=== PATIENT | male | born 1975 | race Two or more races ===

== ENCOUNTER 2024-10-15 08:02 | Inpatient (IN) | payer BC, OTHER ==
[~2024-10-15] VITALS: Ht 177.8 cm; Wt 67.2 kg
[~2024-10-15 08:02] MED LIST: APIX5TAB PO; B-CO-6 PO; CARV25TA55 PO; INSU100I54 SC; INSU1INJ4 SC; ROPI2TAB27 PO
--- NOTE | 2024-10-15 08:40 | ED.PDOC ---
GI ASSESSMENT HPI Comments 49 Y M ADAM, with PMHX of CKD, DM2,CHF, HTN and SHX of a triple bypass presents to the ED with CC of ABD pain. Per EMS patient has been experiencing ABD pain since 10/12/24 which worsened today while receiving dialysis and was sent to the ED after completing it. Patient states that he experiencing epigastric pain with associated symptoms of N/V/D. Patient denies any tobacco usage, ETOH, or illicit drugs. Patient denies SOB, chest pain, fever, chills, or cough. Chief Complaint: Abdominal Pain Time Seen by MD: 07:50 Reviewed Notes: Nurses Notes, Sheet Metal Engineer Notes, Medications, Allergies Allergies: Coded Allergies: Rivaroxaban (Verified Allergy, Unknown, 10/15/24) Information Source: Patient, Emergency Med Personnel Mode of Arrival: EMS Duration: Since onset Prehospital treatment: 12 Lead EKG Vomitus: Watery Stool: Watery Severity: Moderate Recent: None Recent Hx of: None Pain Location: Epigastric Modifying Factors: Nothing Associated sign and symptoms: Nausea, Vomiting, Diarrhea Past Medical History PAST MEDICAL HISTORY: DM, HTN, [place] Surgical History (Other): TRIPLE BIPASS Family History Family History: Unknown Social History Smoker: Non-Smoker Alcohol: Denies ETOH Use Drugs: Denies Drug Use Lives In: Home Constitutional: denies: chills, diaphoresis, fatigue, fever, malaise, sweats, weakness, others EENTM: denies: blurred vision, double vision, ear bleeding, ear discharge, ear drainage, ear pain, ear ringing, eye pain, eye redness, hearing loss, mouth pain, mouth swelling, nasal discharge, nose bleeding, nose congestion, nose pain, photophobia, tearing, throat pain, throat swelling, voice changes, others Respiratory: denies: cough, hemoptysis, orthopnea, SOB at rest, shortness of breath, SOB with excertion, stridor, wheezing, others Cardiovascular: denies: chest pain, dizzy spells, diaphoresis, Dyspnea on exertion, edema, irregular heart beat, left arm pain, lightheadedness, palpitations, PND, syncope, others Gastrointestinal: reports: abdominal pain, diarrhea, nausea, vomiting; denies: abdomen distended, blood streaked bowels, constipated, dysphagia, difficulty swallowing, hematemesis, melena, poor appetite, poor fluid intake, rectal bleeding, rectal pain, others Genitourinary: denies: burning, dysuria, flank pain, frequency, hematuria, incontinence, penile discharge, penile sore, pain, testicle pain, testicle swelling, urgency, others Neurological: denies: dizziness, fainting, headache, left sided numbness, left sided weakness, numbness, paresthesia, pre-existing deficit, right sided numbness, right sided weakness, seizure, speech problems, tingling, tremors, weakness, others Musculoskeletal: denies: back pain, gout, joint pain, joint swelling, muscle pain, muscle stiffness, neck pain, others Integumetry: denies: bruises, change in color, change in hair/nails, dryness, laceration, lesions, lumps, rash, wounds, others Allergic/Immunocompromised: denies: Difficulty Healing, Frequent Infections, Hives, Itching, others Hematologic/Lymphatic: denies: anemia, blood clots, easy bleeding, easy bruising, swollen glands, others Endocrine: denies: excessive hunger, excessive sweating, excessive thirst, excessive urination, flushing, intolerance to cold, intolerance to heat, unexplained weight gain, unexplained weight loss, others Psychiatric: denies: anxiety, bipolar disorder, depression, hopeless, panic disorder, schizophrenia, sleepless, suicidal, others All Other Systems: Reviewed and Negative Physical Exam General Appearance: Moderate Distress, Obese HEENT: Normal ENT Inspection, Pharynx Normal, TMs Normal Neck: Full Range of Motion, Non-Tender, Normal, Normal Inspection Respiratory: Chest Non-Tender, No Accessory Muscle Use, No Respiratory Distress, Other (Coarse breath sounds) Cardiovascular: No Edema, No JVD, No Murmur, No Gallop, Normal Peripheral Pulses, Regular Rate/Rhythm Breast Exam: Deferred Gastrointestinal: No Organomegaly, Non Tender, No Pulsatile Mass, Normal Bowel Sounds, Soft Genitalia: Deferred Pelvic: Deferred Rectal: Deferred Extremities: No calf tenderness, Normal capillary refill, Normal inspection, Normal range of motion, Non-tender, No pedal edema Musculoskeletal : Apperance: Normal Neurologic: Alert, health and safety manager II-XII nml as Tested, No Motor Deficits, Normal Affect, Normal Mood, No Sensory Deficits Cerebellar Function: NOT DONE Reflexes: NOT DONE Skin: Dry, Normal Color, Warm Peripheral Pulses: 3+ Radial (R), 3+ Radial (L) Lymphatic: No Adenopathy EKG EKG : Pulse Rate (adult): 97 Cardiac Rhythm: NSR Block: RBBB Comments LFPB Was a procedure done? Was a procedure done?: No GI differential Dx Differential Diagnosis: Cholangitis, Cholecystitis, Constipation, Esophagitis, Gastritis/PUD, Gastroenteritis, Food Poisoning, Bacterial, Viral, Renal Failure X-Ray, Labs, Meds, VS Vital Signs Date Time Temp Pulse Resp B/P (MAP) Pulse Ox O2 Delivery O2 Flow Rate FiO2 10/15/24 10:19 100 16 96 Room Air* 0 21 10/15/24 10:18 98.6 100 16 139/72 (94) 98 98.6 10/15/24 10:08 100 16 139/72 10/15/24 09:13 97 10/15/24 08:40 90 10/15/24 08:13 97 10/15/24 08:04 98.2 97 18 149/80 (103) 99 Lab Test 10/15/24 08:39 Range/Units White Blood Count 16.8 H 4.4-10.8 10^3/uL Red Blood Count 3.63 L 4.5-5.90 10^6/uL Hemoglobin 11.5 L 13.5-17.5 g/dL Hematocrit 33.9 L 41.0-53.0 % Mean Corpuscular Volume 93.5 80.0-100.0 fL Mean Corpuscular Hemoglobin 31.7 28.0-32.0 pg Mean Corpuscular Hemoglobin Concent 33.9 32.0-36.0 g/dL Red Cell Distribution Width 15.2 H 11.8-14.3 % Platelet Count 240 140-450 10^3/uL Mean Platelet Volume 8.7 6.9-10.8 fL Neutrophils (%) (Auto) 87.8 H 37.0-80.0 % Lymphocytes (%) (Auto) 5.8 L 10.0-50.0 % Monocytes (%) (Auto) 5.5 0.0-12.0 % Eosinophils (%) (Auto) 0.6 0.0-7.0 % Basophils (%) (Auto) 0.3 0.0-2.0 % Neutrophils # (Auto) 14.7 H 1.6-8.6 10 ^3/uL Lymphocytes # (Auto) 1.0 0.4-5.4 10 ^3/uL Monocytes # (Auto) 0.9 0-1.3 10 ^3/uL Eosinophils # (Auto) 0.1 0-0.8 10 ^3/uL Basophils # (Auto) 0.1 0-0.2 10 ^3/uL Nucleated Red Blood Cells 0.1 % Sodium Level 134 L 136-145 mmol/L Potassium Level 3.6 3.5-5.1 mmol/L Chloride Level 90 L 98-107 mmol/L Carbon Dioxide Level 31 20-31 mmol/L Anion Gap 13 5-15 Blood Urea Nitrogen 28 H 9-23 mg/dL Creatinine 4.43 H 0.700-1.30 mg/dL Glomerular Filtration Rate Calc 15 >90 mL/min BUN/Creatinine Ratio 6.3 L 10.0-20.0 Serum Glucose 173 H 74-106 mg/dL Calcium Level 9.9 8.7-10.4 mg/dL Lipase 44 12-53 U/L Current Medications Medications (Trade) Dose Ordered Sig/Joshua Route Start Time Stop Time Status Last Admin Piperacillin Sod/ Tazobactam Sod 100 ml @ 100 mls/hr ONCE ONCE IV 10/15/24 09:45 10/15/24 10:44 DC 10/15/24 12:00 Metronidazole 100 ml @ 100 mls/hr ONCE ONCE IV 10/15/24 09:45 10/15/24 10:44 DC 10/15/24 10:08 Morphine Sulfate 4 mg ONCE ONCE IV 10/15/24 09:45 10/15/24 09:46 DC 10/15/24 10:08 Ondansetron HCl (Zofran) 4 mg ONCE ONCE IV 10/15/24 09:45 10/15/24 09:46 DC 10/15/24 10:08 [place] [address] Ph: [phone] DIAGNOSTIC IMAGING Diagnostic Imaging Report : [id number] Signed PATIENT: Irving Payne ACCT: [id number] UNIT: [id number] : 1975 LOC: ER ROOM / BED: / AGE / SEX: 49 / M ADM STATUS: REG ER SERVICE 4 ORDERING PHYSICIAN: ROBERT ZENG MD PROCEDURE(s): CXRP - CHEST PORTABLE REASON: sob ORDER NUMBER(s): [id number], ACCESSION NUMBER(s): [id number] EXAM: XY CHEST PORTABLE Indication: sob Technique: Single frontal view of the chest was obtained Comparison: None FINDINGS: Lines and Tubes: None Lungs: Pulmonary vascular congestion. Pleura: No effusion. No pneumothorax. Cardiomediastinal contours: Cardiomegaly. Bones: No acute osseous abnormality. IMPRESSION: No acute cardiopulmonary disease. ATED BY: DONNA BALDWIN MD DICTATED DATE/TIME: 10/15/24855 SIGNED BY: DONNA BALDWIN MD SIGNED DATE/TIME: 10/15/24855 CC: Patient alert. Complaining of abdominal pain. Vitals stable. Answering all questions. Symptoms started few days ago but got worse while getting dialysis. He does get dialysis on Monday. WBC elevated. Possible colitis. Establish intravenous access. Was given Zosyn. Was given Flagyl. Reviewed his previous visit. Explained to the patient. Continue cardiac monitoring. CT AB PEL WO CON: [place] [address] Ph: [phone] DIAGNOSTIC IMAGING Diagnostic Imaging Report : [id number] Signed PATIENT: IRVING PAYNE JACCT: [id number] UNIT: [id number] : 1975 LOC: ER ROOM / BED: / AGE / SEX: 49 / M ADM STATUS: REG ER SERVICE 1051 ORDERING PHYSICIAN: OSVALDO VIDALES DNP PROCEDURE(s): ABPL - CT AB PEL WO CON-NO ORAL OR IV REASON: eval for acute abd pain ORDER NUMBER(s): [id number], ACCESSION NUMBER(s): [id number] CLINICAL INFORMATION: 49 years old, Male; acute abdominal pain. TECHNIQUE: Axial CT images of the abdomen and pelvis were obtained without IV contrast. Coronal and sagittal reformatted images were obtained, reviewed, and stored. Evaluation of the parenchymal organs is limited without IV contrast. Evaluation of the bowel and mesentery is limited without oral contrast. All CT scans at this medical facility are performed using dose modulation techniques as appropriate to a performed exam including the following: Automated exposure control was utilized; adjustment of the MA and/or KV according to patient size; and use of iterative reconstruction technique. CTDIvol = 26.76, 0.07, 0.07 mGy DLP = 1619.0 mGy-cm COMPARISON: None FINDINGS: Lung bases: Atelectasis in the lung bases. Liver: Grossly unremarkable in its noncontrast enhanced appearance. No abnormal density or focal lesion identified. Biliary: Distended gallbladder. Moderate adjacent inflammatory stranding. Small calcified gallstone near the gallbladder neck. Spleen: Unremarkable. Pancreas: Moderate atrophy. Adrenal glands: Unremarkable. No mass. Kidneys: No hydronephrosis. Arterial calcifications at the renal joshua bilaterally. No obstructing calculi. Aorta/Vascular: Moderate atherosclerotic calcification. No aneurysm. Retroperitoneum: No mass or lymphadenopathy. Bowel/mesentery: No small bowel obstruction. Appendix is visualized and appears unremarkable. Pelvic organs: Grossly unremarkable. Bladder: Unremarkable. No mass. Abdominal wall: No mass or hernia. Bones: No acute fracture or suspicious intraosseous lesion. IMPRESSION: 1. Distended gallbladder with small calcified gallstone near the gallbladder neck and moderate inflammatory stranding. Findings may be seen with acute cholecystitis in the appropriate clinical setting. Correlate with clinical findings. Ultrasound could be obtained to further characterize. 2. Additional nonacute findings as detailed above. ATED BY: JUAN WATKINS DO DICTATED DATE/TIME: 10/15/24 1135 SIGNED BY: JUAN WATKINS DO SIGNED DATE/TIME: 10/15/24 1135 CC: Time of 1ST Reevaluation: 08:20 Reevaluation 1ST: Unchanged Patient Education/Counseling: Diagnosis, Treatment Family Education/Counseling: No Family Present Departure 1 Departure Time of Disposition: 09:41 Impression: Primary Impression: Acute abdominal pain Additional Impressions: Non-specific colitis Chronic kidney disease on chronic dialysis Disposition: ADMITTED INPATIENT Admit to: Med Surg Condition: Guarded Critical Care Note Critical Care Time?: Yes (45 min-critical care time only) Stability Stability form required: No Heart Score Heart Score: Heart Score Response (Comments) Value History Highly Suspicious 2 EKG Normal 0 Age 45-64 1 Risk Factors >3 or Hx ASHD 2 Troponin Normal limit 0 Total 5 I personally scribed for ROBERT ZENG MD ([email or web address]) on 10/15/24 at 08:40. Electronically submitted by Christ Albrecht ([email or web address]). I personally scribed for ROBERT ZENG MD ([email or web address]) on 10/15/24 at 08:49. Electronically submitted by Christ Albrecht ([email or web address]). I personally scribed for ROBERT ZENG MD ([email or web address]) on 10/15/24 at 09:13. Electronically submitted by Christ Albrecht ([email or web address]). I personally scribed for ROBERT ZENG MD ([email or web address]) on 10/15/24 at 09:30. Electronically submitted by Christ Albrecht ([email or web address]). I personally scribed for ROBERT ZENG MD ([email or web address]) on 10/15/24 at 12:32. Electronically submitted by Christ Albrecht ([email or web address]). ROBERT ZENG MD Oct 15, 2024 08:40
--- NOTE | 2024-10-15 08:57 | DVH ---
EXAM: XY CHEST PORTABLE Indication: sob Technique: Single frontal view of the chest was obtained Comparison: None FINDINGS: Lines and Tubes: None Lungs: Pulmonary vascular congestion. Pleura: No effusion. No pneumothorax. Cardiomediastinal contours: Cardiomegaly. Bones: No acute osseous abnormality. IMPRESSION: No acute cardiopulmonary disease.
[2024-10-15 09:03] LABS: Basophils # (auto) 0.1 10 ^3/uL (0-0.2); Basophils % (auto) 0.3 % (0.0-2.0); Eosinophils # (auto) 0.1 10 ^3/uL (0-0.8); Eosinophils % (auto) 0.6 % (0.0-7.0); Hematocrit 33.9 % (41.0-53.0); Hemoglobin 11.5 g/dL (13.5-17.5); Lymphocytes % (auto) 5.8 % (10.0-50.0); Mean Corpuscular Hemoglobin 31.7 pg (28.0-32.0); Mean Corpuscular Hgb Conc. 33.9 g/dL (32.0-36.0); Mean Corpuscular Volume 93.5 fL (80.0-100.0); Monocytes # (auto) 0.9 10 ^3/uL (0-1.3); Monocytes % (auto) 5.5 % (0.0-12.0); Neutrophils # (auto) 14.7 10 ^3/uL (1.6-8.6); Neutrophils % (auto) 87.8 % (37.0-80.0); Nucleated Red Blood Cells % 0.1 %; Platelet Count (auto) 240 10^3/uL (140-450); Red Blood Cells 3.63 10^6/uL (4.5-5.90); Red Cell Distribution Width 15.2 % (11.8-14.3); White Blood Cell 16.8 10^3/uL (4.4-10.8)
[2024-10-15 09:10] LABS: Potassium 3.6 mmol/L (3.5-5.1)
[2024-10-15 09:11] LABS: Anion Gap 13 (5-15); Calcium 9.9 mg/dL (8.7-10.4); Carbon Dioxide 31 mmol/L (20-31)
[2024-10-15 09:16] LABS: BUN/Creatinine Ratio 6.3 (10.0-20.0); Lipase 44 U/L (12-53)
[2024-10-15 09:20] LABS: Sodium 134 mmol/L (136-145)
[2024-10-15 09:21] LABS: Blood Urea Nitrogen 28 mg/dL (9-23); Chloride 90 mmol/L (98-107); Glucose 173 mg/dL (74-106)
[2024-10-15] MEDS: MORPHINE SULFATE 4 MG/ML SYR/VIAL IV ONE (10:08)
[2024-10-15] MEDS: metroNIDAZOLE 500MG/100ML 100 ML IV ONE (10:08)
[2024-10-15] MEDS: ONDANSETRON HCL 4 MG/2 ML VIAL IV ONE (10:08)
[2024-10-15 10:19] VITALS: PULSE 100; RESP 16; O2SAT 96
--- NOTE | 2024-10-15 11:37 | DVH ---
CLINICAL INFORMATION: 49 years old, Male; acute abdominal pain. TECHNIQUE: Axial CT images of the abdomen and pelvis were obtained without IV contrast. Coronal and sagittal reformatted images were obtained, reviewed, and stored. Evaluation of the parenchymal organs is limited without IV contrast. Evaluation of the bowel and mesentery is limited without oral contra st. All CT scans at this medical facility are performed using dose modulation techniques as appropria te to a performed exam including the following: Automated exposure control was utilized; adjustment o f the MA and/or KV according to patient size; and use of iterative reconstruction technique. CTDIvol = 26.76, 0.07, 0.07 mGy DLP = 1619.0 mGy-cm COMPARISON: None FINDINGS: Lung bases: Atelectasis in the lung bases. Liver: Grossly unremarkable in its noncontrast enhanced appearance. No abnormal density or focal les ion identified. Biliary: Distended gallbladder. Moderate adjacent inflammatory stranding. Small calcified gallstone n ear the gallbladder neck. Spleen: Unremarkable. Pancreas: Moderate atrophy. Adrenal glands: Unremarkable. No mass. Kidneys: No hydronephrosis. Arterial calcifications at the renal joshua bilaterally. No obstructing jose culi. Aorta/Vascular: Moderate atherosclerotic calcification. No aneurysm. Retroperitoneum: No mass or lymphadenopathy. Bowel/mesentery: No small bowel obstruction. Appendix is visualized and appears unremarkable. Pelvic organs: Grossly unremarkable. Bladder: Unremarkable. No mass. Abdominal wall: No mass or hernia. Bones: No acute fracture or suspicious intraosseous lesion. IMPRESSION: 1. Distended gallbladder with small calcified gallstone near the gallbladder neck and moderate inflam matory stranding. Findings may be seen with acute cholecystitis in the appropriate clinical setting. Correlate with clinical findings. Ultrasound could be obtained to further characterize. 2. Additional nonacute findings as detailed above.
[2024-10-15] MEDS: PIPERACILLIN-TAZOB 3.375GM 100 ML IV ONE (12:00)
[2024-10-15] MEDS ORDERED: NITROGLYCERIN 0.4 MG SL TAB SL PRN (12:15)
[2024-10-15] MEDS ORDERED: DEXTROSE (50%) 50ML SYRG IV PRN (12:15)
[2024-10-15] MEDS ORDERED: ONDANSETRON HCL 4 MG/2 ML VIAL IV PRN (12:15)
--- NOTE | 2024-10-15 13:00 | DVH ---
INDICATION: acute gallstone eval for bili duct obstruction ; abdominal pain TECHNIQUE: Multiple real-time sonographic images were obtained of the right upper quadrant. COMPARISON: 10/15/2024 FINDINGS: Evaluation is extremely limited due to body habitus. The liver demonstrates increased echotexture without focal mass lesions. The liver measures 20 cm. T here is no intrahepatic or extrahepatic ductal dilatation. The common duct is not well visualized du e to obscuration from bowel gas. There are gallstones. There is mild gallbladder wall thickening measuring 6 mm. The right kidney measures 11 cm. The right kidney is normal in contour, size, and shape. The echog enicity is normal. There is no hydronephrosis. The pancreas is not well visualized due to overlying bowel gas. IMPRESSION: Evaluation is limited due to body habitus and obscuration from bowel gas. Gallstones with gallbladde r wall thickening. Correlate clinically for acute cholecystitis. Common bile duct not well visualiz ed due to obscuration from bowel gas. Hepatic steatosis and hepatomegaly.
[2024-10-15 13:50] VITALS: BP 122/74; PULSE 88; RESP 18; TEMP 98.7; O2SAT 98
[2024-10-15] MEDS: metroNIDAZOLE 500MG/100ML 100 ML IV SCH (14:00)
[2024-10-15] MEDS: cefTRIAXone 1GM/50ML D5W 50 ML IV ONE (15:08)
--- NOTE | 2024-10-15 16:20 | DVHINCON2 ---
Date of service: Oct 15, 2024 Allergies: Coded Allergies: Rivaroxaban (Verified Allergy, Unknown, 10/15/24) Current Medications Current Medications Medications (Trade) Dose Ordered Sig/Joshua Route PRN Reason Start Time Stop Time Status Last Admin Ondansetron HCl (Zofran) 4 mg Q4HP PRN IV NAUSEA / VOMITING 10/15/24 12:15 Docusate Sodium (Colace Capsule) 100 mg BIDPRN PRN PO FOR CONSTIPATION 10/15/24 12:15 Morphine Sulfate 2 mg Q4HPRN PRN IV SEVERE PAIN (7-10 PAIN SCALE) 10/15/24 12:15 Nitroglycerin (Ntrostat Sublingual) 0.4 mg Q5MINP PRN SL FOR CHEST PAIN 10/15/24 12:15 Diagnostic Test (Pha) (Accu-Chek Comfort Curve T) 1 strip Q6HR 10/15/24 18:00 Insulin Human Regular (InsuLIN R) Q6HR SC 10/15/24 18:00 Dextrose 50 ml UD PRN IV Blood Sugar LESS THAN 60 10/15/24 12:15 Metronidazole 100 ml @ 100 mls/hr Q8HR IV 10/15/24 14:00 Vital Signs Vital Signs Date Time Temp Pulse Resp B/P (MAP) Pulse Ox O2 Delivery O2 Flow Rate FiO2 10/15/24 14:00 99.0 91 16 131/74 (93) 95 99.0 10/15/24 10:19 Room Air* 0 21 Labs/Diagnostic Data Labs Test 10/15/24 08:39 Range/Units White Blood Count 16.8 H 4.4-10.8 10^3/uL Red Blood Count 3.63 L 4.5-5.90 10^6/uL Hemoglobin 11.5 L 13.5-17.5 g/dL Hematocrit 33.9 L 41.0-53.0 % Mean Corpuscular Volume 93.5 80.0-100.0 fL Mean Corpuscular Hemoglobin 31.7 28.0-32.0 pg Mean Corpuscular Hemoglobin Concent 33.9 32.0-36.0 g/dL Red Cell Distribution Width 15.2 H 11.8-14.3 % Platelet Count 240 140-450 10^3/uL Mean Platelet Volume 8.7 6.9-10.8 fL Neutrophils (%) (Auto) 87.8 H 37.0-80.0 % Lymphocytes (%) (Auto) 5.8 L 10.0-50.0 % Monocytes (%) (Auto) 5.5 0.0-12.0 % Eosinophils (%) (Auto) 0.6 0.0-7.0 % Basophils (%) (Auto) 0.3 0.0-2.0 % Neutrophils # (Auto) 14.7 H 1.6-8.6 10 ^3/uL Lymphocytes # (Auto) 1.0 0.4-5.4 10 ^3/uL Monocytes # (Auto) 0.9 0-1.3 10 ^3/uL Eosinophils # (Auto) 0.1 0-0.8 10 ^3/uL Basophils # (Auto) 0.1 0-0.2 10 ^3/uL Nucleated Red Blood Cells 0.1 % Sodium Level 134 L 136-145 mmol/L Potassium Level 3.6 3.5-5.1 mmol/L Chloride Level 90 L 98-107 mmol/L Carbon Dioxide Level 31 20-31 mmol/L Anion Gap 13 5-15 Blood Urea Nitrogen 28 H 9-23 mg/dL Creatinine 4.43 H 0.700-1.30 mg/dL Glomerular Filtration Rate Calc 15 >90 mL/min BUN/Creatinine Ratio 6.3 L 10.0-20.0 Serum Glucose 173 H 74-106 mg/dL Calcium Level 9.9 8.7-10.4 mg/dL Lipase 44 12-53 U/L Assessment [id number] AFEBRILE VSS ABD SOFT TENDER RUQ R/O AC CHOLECYSTITIS KEEP NPO HIGH RISK FOR SURGERY REPEAT CBC CMP CARDIOLOGY CLEARANCE FOR POSSIBLE EMERGENT SURGERY BASED ON ONGOING EVAL Plan discussed with: Patient AUSTYN ROJAS MD Oct 15, 2024 16:20
[2024-10-15 16:41] LABS: Alanine Aminotransferase 16 U/L (7-40); Albumin 4.1 g/dL (3.2-4.8); Anion Gap 10 (5-15); BUN/Creatinine Ratio 6.8 (10.0-20.0); Calcium 9.6 mg/dL (8.7-10.4); Potassium 4.3 mmol/L (3.5-5.1)
[2024-10-15 16:42] LABS: Bilirubin, Total 0.8 mg/dL (0.2-1.0); Total Protein 7.4 g/dL (5.7-8.2)
[2024-10-15 16:45] LABS: Alkaline Phosphatase 127 U/L (46-116); Aspartate Aminotransferase 12 U/L (13-40); Blood Urea Nitrogen 35 mg/dL (9-23); Carbon Dioxide 32 mmol/L (20-31); Chloride 91 mmol/L (98-107); Glucose 205 mg/dL (74-106); Sodium 133 mmol/L (136-145)
[2024-10-15] MEDS: ACCU-CHEK COMFORT CURVE STRIP VI SCH (16:56)
[2024-10-15] MEDS: InsuLIN REG 1unit/0.01ml Soln (100units/ml) SC SCH (17:54)
--- NOTE | 2024-10-15 18:33 | DVHHP2 ---
History of Present Illness Reason for Visit: Abdominal pain History of Present Illness 49-year-old male past medical history CKD on dialysis Monday and Monday last dialysis was today at [facility] diabetes CHF hypertension triple bypass surgery in 2021 chief complaint patient states he has been having abdominal pain since October 12. He was at dialysis he completed the session and the pain was so severe so he comes to the ER for evaluation. Patient was epigastric pain with nausea and vomiting diarrhea but there was no blood in his emesis or diarrhea. Patient states is worse when he is eating he denies any fever he states that Monday night the pain got so severe this is sharp burning pain that is constant nothing makes it better. When evaluating patient's labs and imaging Zofran was given morphine Flagyl Zosyn white count was 16.8 hemoglobin was 11.5 33.9. Chest x-ray unremarkable. Patient had not completed ultrasound prior to my admission but patient had a CT scan of the abdomen pelvis which shows acute cholecystitis. With these findings we will admit and ask for General surgery evaluation Past Medical History See HPI above Past Surgical History See HPI above Family History Reviewed, non-contributory to the management of this case. Past Social History The patient lives at home, denies smoking, alcohol or illicit drugs abuse. Review of Systems Constitutional: No: Fever, Chills, Sweats, Weakness, Malaise, Other Eyes: No: Pain, Vision change, Conjunctivae inflammation, Eyelid inflammation, Other, Redness ENT: No: Ear pain, Ear discharge, Nose pain, Nose discharge, Nose congestion, Mouth pain, Mouth swelling, Throat pain, Throat swelling, Other Respiratory: No: Cough, Dry, Shortness of breath, SOB with excertion, Wheezing, Hemoptysis, Pleuritic Pain, Sputum, Wheezing, Other Cardiovascular: No: Chest Pain, Palpitations, Orthopnea, Paroxysmal Noc. Dyspnea, Edema, Lt Headedness, Other Gastrointestinal: Nausea, Vomiting, Abdominal Pain, Diarrhea; No: Constipation, Melena, Hematochezia, Other Genitourinary: No Dysuria, No Frequency, No Incontinence, No Hematuria, No Retention, No Other Musculoskeletal: No: other, neck pain, shoulder pain, arm pain, back pain, hand pain, leg pain, foot pain Skin: No: Rash, Lesions, Jaundice, Bruising, Other Neurological: No: Weakness, Numbness, Incoordination, Change in speech, Confusion, Seizures, Other Allergies: Coded Allergies: Rivaroxaban (Verified Allergy, Unknown, 10/15/24) Medications Current Medications Medications Dose Ordered Sig/Joshua Route Start Time Stop Time Status Last Admin Dose Admin Ondansetron HCl 4 mg Q4HP PRN IV 10/15/24 12:15 Docusate Sodium 100 mg BIDPRN PRN PO 10/15/24 12:15 Morphine Sulfate 2 mg Q4HPRN PRN IV 10/15/24 12:15 Nitroglycerin 0.4 mg Q5MINP PRN SL 10/15/24 12:15 Diagnostic Test (Pha) 1 strip Q6HR 10/15/24 18:00 10/15/24 16:56 1 STRIP Insulin Human Regular Q6HR SC 10/15/24 18:00 10/15/24 17:54 4 UNITS Dextrose 50 ml UD PRN IV 10/15/24 12:15 Metronidazole 100 ml @ 100 mls/hr Q8HR IV 10/15/24 14:00 Exam Vital Signs Vital Signs Date Time Temp Pulse Resp B/P (MAP) Pulse Ox O2 Delivery O2 Flow Rate FiO2 10/15/24 14:00 99.0 91 16 131/74 (93) 95 99.0 10/15/24 10:19 Room Air* 0 21 General Appearance: Alert, Oriented X3, Cooperative, No acute distress HEENT: Atraumatic, PERRLA, EOMI, Mucous membr. moist/pink Respiratory: Clear to auscultation, Normal air movement Cardiovascular: Regular rate, Normal S1, Normal S2, No murmurs Abdominal: Normal bowel sounds, Soft, Other (Guarding and rebound tenderness to the epigastric region) Extremities: No clubbing, No cyanosis, No edema, Normal pulses, No tenderness/swelling Skin: No rashes, No breakdown, No significant lesion Neuro: Normal gait, Normal speech, Strength at 5/5 X4 ext, Normal tone, Sensation intact, Cranial nerves 3-12 NL Psych/Mental Status: Mental status NL, Mood NL Labs/Xrays I reviewed labs, imaging CT scan abdomen pelvis, EKG and all diagnostic studies on this patient from ED records and the medical chart Ultrasound found with gallstones and infection Labs Test 10/15/24 16:48 10/15/24 16:12 10/15/24 08:39 Range/Units POC Glucose 210 H 70-106 mg/dl Sodium Level 133 L 136-145 mmol/L Potassium Level 4.3 3.5-5.1 mmol/L Chloride Level 91 L 98-107 mmol/L Carbon Dioxide Level 32 H 20-31 mmol/L Anion Gap 10 5-15 Blood Urea Nitrogen 35 H 9-23 mg/dL Creatinine 5.14 H 0.700-1.30 mg/dL Glomerular Filtration Rate Calc 13 >90 mL/min BUN/Creatinine Ratio 6.8 L 10.0-20.0 Serum Glucose 205 H 74-106 mg/dL Calcium Level 9.6 8.7-10.4 mg/dL Total Bilirubin 0.8 0.2-1.0 mg/dL Aspartate Amino Transferase (AST) 12 L 13-40 U/L Alanine Aminotransferase (ALT) 16 7-40 U/L Alkaline Phosphatase 127 H 46-116 U/L Total Protein 7.4 5.7-8.2 g/dL Albumin 4.1 3.2-4.8 g/dL White Blood Count 16.8 H 4.4-10.8 10^3/uL Red Blood Count 3.63 L 4.5-5.90 10^6/uL Hemoglobin 11.5 L 13.5-17.5 g/dL Hematocrit 33.9 L 41.0-53.0 % Mean Corpuscular Volume 93.5 80.0-100.0 fL Mean Corpuscular Hemoglobin 31.7 28.0-32.0 pg Mean Corpuscular Hemoglobin Concent 33.9 32.0-36.0 g/dL Red Cell Distribution Width 15.2 H 11.8-14.3 % Platelet Count 240 140-450 10^3/uL Mean Platelet Volume 8.7 6.9-10.8 fL Neutrophils (%) (Auto) 87.8 H 37.0-80.0 % Lymphocytes (%) (Auto) 5.8 L 10.0-50.0 % Monocytes (%) (Auto) 5.5 0.0-12.0 % Eosinophils (%) (Auto) 0.6 0.0-7.0 % Basophils (%) (Auto) 0.3 0.0-2.0 % Neutrophils # (Auto) 14.7 H 1.6-8.6 10 ^3/uL Lymphocytes # (Auto) 1.0 0.4-5.4 10 ^3/uL Monocytes # (Auto) 0.9 0-1.3 10 ^3/uL Eosinophils # (Auto) 0.1 0-0.8 10 ^3/uL Basophils # (Auto) 0.1 0-0.2 10 ^3/uL Nucleated Red Blood Cells 0.1 % Lipase 44 12-53 U/L Assessment/Plan Assessment/Plan acute intractable abdominal pain likely from acute gallstones and infection found on ct scan ordered morphine as needed for pain npo for now ordered ivf ordered protonix acute cholelithiasis with cholecystitis found on ct can ordered abd us fu results N.p.o. for now ordered Ceftriaxone and Flagyl ordered IV fluids ordered General surgery consult follow-up recs ordered Protonix ordered Type and screen, inr ordered Morphine and Zofran general surgery wants medical clearance ordered echo fu results ordered cards consult fu results acute dehydration from vomiting gently hydration ordered zofran prn nausea chronic ckd on HD sat cont HD for now consulted rickey uncontrolled type 2 dm ordered accucheck q6h while npo uncontrolled benign essential hypertension cont home medication chronic chf no exacerbation monitor fen/ppx protonix ivf no dvt ppx since ambulatory scd plan admit to medicine general surgery consult and evaluation, will need medical clearance prior to surgery (per general surgery Dr. Zimmerman) Plan discussed with: Patient My Orders Orders - OSVALDO VIDALES Marcell DNP Procedure Category Date Status Time Ct Ab Pel Wo Con-No CT 10/15/24 Resulted Oral Or Iv 10:51 Abdomen Limited US 10/15/24 Resulted 12:08 Admit ADMIT 10/15/24 Transmitted 12:08 Allergies CASTILLO 10/15/24 In Process 12:08 Code Status CODE 10/15/24 Transmitted 12:08 Ondansetron Hcl PHA 10/15/24 In Process (Zofran) 12:15 Docusate Sodium PHA 10/15/24 In Process Capsule (Colace 12:15 Complete Blood Count LAB 10/16/24 Verified 04:00 Comprehensive LAB 10/16/24 Verified Metabolic Panel 04:00 Npo (Nothing By DIET 10/15/24 Transmitted Mouth) Diet Lunch Condition: Stable CASTILLO 10/15/24 In Process 12:08 BRP CASTILLO 10/15/24 In Process 12:08 Morphine Sulfate PHA 10/15/24 In Process Injection 12:15 Sequential CASTILLO 10/15/24 In Process Compression Device Nitroglycerin PHA 10/15/24 In Process Sublingual (Ntrostat 12:15 Stat Ekg For Chest CASTILLO 10/15/24 In Process Pain 12:08 Notify Of Changes CASTILLO 10/15/24 In Process From Base 12:08 Convenience Store Clerk For CASTILLO 10/15/24 In Process 24 Hours 12:08 Emergency Dysrhythmia CASTILLO 10/15/24 In Process Protocol 12:08 Rhythm Strips Once CASTILLO 10/15/24 In Process Every Shift 12:08 Oxygen By Nasal RT 10/15/24 Transmitted Cannula 12:08 Glucose Blood PHA 10/15/24 In Process (Accu-Chek Comfort 18:00 Insulin R (Human) PHA 10/15/24 In Process (Insulin R) 18:00 Dextrose 50% Syringe PHA 10/15/24 In Process 12:15 *Dr. Marina TafoyaDa CONS 10/15/24 Transmitted Hayley 12:08 * Surgical Consult CONS 10/15/24 Transmitted Metronidazole PHA 10/15/24 In Process 500mg/100ml (Flagyl 14:00 Communication Order ORDERS 10/15/24 Transmitted 16:12 * Cardiology Consult CONS 10/15/24 Transmitted 16:12 Date of Service: Oct 15, 2024 Billing Provider: OSVALDO VIDALES DNP Common Visit Codes: [id number] INP/OBS CARE (HIGH) OSVALDO VIDALES DNP Oct 15, 2024 18:33
--- NOTE | 2024-10-15 18:55 | DVHINCON2 ---
DATE OF CONSULTATION: 10/15/2024 HISTORY OF PRESENT ILLNESS: This patient is 49 years old, coming in with right upper quadrant pain. No previous episodes. Some nausea. No vomiting, no constipation. No diarrhea. No hematemesis, melena. No bleeding per rectum. PAST MEDICAL HISTORY: Diabetes, hypertension and LA. PAST SURGICAL HISTORY: He has had open heart surgery done, triple bypass recently. PHYSICAL EXAMINATION: VITAL SIGNS: Currently, he is afebrile with stable signs. HEENT: With no evidence of pallor, cyanosis, or jaundice. NECK: Supple, nontender with no thyromegaly, lymphadenopathy. CHEST AND LUNGS: Clear. HEART: Within normal limits. ABDOMEN: Soft, tender right upper quadrant with minimal rebound. EXTREMITIES: Unremarkable. NEUROLOGIC: He is intact. LABORATORY DATA: White cell count is mildly elevated. Liver enzymes are not done. CLINICAL IMPRESSION: Acute cholecystitis or rule out acute cholecystitis. PLAN: Plan will be is to repeat the CMP for liver enzymes and then consider surgery based upon ongoing evaluation. He is high risk for surgery. Will need Cardiology clearance. Ryan Zimmerman MD RG TID: [id number] RECEIPT: [id number] cc: Shamar Degroot MD
--- NOTE | 2024-10-15 19:44 | DVHINCON2 ---
Date Seen: Oct 15, 2024 Referring Physician JENNA Meraz Reason for Consultation Cardiac risk stratification History of Present Illness This is a 49-year-old man who presented to the emergency room via EMS with a chief complaint of abdominal pain x3 days. The patient complains of abdominal p ain associated with epigastric pain, nausea, vomiting, and diarrhea. He has been diagnosed with acute cholecystitis prompting cardiology evaluation prior to surgical intervention. Denies chest pain, palpitations, diaphoresis, shortness of breath, or syncopal events. He underwent a 12 lead electrocardiogram revealing a sinus rhythm with a associated right bundle branch block. Si gnificant medical history includes severe coronary artery disease status post three-vessel coronary artery bypass graft in 2021, ischemic cardiomyopathy, history of PE in 2020 with Eliquis therapy, hypertension, dyslipidemia, insulin- dependent diabetes mellitus, end-stage renal disease on might hemodialysis //Mon, and obesity. Past Medical History Past medical history reviewed. No other significant than mentioned above. Past Surgical History Triple-vessel CABG, 2021 Hemodialysis access Family History Family history reviewed. Social History Denies the use of illicit drugs, alcohol, or tobacco use. Allergies: Coded Allergies: Rivaroxaban (Verified Allergy, Unknown, 10/15/24) Home Meds Reported Medications Semaglutide (Ozempic) 2 Mg/3 Ml Inj, 2 MG SC QWEEKLY for EVERY MONDAY, INJ 10/16/24 Hydralazine Hcl (Hydralazine Hcl) 50 Mg Tab, 1 TAB PO TID, #90 TAB 5 Refills 10/16/24 Isosorbide Mononitrate (Isosorbide Mononitrate Er) 30 Mg Tab, 30 MG PO BID for 30 Days, MG 10/16/24 Losartan Potassium (Losartan Potassium) 25 Mg Tab, 25 MG PO DAILY for 30 Days, MG 10/16/24 Sevelamer Carbonate (Renvela) 800 Mg Tab, 1 TAB PO TID, #270 TAB 3 Refills 10/16/24 Furosemide (Furosemide) 40 Mg Tab, 80 MG PO DAILY for TAKE ON NON-DIALYSIS DAY for 30 Days 10/16/24 Telmisartan (Micardis) 80 Mg Tab, 40 MG PO DAILY, TAB 10/16/24 B-Complex W/ C & Folic Acid (Karoline-Jose Elias Rx) Tab, 1 OR, TAB 10/16/24 Ergocalciferol (Vitamin D (Ergocalciferol) 50,000 Unit Cap, 45018 UNIT PO QWEEKLY, CAP 10/16/24 Sacubitril-Valsartan (Entresto 24-26 mg) 1 Tab Tab, 1 TAB PO BID, TAB 10/16/24 Home Meds Home medications reviewed. Current Medications Current Medications Medications (Trade) Dose Ordered Sig/Joshua Route PRN Reason Start Time Stop Time Status Last Admin Ondansetron HCl (Zofran) 4 mg Q4HP PRN IV NAUSEA / VOMITING 10/15/24 12:15 Docusate Sodium (Colace Capsule) 100 mg BIDPRN PRN PO FOR CONSTIPATION 10/15/24 12:15 Morphine Sulfate 2 mg Q4HPRN PRN IV SEVERE PAIN (7-10 PAIN SCALE) 10/15/24 12:15 Nitroglycerin (Ntrostat Sublingual) 0.4 mg Q5MINP PRN SL FOR CHEST PAIN 10/15/24 12:15 Diagnostic Test (Pha) (Accu-Chek Comfort Curve T) 1 strip Q6HR 10/15/24 18:00 10/15/24 16:56 Insulin Human Regular (InsuLIN R) Q6HR SC 10/15/24 18:00 10/15/24 17:54 Dextrose 50 ml UD PRN IV Blood Sugar LESS THAN 60 10/15/24 12:15 Metronidazole 100 ml @ 100 mls/hr Q8HR IV 10/15/24 14:00 Review of Systems Constitutional: No symptom reported Ears, Nose, & Throat: No symptom reported Eyes: No symptom reported Neurological: No symptoms reported Pulmonary/Respiratory: No symptom reported Cardiovascular: No symptom reported Gastrointestinal: No symptom reported Genitourinary: ABD pain, N/V/D Musculoskeletal: No symptom reported Skin: No symptom reported Psychiatric: No symptom reported Endocrine: No symptom reported Hemotologic/Lymphatic: No symptom reported Vital Signs Vital Signs Date Time Temp Pulse Resp B/P (MAP) Pulse Ox O2 Delivery O2 Flow Rate FiO2 10/15/24 14:00 99.0 91 16 131/74 (93) 95 99.0 10/15/24 10:19 Room Air* 0 21 Physical Exam General Appearance: Cooperative. Well developed. Well nourished. In no acute distress Head Exam: Normal inspection Neck Exam: Normal inspection. Non-tender. Normal alignment Pulmonary/Respiratory: Chest non-tender. Clear bilateral breath sounds Cardiovascular/Chest: Regular rate and rhythm. S1, S2. Sinus rhythm with RBBB. No murmurs. No JVD. Peripheral Pulses: 2+ Radial (R). 2+ Radial (L). 2+ Pedal (R). 2+ Pedal (L) Abdominal Exam: Normal bowel sounds. Soft. Nontender. No hepatospenomegaly. No masses Ankle Exam: Negative ankle edema Lower extremities: Negative lower extremity edema Neuro/Mental Status: A&O x4. Coherent Thoughts/Psych: Normal thought pattern. Appropriate mood and affect. Good judgement and insight Appearance: In no acute distress Skin Exam: Normal inspection. Normal color. Warm. Dry Labs/Diagnostic Data Labs Test 10/15/24 16:48 10/15/24 16:12 10/15/24 08:39 Range/Units POC Glucose 210 H 70-106 mg/dl Sodium Level 133 L 136-145 mmol/L Potassium Level 4.3 3.5-5.1 mmol/L Chloride Level 91 L 98-107 mmol/L Carbon Dioxide Level 32 H 20-31 mmol/L Anion Gap 10 5-15 Blood Urea Nitrogen 35 H 9-23 mg/dL Creatinine 5.14 H 0.700-1.30 mg/dL Glomerular Filtration Rate Calc 13 >90 mL/min BUN/Creatinine Ratio 6.8 L 10.0-20.0 Serum Glucose 205 H 74-106 mg/dL Calcium Level 9.6 8.7-10.4 mg/dL Total Bilirubin 0.8 0.2-1.0 mg/dL Aspartate Amino Transferase (AST) 12 L 13-40 U/L Alanine Aminotransferase (ALT) 16 7-40 U/L Alkaline Phosphatase 127 H 46-116 U/L Total Protein 7.4 5.7-8.2 g/dL Albumin 4.1 3.2-4.8 g/dL White Blood Count 16.8 H 4.4-10.8 10^3/uL Red Blood Count 3.63 L 4.5-5.90 10^6/uL Hemoglobin 11.5 L 13.5-17.5 g/dL Hematocrit 33.9 L 41.0-53.0 % Mean Corpuscular Volume 93.5 80.0-100.0 fL Mean Corpuscular Hemoglobin 31.7 28.0-32.0 pg Mean Corpuscular Hemoglobin Concent 33.9 32.0-36.0 g/dL Red Cell Distribution Width 15.2 H 11.8-14.3 % Platelet Count 240 140-450 10^3/uL Mean Platelet Volume 8.7 6.9-10.8 fL Neutrophils (%) (Auto) 87.8 H 37.0-80.0 % Lymphocytes (%) (Auto) 5.8 L 10.0-50.0 % Monocytes (%) (Auto) 5.5 0.0-12.0 % Eosinophils (%) (Auto) 0.6 0.0-7.0 % Basophils (%) (Auto) 0.3 0.0-2.0 % Neutrophils # (Auto) 14.7 H 1.6-8.6 10 ^3/uL Lymphocytes # (Auto) 1.0 0.4-5.4 10 ^3/uL Monocytes # (Auto) 0.9 0-1.3 10 ^3/uL Eosinophils # (Auto) 0.1 0-0.8 10 ^3/uL Basophils # (Auto) 0.1 0-0.2 10 ^3/uL Nucleated Red Blood Cells 0.1 % Lipase 44 12-53 U/L Assessment Preprocedural cardiovascular examination Acute cholecystitis Coronary artery disease status post triple-vessel CABG, 2021 Chronic compensated HFrEF Hx of PE on Eliquis therapy Hypertension Dyslipidemia Insulin-dependent diabetes mellitus Obesity Plan/Recommendation (Dr. Gong) Preliminary transthoracic echocardiogram reveals an EF of approximately 35%. Revised cardiac risk index (Raghu criteria): 15% 30-day risk of , [place], or cardiac arrest. The patient with underlying history of congestive heart failure and coronary artery disease is cardiac stable at this time. Per Cardiology standpoint, the patient is at a moderate-risk for moderate-risk surgery. Resume Eliquis therapy within 24 hours if low postprocedural bleeding risk. In the meantime, initiate DVT/VTE prophylaxis. There is no additional cardiac workup indicated prior to surgery. Thank you for allowing us to care for this patient. Please call with any questions or concerns. This medical document was created using an electronic medical record system with voice recognition software and computerized dictation system. Although this document has been carefully reviewed, there might still be some phonetic and typographical errors. Occasional wrong-word or ``sound-alike substitutions may have occurred due to the inherent limitations of voice recognition software. These areas are purely typographical due to imperfections of the software programs and do not reflect any compromise in the patient's medical care. Please read the chart carefully and recognize, using context, where these substitutions have occurred. Plan discussed with: Patient, Other Date of Service: Oct 15, 2024 Billing Provider: TEODORA GONG MD Cardiology Common Codes: [id number] INP/OBS CARE (High) ANGELA PAYNE CLOTHES DESIGNER Oct 15, 2024 19:44
[2024-10-15 21:26] VITALS: BP 133/76; PULSE 93; RESP 20; TEMP 98.9
[2024-10-15] MEDS: CARVEDILOL 3.125 MG TAB PO SCH (22:42)
--- NOTE | 2024-10-15 22:50 | DVHSR ---
APPROVED REPORT EXAM: Two-dimensional and M-mode echocardiogram with Doppler and color Doppler. Blood Pressure: 131/74 mmHg INDICATION Pre-Op Surgery/Intervention CABG: RISK FACTORS Obesity: Height: 6'0", Weight: 230 DIMENSIONS LVDd5.9 (3.8-5.7cm)LA (2D)4.9 (1.9-4.0cm)Aortic Root3.4 (2.0-3.7cm) LVDs4.9 (2.5-4.0cm)LA (MM) (1.9-4.0cm)Aortic Cusp Exc2.3 (1.5-2.0cm) EF (%) 35.0 (55-70%)Rt. Atrium4.2 (1.9-4.0cm)Asc. Aorta cm IVSd1.4 (0.7-1.1cm)RV (D)4.7 (1.8-2.4cm) PWd1.3 (0.7-1.1cm) Mitral Valve MitralMitral Stenosis E wave1.23m/sMV Mean GR.mmHg A wave0.68m/sMV Peak GR.mmHg E/A ratio1.82D MVAcm2 DECEL [id number] 1/2 Timems Aortic Valve Aortic ValveAortic Stenosis V10.80m/Ebenezer Mean GR.3mmHg V21.23m/Ebenezer Peak GR.6mmHg LVOT Diameter2.3 (1.8-2.4cm)Doppler AVA2.70cm2 Tricuspid Valve TR Velocity2.96m/s [id number] Other Information Quality : LimitedRhythm : Technically limited study due to body habitus and CABG. Conclusion Severely dilated left ventricle. Severely reduced left ventricular systolic function estimated eject ion fraction 35%. There is a grade 2 diastolic dysfunction. Normal left ventricular size and dimension. Normal left ventricular systolic function. [id number] rately elevated right ventricular systolic pressure 40 mm of mercury. Mildly dilated left atrium. Normal-sized right atrium. Normal aortic valve structure and function. Normal mitral valve structure and function. Normal tricuspid valve structure and function. The pulmonary valve is grossly normal. No pericardial effusion.
[2024-10-16 01:35] VITALS: BP 125/68; PULSE 92; RESP 17; TEMP 98.5; O2SAT 98
[2024-10-16 01:43] VITALS: BP 125/68; PULSE 92; RESP 17; TEMP 98.5; O2SAT 98
[2024-10-16] MEDS ORDERED: LOSA-533 PO (01:51)
[2024-10-16] MEDS ORDERED: SEMA2INJ3 SC (01:51)
[2024-10-16] MEDS ORDERED: ISOS1TAB28 PO (01:51)
[2024-10-16] MEDS ORDERED: SEVE800T8 PO (01:51)
[2024-10-16] MEDS ORDERED: SACU1TAB PO (01:51)
[2024-10-16] MEDS ORDERED: TELM80TA PO (01:51)
[2024-10-16] MEDS ORDERED: HYDR50TA47 PO (01:51)
[2024-10-16] MEDS ORDERED: FURO40TA4 PO (01:51)
[2024-10-16] MEDS ORDERED: ERGO500086 PO (01:51)
[2024-10-16 06:01] LABS: Basophils # (auto) 0.1 10 ^3/uL (0-0.2); Basophils % (auto) 0.6 % (0.0-2.0); Eosinophils # (auto) 0.2 10 ^3/uL (0-0.8); Eosinophils % (auto) 1.8 % (0.0-7.0); Hematocrit 29.7 % (41.0-53.0); Hemoglobin 10.2 g/dL (13.5-17.5); Lymphocytes # (auto) 0.9 10 ^3/uL (0.4-5.4); Lymphocytes % (auto) 8.2 % (10.0-50.0); Mean Corpuscular Hemoglobin 32.1 pg (28.0-32.0); Mean Corpuscular Hgb Conc. 34.4 g/dL (32.0-36.0); Mean Corpuscular Volume 93.3 fL (80.0-100.0); Monocytes # (auto) 0.9 10 ^3/uL (0-1.3); Monocytes % (auto) 7.8 % (0.0-12.0); Neutrophils # (auto) 8.9 10 ^3/uL (1.6-8.6); Neutrophils % (auto) 81.6 % (37.0-80.0); Platelet Count (auto) 210 10^3/uL (140-450); Red Blood Cells 3.18 10^6/uL (4.5-5.90); Red Cell Distribution Width 15.1 % (11.8-14.3)
[2024-10-16 06:16] LABS: Alanine Aminotransferase 15 U/L (7-40); Albumin 3.8 g/dL (3.2-4.8); Anion Gap 12 (5-15); Aspartate Aminotransferase 14 U/L (13-40); BUN/Creatinine Ratio 7.3 (10.0-20.0); Bilirubin, Total 0.7 mg/dL (0.2-1.0); Calcium 9.3 mg/dL (8.7-10.4); Carbon Dioxide 31 mmol/L (20-31); Potassium 4.4 mmol/L (3.5-5.1)
[2024-10-16 06:35] LABS: Alkaline Phosphatase 165 U/L (46-116); Blood Urea Nitrogen 46 mg/dL (9-23); Chloride 92 mmol/L (98-107); Glucose 201 mg/dL (74-106); Sodium 135 mmol/L (136-145)
--- NOTE | 2024-10-16 06:41 | ECG ---
[facility] Test Date: 2024-10-15 Test Time: 08:13:27 Pat Name: SANDRA MENDES Department: ER Room: 0214 Gender: M [employer] Director: FUNMI : 1975 Requested By: ROBERT ZENG Order Number: [id number] Reading MD: Colt Marley Measurements Intervals [place] Rate: 97 P: 59 GA: 181 QRS: 176 QRSD: 152 T: 14 QT: 408 QTc: 519 Interpretive Statements Sinus rhythm RBBB and LPFB Baseline wander in lead(s) V1,V4,V5,V6 Electronically Signed On 10-18-2024 12:38:06 PST by Colt Marley Please click the below link to view image of tracing.
--- NOTE | 2024-10-16 07:38 | DVHINCON2 ---
Date of service: Oct 16, 2024 Referring Physician Hina Meraz NP Reason for Consultation End-stage kidney disease History of Present Illness This is a 49-year-old male with history of end-stage kidney disease on hemodialysis, coronary artery disease status post CABG presenting to the emergency room because of abdominal pain for the past five days. Initial evaluation in the emergency room showed evidence of cholelithiasis with acute cholecystitis. Patient admitted for further evaluation by the surgeon. Nephrology consulted for continuation of dialysis. Patient's dialysis days are Tuesdays and Monday. Past Medical History End-stage kidney disease on hemodialysis Type 2 diabetes Hypertension Coronary artery disease Ischemic cardiomyopathy Past Surgical History CABG Family History: Patient reports no known family medical history. Social History No active history of smoking, alcohol or drug abuse Allergies: Coded Allergies: Rivaroxaban (Verified Allergy, Unknown, 10/15/24) Home Meds Reported Medications Semaglutide (Ozempic) 2 Mg/3 Ml Inj, 2 MG SC QWEEKLY for EVERY MONDAY, INJ 10/16/24 Hydralazine Hcl (Hydralazine Hcl) 50 Mg Tab, 1 TAB PO TID, #90 TAB 5 Refills 10/16/24 Isosorbide Mononitrate (Isosorbide Mononitrate Er) 30 Mg Tab, 30 MG PO BID for 30 Days, MG 10/16/24 Losartan Potassium (Losartan Potassium) 25 Mg Tab, 25 MG PO DAILY for 30 Days, MG 10/16/24 Sevelamer Carbonate (Renvela) 800 Mg Tab, 1 TAB PO TID, #270 TAB 3 Refills 10/16/24 Furosemide (Furosemide) 40 Mg Tab, 80 MG PO DAILY for TAKE ON NON-DIALYSIS DAY for 30 Days 10/16/24 Telmisartan (Micardis) 80 Mg Tab, 40 MG PO DAILY, TAB 10/16/24 B-Complex W/ C & Folic Acid (Karoline-Jose Elias Rx) Tab, 1 OR, TAB 10/16/24 Ergocalciferol (Vitamin D (Ergocalciferol) 50,000 Unit Cap, 51253 UNIT PO QWEEKLY, CAP 10/16/24 Sacubitril-Valsartan (Entresto 24-26 mg) 1 Tab Tab, 1 TAB PO BID, TAB 10/16/24 Current Medications Current Medications Medications (Trade) Dose Ordered Sig/Joshua Route PRN Reason Start Time Stop Time Status Last Admin Ondansetron HCl (Zofran) 4 mg Q4HP PRN IV NAUSEA / VOMITING 10/15/24 12:15 Docusate Sodium (Colace Capsule) 100 mg BIDPRN PRN PO FOR CONSTIPATION 10/15/24 12:15 Morphine Sulfate 2 mg Q4HPRN PRN IV SEVERE PAIN (7-10 PAIN SCALE) 10/15/24 12:15 Nitroglycerin (Ntrostat Sublingual) 0.4 mg Q5MINP PRN SL FOR CHEST PAIN 10/15/24 12:15 Diagnostic Test (Pha) (Accu-Chek Comfort Curve T) 1 strip Q6HR 10/15/24 18:00 10/16/24 05:21 Insulin Human Regular (InsuLIN R) Q6HR SC 10/15/24 18:00 10/15/24 17:54 Dextrose 50 ml UD PRN IV Blood Sugar LESS THAN 60 10/15/24 12:15 Metronidazole 100 ml @ 100 mls/hr Q8HR IV 10/15/24 14:00 10/16/24 05:21 Carvedilol (Coreg Tablet) 6.25 mg Q12HR PO 10/15/24 22:00 10/15/24 22:42 Review of Systems 12 point review of systems negative except as stated in the HPI Vital Signs Vital Signs Date Time Temp Pulse Resp B/P (MAP) Pulse Ox O2 Delivery O2 Flow Rate FiO2 10/16/24 01:43 98.5 92 17 125/68 (87) 98 98.5 10/16/24 01:42 Room Air* 0 21 Physical Exam Awake alert oriented x3 HEENT: Normocephalic, no JVD Lungs: Bilateral good air entry CVS: S1, S2 regular rate rhythm Abdomen: Soft. Epigastric and RUQ pain YARD SUPERVISOR: No focal deficits Extremities: No edema Labs/Diagnostic Data Labs Test 10/16/24 05:19 10/16/24 05:14 10/15/24 08:39 Range/Units POC Glucose 223 H 70-106 mg/dl White Blood Count 11.0 #H 4.4-10.8 10^3/uL Red Blood Count 3.18 L 4.5-5.90 10^6/uL Hemoglobin 10.2 L 13.5-17.5 g/dL Hematocrit 29.7 #L 41.0-53.0 % Mean Corpuscular Volume 93.3 80.0-100.0 fL Mean Corpuscular Hemoglobin 32.1 H 28.0-32.0 pg Mean Corpuscular Hemoglobin Concent 34.4 32.0-36.0 g/dL Red Cell Distribution Width 15.1 H 11.8-14.3 % Platelet Count 210 140-450 10^3/uL Mean Platelet Volume 9.0 6.9-10.8 fL Neutrophils (%) (Auto) 81.6 H 37.0-80.0 % Lymphocytes (%) (Auto) 8.2 L 10.0-50.0 % Monocytes (%) (Auto) 7.8 0.0-12.0 % Eosinophils (%) (Auto) 1.8 0.0-7.0 % Basophils (%) (Auto) 0.6 0.0-2.0 % Neutrophils # (Auto) 8.9 H 1.6-8.6 10 ^3/uL Lymphocytes # (Auto) 0.9 0.4-5.4 10 ^3/uL Monocytes # (Auto) 0.9 0-1.3 10 ^3/uL Eosinophils # (Auto) 0.2 0-0.8 10 ^3/uL Basophils # (Auto) 0.1 0-0.2 10 ^3/uL Nucleated Red Blood Cells 0.0 % Sodium Level 135 L 136-145 mmol/L Potassium Level 4.4 3.5-5.1 mmol/L Chloride Level 92 L 98-107 mmol/L Carbon Dioxide Level 31 20-31 mmol/L Anion Gap 12 5-15 Blood Urea Nitrogen 46 #H 9-23 mg/dL Creatinine 6.27 H 0.700-1.30 mg/dL Glomerular Filtration Rate Calc 10 >90 mL/min BUN/Creatinine Ratio 7.3 L 10.0-20.0 Serum Glucose 201 H 74-106 mg/dL Calcium Level 9.3 8.7-10.4 mg/dL Total Bilirubin 0.7 0.2-1.0 mg/dL Aspartate Amino Transferase (AST) 14 13-40 U/L Alanine Aminotransferase (ALT) 15 7-40 U/L Alkaline Phosphatase 165 H 46-116 U/L Total Protein 7.0 5.7-8.2 g/dL Albumin 3.8 3.2-4.8 g/dL Lipase 44 12-53 U/L Assessment End-stage kidney disease on hemodialysis Acute cholecystitis Coronary artery disease status post CABG Ischemic cardiomyopathy Type 2 diabetes Hypertension Obesity Plan/Recommendation We will continue with dialysis on TTS schedule. Surgical intervention after cardiac clearance Plan discussed with: Patient ROSSANA COOL MD Oct 16, 2024 07:38
[2024-10-16 09:00] VITALS: BP 111/69; PULSE 93; RESP 19; TEMP 99.4; O2SAT 94
[2024-10-16] MEDS ORDERED: VANCOMYCIN PER PHARMACY 0 MG IV SCH (09:45)
--- NOTE | 2024-10-16 10:13 | DVHPN2 ---
Progress Note Date Seen: Oct 16, 2024 Medical Necessity Reason Pt with a Central, PICC or Fol: No Objective vital signs Vital Sign Date Time Temp Pulse Resp B/P (MAP) Pulse Ox O2 Delivery O2 Flow Rate FiO2 10/16/24 01:43 98.5 92 17 125/68 (87) 98 98.5 10/16/24 01:42 Room Air* 0 21 Total Intake and Output 10/15/24 10/15/24 10/16/24 15:00 23:00 07:00 Intake Total 0 ml 0 ml Balance 0 ml 0 ml medications Current Medications Medications Dose Ordered Sig/Joshua Route Start Time Stop Time Status Last Admin Dose Admin Ondansetron HCl 4 mg Q4HP PRN IV 10/15/24 12:15 Docusate Sodium 100 mg BIDPRN PRN PO 10/15/24 12:15 Morphine Sulfate 2 mg Q4HPRN PRN IV 10/15/24 12:15 Nitroglycerin 0.4 mg Q5MINP PRN SL 10/15/24 12:15 Diagnostic Test (Pha) 1 strip Q6HR 10/15/24 18:00 10/16/24 05:21 1 STRIP Insulin Human Regular Q6HR SC 10/15/24 18:00 10/15/24 17:54 4 UNITS Dextrose 50 ml UD PRN IV 10/15/24 12:15 Metronidazole 100 ml @ 100 mls/hr Q8HR IV 10/15/24 14:00 10/16/24 05:21 100 MLS/HR Carvedilol 6.25 mg Q12HR PO 10/15/24 22:00 10/15/24 22:42 6.25 MG Cefepime HCl 50 ml @ 12.5 mls/hr DAILY IV 10/16/24 10:00 UNV Vancomycin HCl 0 ml @ 0 mls/hr UD IV 10/16/24 09:45 UNV laboratory and microbiology Laboratory Tests 10/16/24 05:14 Test 10/16/24 05:14 Range/Units Serum Glucose 201 H 74-106 mg/dL Problem List/Assessment/Plan Problem List/Assessment/Plan AFEBRILE VSS ABD SOFT LESS TENDER WBC DOWN LFT ALKP ELEVATED R/O CBD STONE MRCP ALLOW CLEAR LIQUIDS PIEDAD CARDIOLOGY EVAL NOTED Plan discussed with: Patient My Orders My Orders Orders - AUSTYN ROJAS MD Procedure Category Date Status Time Mrcp Mri MRI 10/16/24 Logged 10:08 Clear Liq Diet DIET 10/16/24 Transmitted Lunch AUSTYN ROJAS MD Oct 16, 2024 10:13
[2024-10-16] MEDS: VANCOMYCIN 1GM/250ML KIT 250 ML IV SCH (11:00)
[2024-10-16] MEDS: HEPARIN SODIUM (PORCINE) 5000 UNITS/ML 1ML VIAL SC ONE (11:50)
--- NOTE | 2024-10-16 12:19 | DVH ---
CLINICAL INDICATION: right diabetic ulcer TECHNIQUE: XY R FOOT 2 VIEW XRAY Comparison: None FINDINGS/IMPRESSION: There is no evidence of acute fracture or dislocation. Diffuse soft tissue swelling. No radiographic evidence for osteomyelitis. The alignment is anatomical. There is no radiopaque foreign body.
[2024-10-16 12:30] VITALS: BP 129/71; PULSE 84; RESP 18; TEMP 98.1; O2SAT 95
--- NOTE | 2024-10-16 13:11 | DVH ---
MRCP WITHOUT CONTRAST CLINICAL HISTORY: R/O CBD Stone TECHNIQUE: Multiplanar, multisequence MRCP and MR images of the abdomen without contrast. 3D MRCP was performed using maximum intensity projection reconstruction on an independent workstation under concurrent supervision. Comparison: None FINDINGS: The gallbladder appears within normal limits on MRI without evidence gallstones. There is no biliary ductal dilatation. The common bile duct measures 5 mm in maximum diameter. There is no intraluminal f illing defect in the common bile duct. There is no pancreatic ductal dilatation. The liver, spleen, pancreas, kidneys, adrenal glands appear within normal limits.. There is no free f luid or free air. The visualized small and large bowel loops demonstrate normal caliber. Lung bases a re clear. Osseous structures appear within normal limits. IMPRESSION: 1. Unremarkable MRCP. There is no evidence of cholelithiasis or choledocholithiasis. There is no bili maci ductal dilatation. HS:Y
--- NOTE | 2024-10-16 13:34 | DVHPNRES ---
Progress Note Date Seen: Oct 16, 2024 Resident Creating Document: JHAJMARTÍN WrightOLIVIA RESIDENT Medical Necessity Reason Pt with a Central, PICC or Fol: No Subjective Review of Systems Patient is a 49-year-old male with a past medical history as described below came to the ED with a chief complaint of abdominal pain for the last 4 days. Patient reported that on the past Monday he started having abdominal pain in the epigastric and the right upper quadrant associated with nausea and multiple episodes of vomiting which were mostly yellowish frothy liquid but no associated blood. Patient reported that [place] the border in [place] hospital there where he got medication for pain relief but as he was not feeling well he came back the next 2 days he did not have an appetite and could only tolerate water and only small amount of liquids. Patient has a history of end- stage renal disease and is on dialysis Monday. He went to the dialysis yesterday and while he was there he started having severe abdominal pain which was not tolerable, had to stop dialysis and was brought in by ambulance to the hospital. Past medical history: End-stage renal disease on dialysis TTS, hypertension, CABG, type 2 diabetes mellitus Past surgical history: CABG Social history: Denies smoking, alcohol, drug use Home medications: Carvedilol 50 mg b.i.d., Entresto 02/23/2026 once daily, isosorbide mononitrate 60 mg b.i.d., insulin Humalog and Humulin, phosphorus binders, hydralazine 100 mg t.i.d., atorvastatin 80 mg, aspirin 81 mg Review of systems Patient was seen and examined at the bedside. Alert and oriented x 4. Reports mild abdominal pain. Patient has a Calix's sign positive. Reports passing gas but has not passed a stool since Monday. Denies nausea, vomiting currently. Patient has a right foot plantar surface ulcer likely due to diabetes. Objective vital signs Vital Sign Date Time Temp Pulse Resp B/P (MAP) Pulse Ox O2 Delivery O2 Flow Rate FiO2 10/16/24 11:00 93 111/69 10/16/24 09:00 99.4 19 94 99.4 10/16/24 08:00 Room Air* 0 21 Total Intake and Output 10/15/24 10/15/24 10/16/24 15:00 23:00 07:00 Intake Total 0 ml 0 ml Balance 0 ml 0 ml medications Current Medications Medications Dose Ordered Sig/Joshua Route Start Time Stop Time Status Last Admin Dose Admin Ondansetron HCl 4 mg Q4HP PRN IV 10/15/24 12:15 Docusate Sodium 100 mg BIDPRN PRN PO 10/15/24 12:15 Morphine Sulfate 2 mg Q4HPRN PRN IV 10/15/24 12:15 Nitroglycerin 0.4 mg Q5MINP PRN SL 10/15/24 12:15 Diagnostic Test (Pha) 1 strip Q6HR 10/15/24 18:00 10/16/24 12:00 1 STRIP Insulin Human Regular Q6HR SC 10/15/24 18:00 10/16/24 12:00 4 UNITS Dextrose 50 ml UD PRN IV 10/15/24 12:15 Metronidazole 100 ml @ 100 mls/hr Q8HR IV 10/15/24 14:00 10/16/24 05:21 100 MLS/HR Cefepime HCl 50 ml @ 12.5 mls/hr DAILY IV 10/16/24 10:00 Vancomycin HCl 0 ml @ 0 mls/hr UD IV 10/16/24 09:45 Heparin Sodium (Porcine) 5,000 units Q12HR SC 10/16/24 22:00 Carvedilol 12.5 mg Q12HR PO 10/16/24 22:00 Examination Physical Examination Gen - no pallor, no icterus, no cyanosis, no clubbing, no LAD, 1+ edema. Skin - Patients skin is warm and dry. HEENT - normocephalic, atraumatic, dry mucous membranes. Neck - full ROM, no LAD, no JVD. Pulmonary - B/L equal breath sounds heard with bibasilar crackles, no wheezing. cardiovascular - normal S1,S2 heard. no murmurs heard. peripheral pulses normal radial 2+, pedal 2+. capillary refill normal <2 secs. GI - soft abdomen with tenderness to palpation in the right right upper quadrant and epigastrium. Calix signs positive. no hepatospleenomegaly. Bowel sounds hypoactive Neurological - Patient is A/O X 3 . Bilateral upper extremity strength 5/5, bilateral lower extremity strength 5/5, no facial droop, normal speech, no tremor, decreased touch sensation in both the feet laboratory and microbiology Laboratory Tests 10/16/24 05:14 Test 10/16/24 05:14 Range/Units Serum Glucose 201 H 74-106 mg/dL Problem List/Assessment/Plan Problem List/Assessment/Plan Assessment and plan # acute abdominal pain # acute intractable nausea and vomiting # acute cholecystitis - CT abdomen pelvis shows distended gallbladder with small calcified gallstones day of the bed and neck and moderate inflammatory stranding - RUQ ultrasound shows gallstones with gallbladder wall thickening - elevated ALP - MRCP shows no no biliary ductal dilation, no evidence of choledocholithiasis - surgery consulted - patient was on IV metronidazole and cefepime - Zofran p.r.n. for nausea, vomiting - clear liquid diet # diabetic foot ulcer - Gram stain and culture pending - foot x-ray shows soft tissue swelling and no radiographic evidence osteomyelitis - patient is started on vancomycin and cefepime IV - podiatry consulted # leukocytosis with left shift - likely due to acute cholecystitis vs foot ulcer -on IV antibiotics # end-stage renal disease on dialysis - on dialysis Monday - dialysis tomorrow 10/17/2024 # coronary artery disease status post CABG # ischemic cardiomyopathy # heart failure with reduced ejection fraction - echo shows severely dilated left ventricle, LVEF 35%, grade 2 diastolic dysfunction Mild to moderately elevated RVSP at 40 mmHg - patient on carvedilol - with the medications to be started as tolerated. # uncontrolled type 2 diabetes mellitus with hyperglycemia - insulin Lantus 15 units HS - mild insulin sliding scale - goal blood glucose level 140-180 mg/dL Goals of care discussed with the patient for over 33 minutes. Full code Plan discussed with Dr. Kaiser Plan discussed with: Patient My Orders My Orders Orders - MARY ANN GALICIA RESIDENT Procedure Category Date Status Time Cefepime 1gm/ 50ml PHA 10/16/24 In Process (Maxipime 1gm/50ml) 10:00 Vancomycin Per PHA 10/16/24 In Process Pharmacy 09:45 Wound Culture W/ Gs ROLAN 10/16/24 In Process 09:38 Creatinine LAB 10/17/24 Verified 05:00 Vancomycin,Random LAB 10/17/24 Verified 05:00 R Foot 2 View Xray XY 10/16/24 Resulted 10:58 Discontinue Tele CASTILLO 10/16/24 In Process 11:04 Transfer Orders XFER 10/16/24 Transmitted 11:04 * Wound Consult CONS 10/16/24 Transmitted Carvedilol Tablet PHA 10/16/24 In Process (Coreg Tablet) 22:00 Date of Service: Oct 16, 2024 Billing Provider: GHAZALA HACKETT MD Common Visit Codes: [id number] INP/OBS CARE(HIGH) MARY ANN GALICIA RESIDENT Oct 16, 2024 13:34 GHAZALA HACKETT MD Oct 17, 2024 09:16
[2024-10-16] MEDS: CEFEPIME 1GM/ 50ML 50 ML IV SCH (14:55)
--- NOTE | 2024-10-16 16:53 | DVHINCON2 ---
Date Seen: Oct 16, 2024 Reason for Consultation Right foot wound History of Present Illness 49-year-old male past medical history CKD on dialysis Monday and Monday last dialysis was today at [facility] diabetes CHF hypertension triple bypass surgery in 2021 chief complaint patient states he has been having a bdominal pain since October 12. He was at dialysis he completed the session and the pain was so severe so he comes to the ER for evaluation. Patient was epigastric pain with nausea and vomiting diarrhea but there was no blood in his emesis or diarrhea. Patient states is worse when he is eating he denies any fever he states that Monday night the pain got so severe this is sharp burning pain that is constant nothing makes it better. When evaluating patient's labs and imaging Zofran was given morphine Flagyl Zosyn white count was 16.8 hemoglobin was 11.5 33.9. Chest x-ray unremarkable. Patient had not completed ultrasound prior to my admission but patient had a CT scan of the abdomen pelvis which shows acute cholecystitis. With these findings we will admit and ask for General surgery evaluation Past Medical History See H&P Past Surgical History See H&P Family History: Patient reports no known family medical history. Allergies: Coded Allergies: Rivaroxaban (Verified Allergy, Unknown, 10/15/24) Home Meds Reported Medications Semaglutide (Ozempic) 2 Mg/3 Ml Inj, 2 MG SC QWEEKLY for EVERY MONDAY, INJ 10/16/24 Hydralazine Hcl (Hydralazine Hcl) 50 Mg Tab, 1 TAB PO TID, #90 TAB 5 Refills 10/16/24 Isosorbide Mononitrate (Isosorbide Mononitrate Er) 30 Mg Tab, 30 MG PO BID for 30 Days, MG 10/16/24 Losartan Potassium (Losartan Potassium) 25 Mg Tab, 25 MG PO DAILY for 30 Days, MG 10/16/24 Sevelamer Carbonate (Renvela) 800 Mg Tab, 1 TAB PO TID, #270 TAB 3 Refills 10/16/24 Furosemide (Furosemide) 40 Mg Tab, 80 MG PO DAILY for TAKE ON NON-DIALYSIS DAY for 30 Days 10/16/24 Telmisartan (Micardis) 80 Mg Tab, 40 MG PO DAILY, TAB 10/16/24 B-Complex W/ C & Folic Acid (Karoline-Jose Elias Rx) Tab, 1 OR, TAB 10/16/24 Ergocalciferol (Vitamin D (Ergocalciferol) 50,000 Unit Cap, 06893 UNIT PO QWEEKLY, CAP 10/16/24 Sacubitril-Valsartan (Entresto 24-26 mg) 1 Tab Tab, 1 TAB PO BID, TAB 10/16/24 Current Medications Current Medications Medications (Trade) Dose Ordered Sig/Joshua Route PRN Reason Start Time Stop Time Status Last Admin Diagnostic Test (Pha) (Accu-Chek Comfort Curve T) 1 strip Q6HR 10/15/24 18:00 10/16/24 12:00 Insulin Human Regular (InsuLIN R) Q6HR SC 10/15/24 18:00 10/16/24 12:00 Carvedilol (Coreg Tablet) 6.25 mg Q12HR PO 10/15/24 22:00 10/16/24 11:14 DC 10/16/24 11:00 Cefepime HCl 50 ml @ 12.5 mls/hr DAILY IV 10/16/24 10:00 10/16/24 14:55 Vancomycin HCl 0 ml @ 0 mls/hr UD IV 10/16/24 09:45 Vancomycin HCl 250 ml @ 250 mls/hr Q1H IV 10/16/24 10:45 10/16/24 12:44 DC 10/16/24 12:45 Heparin Sodium (Porcine) 5,000 units Q12HR SC 10/16/24 22:00 Carvedilol (Coreg Tablet) 12.5 mg Q12HR PO 10/16/24 22:00 Vital Signs Vital Signs Date Time Temp Pulse Resp B/P (MAP) Pulse Ox O2 Delivery O2 Flow Rate FiO2 10/16/24 12:30 98.1 84 18 129/71 (90) 95 98.1 10/16/24 08:00 Room Air* 0 21 Physical Exam DERMATOLOGIC EXAM: - Skin is dry and cool to the touch dry bilaterally. - Nails 1-5 of the bilateral foot are thickened, discolored, dystrophic, and tender to palpate with subungual debris - Hair loss noted to bilateral feet Wound #1: Location: Right sub 2nd Measurements: Length 1 cm x width 1 cm x depth 1 cm. Wound margins: Hyperkeratotic. Wound base: Full thickness. General Appearance: Healthy and bleeding. Probes to Bone: No Purulent drainage: No Serous drainage: No Erythema: Absent VASCULAR EXAM: - DP and PT pulses are palpable bilaterally. - CAGE UNLOADER is brisk to all digits. - Feet are cool to touch compared to lower legs bilaterally. NEUROLOGIC EXAM: - Normal light touch sensation to the superficial peroneal, deep peroneal, sural, saphenous, and tibial nerve branches. - Protective sensation is diminished as tested with a 5.07 10g [place] bilaterally. MUSCULOSKELETAL EXAM: - No gross deformities - Muscle strength is 5/5 and active motion is pain-free and symmetrical bilaterally - No pain or crepitation with passive range of motion bilaterally to all major pedal joints Labs/Diagnostic Data Labs Test 10/16/24 11:45 10/16/24 05:14 10/15/24 08:39 Range/Units POC Glucose 210 H 70-106 mg/dl White Blood Count 11.0 #H 4.4-10.8 10^3/uL Red Blood Count 3.18 L 4.5-5.90 10^6/uL Hemoglobin 10.2 L 13.5-17.5 g/dL Hematocrit 29.7 #L 41.0-53.0 % Mean Corpuscular Volume 93.3 80.0-100.0 fL Mean Corpuscular Hemoglobin 32.1 H 28.0-32.0 pg Mean Corpuscular Hemoglobin Concent 34.4 32.0-36.0 g/dL Red Cell Distribution Width 15.1 H 11.8-14.3 % Platelet Count 210 140-450 10^3/uL Mean Platelet Volume 9.0 6.9-10.8 fL Neutrophils (%) (Auto) 81.6 H 37.0-80.0 % Lymphocytes (%) (Auto) 8.2 L 10.0-50.0 % Monocytes (%) (Auto) 7.8 0.0-12.0 % Eosinophils (%) (Auto) 1.8 0.0-7.0 % Basophils (%) (Auto) 0.6 0.0-2.0 % Neutrophils # (Auto) 8.9 H 1.6-8.6 10 ^3/uL Lymphocytes # (Auto) 0.9 0.4-5.4 10 ^3/uL Monocytes # (Auto) 0.9 0-1.3 10 ^3/uL Eosinophils # (Auto) 0.2 0-0.8 10 ^3/uL Basophils # (Auto) 0.1 0-0.2 10 ^3/uL Nucleated Red Blood Cells 0.0 % Sodium Level 135 L 136-145 mmol/L Potassium Level 4.4 3.5-5.1 mmol/L Chloride Level 92 L 98-107 mmol/L Carbon Dioxide Level 31 20-31 mmol/L Anion Gap 12 5-15 Blood Urea Nitrogen 46 #H 9-23 mg/dL Creatinine 6.27 H 0.700-1.30 mg/dL Glomerular Filtration Rate Calc 10 >90 mL/min BUN/Creatinine Ratio 7.3 L 10.0-20.0 Serum Glucose 201 H 74-106 mg/dL Calcium Level 9.3 8.7-10.4 mg/dL Total Bilirubin 0.7 0.2-1.0 mg/dL Aspartate Amino Transferase (AST) 14 13-40 U/L Alanine Aminotransferase (ALT) 15 7-40 U/L Alkaline Phosphatase 165 H 46-116 U/L Total Protein 7.0 5.7-8.2 g/dL Albumin 3.8 3.2-4.8 g/dL Lipase 44 12-53 U/L Microbiology Date/Time Source Procedure Growth Status 10/16/24 06:30 Nose MRSA Screen - Final Complete Problems(with codes): (1) Acute abdominal pain (2) Non-specific colitis (3) Chronic kidney disease on chronic dialysis (4) Diabetic foot ulcer Plan/Recommendation ASSESSMENT: Patient is a 49-year-old male seen on the floor for diabetic foot ulcer PLAN: - The patients chart was reviewed, clinical findings were discussed with the patient, the etiologies of the conditions were discussed in detail, and a treatment plan was agreed to at this time, with both oral and written instructions provided. - discussed with the patient that the wound does not a. The or concern for a deeper infection - discussed with the patient that I recommend he continues outpatient for wound care - recommend that he follows up with me for foot care as well to can diabetic shoes to help offload wound - a surgical intervention recommended at this point - dressed with Betadine gauze Kerlix - can change that every other day All questions were answered and concerns addressed to the patient's satisfaction. The patient was given the phone number to the clinic and was told how to make contact with the clinic should any concerns or questions arise. Patient understands that if any questions or concerns arise prior to the next appointment, we should be contacted immediately. FOLLOW-UP: Patient will follow up with me in 1 week for continued wound care Plan discussed with: Patient Date of Service: Oct 16, 2024 Billing Provider: DAISY SHAW DPM Common Visit Codes: [id number] INP/OBS CARE (MOD) DAISY SHAW DPM Oct 16, 2024 16:53
[2024-10-16 17:00] VITALS: BP 117/75; PULSE 76; RESP 18; TEMP 98.2; O2SAT 96
[2024-10-16 22:00] VITALS: BP 130/70; PULSE 79; RESP 18; TEMP 98.1; O2SAT 96
[2024-10-16] MEDS: CARVEDILOL 12.5 MG TAB PO SCH (22:02)
[2024-10-16] MEDS: ATORVASTATIN 20 MG TAB PO SCH (22:02)
[2024-10-16] MEDS: HEPARIN SODIUM (PORCINE) 5000 UNITS/ML 1ML VIAL SC SCH (22:14)
[2024-10-16] MEDS: INSULIN LANTUS (GLARGINE) 1 /0.01ml (100units/ml) SC SCH (22:15)
[2024-10-17] VITALS (8 sets, daily range): BP systolic 100–144; BP diastolic 62–84; PULSE 51–81; RESP 16–20; TEMP 97.4–98.6; O2SAT 94–100
[2024-10-17] MEDS: DOCUSATE SOD 100 MG CAP PO PRN (00:53)
[2024-10-17 06:52] LABS: Basophils # (auto) 0.1 10 ^3/uL (0-0.2); Basophils % (auto) 0.9 % (0.0-2.0); Eosinophils # (auto) 0.3 10 ^3/uL (0-0.8); Eosinophils % (auto) 3.2 % (0.0-7.0); Hematocrit 27.4 % (41.0-53.0); Hemoglobin 9.1 g/dL (13.5-17.5); Lymphocytes # (auto) 1.1 10 ^3/uL (0.4-5.4); Lymphocytes % (auto) 13.4 % (10.0-50.0); Mean Corpuscular Hemoglobin 31.2 pg (28.0-32.0); Mean Corpuscular Hgb Conc. 33.4 g/dL (32.0-36.0); Mean Corpuscular Volume 93.6 fL (80.0-100.0); Monocytes # (auto) 0.9 10 ^3/uL (0-1.3); Monocytes % (auto) 10.9 % (0.0-12.0); Neutrophils # (auto) 5.8 10 ^3/uL (1.6-8.6); Neutrophils % (auto) 71.6 % (37.0-80.0); Platelet Count (auto) 195 10^3/uL (140-450); Red Blood Cells 2.92 10^6/uL (4.5-5.90); Red Cell Distribution Width 15.3 % (11.8-14.3); White Blood Cell 8.1 10^3/uL (4.4-10.8)
[2024-10-17 07:11] LABS: Alanine Aminotransferase 13 U/L (7-40); Albumin 3.6 g/dL (3.2-4.8); Anion Gap 8 (5-15); Aspartate Aminotransferase 14 U/L (13-40); BUN/Creatinine Ratio 7.5 (10.0-20.0); Calcium 8.7 mg/dL (8.7-10.4); Potassium 4.3 mmol/L (3.5-5.1)
[2024-10-17 07:12] LABS: Bilirubin, Total 0.6 mg/dL (0.2-1.0); Total Protein 6.5 g/dL (5.7-8.2)
[2024-10-17 07:13] LABS: Alkaline Phosphatase 170 U/L (46-116); Blood Urea Nitrogen 62 mg/dL (9-23); Carbon Dioxide 32 mmol/L (20-31); Chloride 93 mmol/L (98-107); Glucose 180 mg/dL (74-106); Sodium 133 mmol/L (136-145)
[2024-10-17] MEDS: SODIUM CHL 0.9% 1000 ML BAG XX ONE (10:03)
[2024-10-17] MEDS: ASPirin 81 mg TAB PO SCH (10:08)
--- NOTE | 2024-10-17 15:57 | DVHPN2 ---
Progress Note - Dictate Date Seen: Oct 17, 2024 Medical Necessity Reason Pt with a Central, PICC or Fol: No Subjective Underwent dialysis today with ultrafiltration of 3 L. Scheduled for cholecystectomy tomorrow. vital signs Vital Sign Date Time Temp Pulse Resp B/P (MAP) Pulse Ox O2 Delivery O2 Flow Rate FiO2 10/17/24 12:15 97.4 51 18 113/62 (79) 94 97.4 10/17/24 08:00 Room Air* 0 21 Total Intake and Output 10/16/24 10/16/24 10/17/24 15:00 23:00 07:00 Intake Total 500 ml 876 ml 400 ml Output Total 0 ml Balance 500 ml 876 ml 400 ml medications Current Medications Medications Dose Ordered Sig/Joshua Route Start Time Stop Time Status Last Admin Dose Admin Ondansetron HCl 4 mg Q4HP PRN IV 10/15/24 12:15 Docusate Sodium 100 mg BIDPRN PRN PO 10/15/24 12:15 10/17/24 00:53 100 MG Morphine Sulfate 2 mg Q4HPRN PRN IV 10/15/24 12:15 Nitroglycerin 0.4 mg Q5MINP PRN SL 10/15/24 12:15 Diagnostic Test (Pha) 1 strip Q6HR 10/15/24 18:00 10/17/24 14:40 1 STRIP Insulin Human Regular Q6HR SC 10/15/24 18:00 10/17/24 06:43 3 UNITS Dextrose 50 ml UD PRN IV 10/15/24 12:15 Metronidazole 100 ml @ 100 mls/hr Q8HR IV 10/15/24 14:00 10/17/24 14:40 100 MLS/HR Cefepime HCl 50 ml @ 12.5 mls/hr DAILY IV 10/16/24 10:00 10/16/24 14:55 12.5 MLS/HR Vancomycin HCl 0 ml @ 0 mls/hr UD IV 10/16/24 09:45 Heparin Sodium (Porcine) 5,000 units Q12HR SC 10/16/24 22:00 10/17/24 10:18 5,000 UNITS Carvedilol 12.5 mg Q12HR PO 10/16/24 22:00 10/17/24 10:07 12.5 MG Insulin Glargine 15 units HS SC 10/16/24 22:00 12/11/24 22:15 15 UNITS Aspirin 81 mg DAILY PO 10/17/24 10:00 10/17/24 10:08 81 MG Atorvastatin Calcium 40 mg HS PO 10/16/24 22:00 10/16/24 22:02 40 MG objective Awake alert oriented x3 HEENT: Normocephalic, no JVD Lungs: Bilateral good air entry CVS: S1, S2 regular rate rhythm Abdomen: Soft. 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 For cholecystectomy tomorrow. Dietary Evaluation Review Comments: 1) Advance pt diet when medically feasible to a Cardiac/CCHO 60g/Renal Standard diet 2) Continue current plan of care Expected Outcomes/Goals: 1) Pt diet to advance 2) F/U in 2-3 days Plan discussed with: Patient ROSSANA COOL MD Oct 17, 2024 15:57
[2024-10-17 16:16] LABS: Hematocrit 30.7 % (41.0-53.0); Hemoglobin 10.3 g/dL (13.5-17.5)
--- NOTE | 2024-10-17 18:28 | DVHPN2 ---
Progress Note Date Seen: Oct 17, 2024 Medical Necessity Reason Pt with a Central, PICC or Fol: No Objective vital signs Vital Sign Date Time Temp Pulse Resp B/P (MAP) Pulse Ox O2 Delivery O2 Flow Rate FiO2 10/17/24 16:00 98.3 78 16 144/84 (104) 98 98.3 10/17/24 08:00 Room Air* 0 21 Total Intake and Output 10/16/24 10/16/24 10/17/24 15:00 23:00 07:00 Intake Total 500 ml 876 ml 400 ml Output Total 0 ml Balance 500 ml 876 ml 400 ml medications Current Medications Medications Dose Ordered Sig/Joshua Route Start Time Stop Time Status Last Admin Dose Admin Ondansetron HCl 4 mg Q4HP PRN IV 10/15/24 12:15 Docusate Sodium 100 mg BIDPRN PRN PO 10/15/24 12:15 10/17/24 00:53 100 MG Morphine Sulfate 2 mg Q4HPRN PRN IV 10/15/24 12:15 Nitroglycerin 0.4 mg Q5MINP PRN SL 10/15/24 12:15 Diagnostic Test (Pha) 1 strip Q6HR 10/15/24 18:00 10/17/24 14:40 1 STRIP Insulin Human Regular Q6HR SC 10/15/24 18:00 10/17/24 06:43 3 UNITS Dextrose 50 ml UD PRN IV 10/15/24 12:15 Metronidazole 100 ml @ 100 mls/hr Q8HR IV 10/15/24 14:00 10/17/24 14:40 100 MLS/HR Cefepime HCl 50 ml @ 12.5 mls/hr DAILY IV 10/16/24 10:00 10/16/24 14:55 12.5 MLS/HR Vancomycin HCl 0 ml @ 0 mls/hr UD IV 10/16/24 09:45 Heparin Sodium (Porcine) 5,000 units Q12HR SC 10/16/24 22:00 10/17/24 10:18 5,000 UNITS Carvedilol 12.5 mg Q12HR PO 10/16/24 22:00 10/17/24 10:07 12.5 MG Insulin Glargine 15 units HS SC 10/16/24 22:00 10/16/24 22:15 15 UNITS Aspirin 81 mg DAILY PO 10/17/24 10:00 10/17/24 10:08 81 MG Atorvastatin Calcium 40 mg HS PO 10/16/24 22:00 10/16/24 22:02 40 MG laboratory and microbiology Laboratory Tests 10/17/24 15:57 10/17/24 05:54 Test 10/17/24 05:54 Range/Units Serum Glucose 180 H 74-106 mg/dL Microbiology Date/Time Source Procedure Growth Status 10/16/24 09:30 Foot Right Gram Stain - Final Resulted 10/16/24 09:30 Foot Right Wound Culture - Preliminary Resulted Problem List/Assessment/Plan Problem List/Assessment/Plan AFEBRILE VSS ABD SOFT LESS TENDER WBC DOWN LFT ALKP ELEVATED MRCP NO CBD STONE ALLOW CLEAR LIQUIDS PIEDAD CARDIOLOGY EVAL NOTED CONSIDER LAP/OPEN CHOLECYSTECTOMY AM Plan discussed with: Patient Dietary Evaluation Review Comments: 1) Advance pt diet when medically feasible to a Cardiac/CCHO 60g/Renal Standard diet 2) Continue current plan of care Expected Outcomes/Goals: 1) Pt diet to advance 2) F/U in 2-3 days AUSTYN ROJAS MD Oct 17, 2024 18:28
--- NOTE | 2024-10-17 20:36 | DVHPNRES ---
Progress Note Date Seen: Oct 17, 2024 Resident Creating Document: JHPanfiloJKyleMARY ANN RESIDENT Medical Necessity Reason Pt with a Central, PICC or Fol: No Subjective Review of Systems Patient was seen and examined at the bedside. Alert and oriented x 4. Reports mild-moderate abdominal pain. Patient has a Calix's sign positive. Reports passing gas but has not passed a stool since Monday. Denies nausea, vomiting currently. Patient has a right foot plantar surface ulcer likely due to diabetes. Dialysis done today. Objective vital signs Vital Sign Date Time Temp Pulse Resp B/P (MAP) Pulse Ox O2 Delivery O2 Flow Rate FiO2 10/17/24 16:00 98.3 78 16 144/84 (104) 98 98.3 10/17/24 08:00 Room Air* 0 21 Total Intake and Output 10/16/24 10/16/24 10/17/24 15:00 23:00 07:00 Intake Total 500 ml 876 ml 400 ml Output Total 0 ml Balance 500 ml 876 ml 400 ml medications Current Medications Medications Dose Ordered Sig/Joshua Route Start Time Stop Time Status Last Admin Dose Admin Ondansetron HCl 4 mg Q4HP PRN IV 10/15/24 12:15 Docusate Sodium 100 mg BIDPRN PRN PO 10/15/24 12:15 10/17/24 00:53 100 MG Morphine Sulfate 2 mg Q4HPRN PRN IV 10/15/24 12:15 Nitroglycerin 0.4 mg Q5MINP PRN SL 10/15/24 12:15 Diagnostic Test (Pha) 1 strip Q6HR 10/15/24 18:00 10/17/24 18:55 1 STRIP Insulin Human Regular Q6HR SC 10/15/24 18:00 10/17/24 18:54 3 UNITS Dextrose 50 ml UD PRN IV 10/15/24 12:15 Metronidazole 100 ml @ 100 mls/hr Q8HR IV 10/15/24 14:00 10/17/24 14:40 100 MLS/HR Cefepime HCl 50 ml @ 12.5 mls/hr DAILY IV 10/16/24 10:00 10/16/24 14:55 12.5 MLS/HR Vancomycin HCl 0 ml @ 0 mls/hr UD IV 10/16/24 09:45 Heparin Sodium (Porcine) 5,000 units Q12HR SC 10/16/24 22:00 10/17/24 10:18 5,000 UNITS Carvedilol 12.5 mg Q12HR PO 10/16/24 22:00 10/17/24 10:07 12.5 MG Insulin Glargine 15 units HS SC 10/16/24 22:00 10/16/24 22:15 15 UNITS Aspirin 81 mg DAILY PO 10/17/24 10:00 10/17/24 10:08 81 MG Atorvastatin Calcium 40 mg HS PO 10/16/24 22:00 10/16/24 22:02 40 MG Examination Physical Examination Gen - no pallor, no icterus, no cyanosis, no clubbing, no LAD, 1+ edema. Skin - Patients skin is warm and dry. HEENT - normocephalic, atraumatic, dry mucous membranes. Neck - full ROM, no LAD, no JVD. Pulmonary - B/L equal breath sounds heard with bibasilar crackles, no wheezing. cardiovascular - normal S1,S2 heard. no murmurs heard. peripheral pulses normal radial 2+, pedal 2+. capillary refill normal <2 secs. GI - soft abdomen with tenderness to palpation in the right right upper quadrant and epigastrium. Calix signs positive. no hepatospleenomegaly. Bowel sounds hypoactive Neurological - Patient is A/O X 3 . Bilateral upper extremity strength 5/5, bilateral lower extremity strength 5/5, no facial droop, normal speech, no tremor, decreased touch sensation in both the feet Extremity: right plantar surface ulcer 1x1cm with 1 cm depth. laboratory and microbiology Laboratory Tests 10/17/24 15:57 10/17/24 05:54 Test 10/17/24 05:54 Range/Units Serum Glucose 180 H 74-106 mg/dL Microbiology Date/Time Source Procedure Growth Status 10/16/24 09:30 Foot Right Gram Stain - Final Resulted 10/16/24 09:30 Foot Right Wound Culture - Preliminary Resulted Problem List/Assessment/Plan Problem List/Assessment/Plan Assessment and plan # acute abdominal pain # acute intractable nausea and vomiting # acute cholecystitis - CT abdomen pelvis shows distended gallbladder with small calcified gallstones day of the bed and neck and moderate inflammatory stranding - RUQ ultrasound shows gallstones with gallbladder wall thickening - elevated ALP - MRCP shows no no biliary ductal dilation, no evidence of choledocholithiasis - surgery consulted - patient was on IV metronidazole and cefepime - Zofran p.r.n. for nausea, vomiting - on clear liquid diet - Surgery tomorrow on 10/18/2024, patient NPO after midnight. # diabetic foot ulcer - Gram stain and culture pending - foot x-ray shows soft tissue swelling and no radiographic evidence osteomyelitis - patient is started on vancomycin and cefepime IV - podiatry consulted # leukocytosis with left shift - likely due to acute cholecystitis vs foot ulcer -on IV antibiotics # end-stage renal disease on dialysis - on dialysis Monday - dialysis done today. # coronary artery disease status post CABG # ischemic cardiomyopathy # heart failure with reduced ejection fraction - echo shows severely dilated left ventricle, LVEF 35%, grade 2 diastolic dysfunction Mild to moderately elevated RVSP at 40 mmHg - patient on carvedilol - with the medications to be started as tolerated. # uncontrolled type 2 diabetes mellitus with hyperglycemia - insulin Lantus 15 units HS - mild insulin sliding scale - goal blood glucose level 140-180 mg/dL Goals of care discussed with the patient for over 33 minutes. Full code Plan discussed with Dr. Kaiser Plan discussed with: Patient My Orders My Orders Orders - MARY ANN GALICIA Procedure Category Date Status Time Aspirin Tablet PHA 10/17/24 In Process 10:00 Atorvastatin (Lipitor) PHA 10/16/24 In Process 22:00 Renal Function Test LAB 10/18/24 Verified 04:00 Vancomycin,Random LAB 10/18/24 Verified 04:00 Stool Occult Blood LAB 10/17/24 Logged 09:58 Haptoglobin LAB 10/17/24 In Process 13:00 Dietary Evaluation Review Comments: 1) Advance pt diet when medically feasible to a Cardiac/[facility]HO 60g/Renal Standard diet 2) Continue current plan of care Expected Outcomes/Goals: 1) Pt diet to advance 2) F/U in 2-3 days Date of Service: Oct 17, 2024 Billing Provider: GHAZALA HACKETT MD Common Visit Codes: [id number] INP/OBS CARE(HIGH) MARY ANN GALICIA RESIDENT Oct 17, 2024 20:36 GHAZALA HACKETT MD Oct 21, 2024 09:24
[2024-10-17] MEDS: EPOETIN ALFA-EPBX 4,000 UNIT/ML VIAL SC ONE (22:04)
[2024-10-18] VITALS (31 sets, daily range): BP systolic 92–166; BP diastolic 50–86; PULSE 61–67; RESP 18–22; TEMP 96.3–98.9; O2SAT 96–100
[2024-10-18] MEDS: KETOROLAC TROMETH 30 MG/ML 1ML VIAL IV ONE (01:33)
[2024-10-18 06:16] LABS: Basophils # (auto) 0.1 10 ^3/uL (0-0.2); Basophils % (auto) 0.9 % (0.0-2.0); Eosinophils # (auto) 0.3 10 ^3/uL (0-0.8); Eosinophils % (auto) 3.3 % (0.0-7.0); Hematocrit 28.2 % (41.0-53.0); Hemoglobin 9.4 g/dL (13.5-17.5); Lymphocytes % (auto) 12.2 % (10.0-50.0); Mean Corpuscular Hemoglobin 31.1 pg (28.0-32.0); Mean Corpuscular Hgb Conc. 33.3 g/dL (32.0-36.0); Mean Corpuscular Volume 93.3 fL (80.0-100.0); Monocytes # (auto) 0.8 10 ^3/uL (0-1.3); Neutrophils # (auto) 5.8 10 ^3/uL (1.6-8.6); Neutrophils % (auto) 73.6 % (37.0-80.0); Platelet Count (auto) 216 10^3/uL (140-450); Red Blood Cells 3.03 10^6/uL (4.5-5.90); Red Cell Distribution Width 15.1 % (11.8-14.3); White Blood Cell 7.9 10^3/uL (4.4-10.8)
[2024-10-18 06:24] LABS: Potassium 3.8 mmol/L (3.5-5.1); Sodium 137 mmol/L (136-145)
[2024-10-18 06:25] LABS: Anion Gap 11 (5-15); Calcium 9.1 mg/dL (8.7-10.4); Carbon Dioxide 30 mmol/L (20-31)
[2024-10-18 06:30] LABS: BUN/Creatinine Ratio 6.4 (10.0-20.0); GFR African American 12 mL/min; GFR Non-African American 10 mL/min
[2024-10-18 06:32] LABS: Albumin 3.6 g/dL (3.2-4.8)
[2024-10-18 06:33] LABS: Phosphorus 4.8 mg/dL (2.4-5.1)
[2024-10-18 06:34] LABS: Blood Urea Nitrogen 40 mg/dL (9-23); Chloride 96 mmol/L (98-107); Glucose 119 mg/dL (74-106)
[2024-10-18 08:39] LABS: INR 1.16 (0.9-1.15); Partial Thromboplastin Time 30.1 SEC (24.5-34.5); Prothrombin Time 12.2 sec (9.3-11.8)
[2024-10-18] MEDS: VANCOMYCIN 1GM/250ML KIT 250 ML IV ONE (11:30)
[2024-10-18] MEDS: ceFAZolin 2 GM/D5W100ml 100 ML IV ONE (12:15)
[2024-10-18] MEDS ORDERED: HYDROmorphone HCL 2 MG/ML VL/or syr ONE (12:20)
[2024-10-18] MEDS ORDERED: fentaNYL CITRATE 100 MCG/2 ML VL ONE (12:20)
[2024-10-18] MEDS ORDERED: MIDAZOLAM HCL 2MG/2ML 2ml VIAL (1mg/ml) ONE (12:20)
[2024-10-18] MEDS ORDERED: PHENYLEPHRINE HCL 10 MG/ML VL ONE (12:22)
[2024-10-18] MEDS ORDERED: ROCURONIUM 10MG/ML 10ML VIAL IV ONE (12:22)
[2024-10-18] MEDS ORDERED: DexAMETHasone SOD PHOS 10MG/1ML VIAL INJ ONE (12:22)
[2024-10-18] MEDS ORDERED: GLYCOPYRROLATE 0.2 MG/ML 1ML VIAL ONE (12:22)
[2024-10-18] MEDS ORDERED: ETOMIDATE (2MG/ML) 20ML VIAL IV ONE (12:22)
[2024-10-18] MEDS ORDERED: LIDOCAINE 2% (LOCAL ANESTH.) PF 5ml SDV ONE (12:22)
[2024-10-18] MEDS: LIDOCAINE W/ EPINEPHRINE 1% 20ML VIAL ONE (12:35)
[2024-10-18] MEDS ORDERED: SUGAMMADEX 200mg/2ml Vial (100MG/ML) IV ONE (13:38)
[2024-10-18] MEDS: BUPIVACAINE 0.25% INJ 50ML VIAL ONE (14:12)
--- NOTE | 2024-10-18 15:31 | DVHOP2 ---
Operative Report [id number] AC CHOLECYSTITIS INTRAABD ABSCESS DENSE ADHESIONS LAP LYSIS OF ADHESIONS, DRAINAGE OF INTRAABD ABSCESS LAP CHOLECYSTOSTOMY, LAP CHOLECYSTECTOMY EBL 50 CC ONE DRAIN CODING EVENT NOTED DURING RECOVERY CONDITION CRITICAL PT TO BE TRANSFERRED TO ICU ANESTHESIA MANAGEMENT OF POSSIBLE CARDIAC EVENT ONGOING AUSTYN ROJAS MD Oct 18, 2024 15:31
[2024-10-18] MEDS: ACCU-CHEK COMFORT CURVE STRIP VI ONE (15:45)
[2024-10-18] MEDS: ONDANSETRON HCL 4 MG/2 ML VIAL IV ONE (15:45)
[2024-10-18] MEDS: fentaNYL CITRATE 100 MCG/2 ML VL IM ONE (15:45)
[2024-10-18] MEDS ORDERED: MIDAZOLAM HCL 2MG/2ML 2ml VIAL (1mg/ml) IV PRN (15:45)
[2024-10-18] MEDS: MIDAZOLAM HCL 2MG/2ML 2ml VIAL (1mg/ml) IM ONE (15:45)
[2024-10-18] MEDS: fentaNYL CITRATE 100 MCG/2 ML VL ONE (15:45)
[2024-10-18] MEDS ORDERED: fentaNYL CITRATE 100 MCG/2 ML VL IV PRN (15:45)
[2024-10-18] MEDS ORDERED: fentaNYL Drip 2500mCg/250mlNS 250 ML IV SCH (15:45)
[2024-10-18] MEDS ORDERED: HYDROmorphone HCL 2 MG/ML VL/or syr IV PRN (15:45)
[2024-10-18] MEDS ORDERED: MIDAZOLAM DRIP 50 mg/50mL 50 ML IV SCH (15:45)
[2024-10-18] MEDS: MIDAZOLAM HCL 2MG/2ML 2ml VIAL (1mg/ml) ONE (15:50)
[2024-10-18] MEDS: PANTOPRAZOLE 40 MG/10 ML VIAL INJ IV ONE (16:00)
[2024-10-18] MEDS: NOREPINEPHRINE 8 MG/250ML KIT 250 ML IV SCH (16:15)
--- NOTE | 2024-10-18 16:24 | DVHPN2 ---
Consult Progress Note Subjective Other Systems: Patient remains mechanically ventilated and chemically sedated Objective vital signs Vital Sign Date Time Temp Pulse Resp B/P (MAP) Pulse Ox O2 Delivery O2 Flow Rate FiO2 10/18/24 09:50 62 100/59 10/18/24 09:00 97.8 18 96 97.8 10/17/24 20:00 Nasal Cannula* 2 28 Total Intake and Output 10/17/24 10/17/24 10/18/24 15:00 23:00 07:00 Intake Total 100 ml 550 ml 500 ml Output Total 300 ml 0 ml Balance 100 ml 250 ml 500 ml medications Current Medications Medications Dose Ordered Sig/Joshua Route Start Time Stop Time Status Last Admin Dose Admin Docusate Sodium 100 mg BIDPRN PRN PO 10/15/24 12:15 10/17/24 00:53 100 MG Morphine Sulfate 2 mg Q4HPRN PRN IV 10/15/24 12:15 Nitroglycerin 0.4 mg Q5MINP PRN SL 10/15/24 12:15 Diagnostic Test (Pha) 1 strip Q6HR 10/15/24 18:00 10/18/24 00:00 1 STRIP Insulin Human Regular Q6HR SC 10/15/24 18:00 10/18/24 05:49 2 UNITS Dextrose 50 ml UD PRN IV 10/15/24 12:15 Metronidazole 100 ml @ 100 mls/hr Q8HR IV 10/15/24 14:00 10/18/24 05:34 100 MLS/HR Cefepime HCl 50 ml @ 12.5 mls/hr DAILY IV 10/16/24 10:00 10/18/24 09:49 12.5 MLS/HR Heparin Sodium (Porcine) 5,000 units Q12HR SC 10/16/24 22:00 10/17/24 10:18 5,000 UNITS Insulin Glargine 15 units HS SC 10/16/24 22:00 10/17/24 22:12 15 UNITS Midazolam HCl 1 mg Q10M PRN IV 10/18/24 15:45 10/18/24 16:26 Midazolam HCl 50 ml @ 1 mls/hr Q24H IV 10/18/24 15:45 Fentanyl Citrate 250 ml @ 2.5 mls/hr Q24H IV 10/18/24 15:45 Pantoprazole Sodium 40 mg DAILY IV 10/19/24 10:00 Midazolam HCl 50 ml @ 1 mls/hr Q24H IV 10/18/24 16:15 UNV Fentanyl Citrate 250 ml @ 2.5 mls/hr Q24H IV 10/18/24 16:15 UNV Norepinephrine Bitartrate 250 ml @ 3.75 mls/hr Q24H IV 10/18/24 16:15 UNV laboratory and microbiology Laboratory Tests 10/18/24 05:20 Test 10/18/24 05:20 Range/Units Serum Glucose 119 H 74-106 mg/dL Problem List/Assessment/Plan Problem List/Assessment/Plan Bradycardia with cardiac arrest S/P cardiopulmonary resuscitation with return of spontaneous circulation Acute cholecystitis s/p laparoscopic cholecystectomy Coronary artery disease status post triple-vessel CABG, 2021 Chronic compensated HFrEF Hx of PE on Eliquis therapy Hypertension Dyslipidemia ESRD on HD Insulin-dependent diabetes mellitus Obesity Plan/Recommendation (Dr. Han): Case reviewed and discussed with Dr. Han. Transthoracic echocardiogram reveals EF 35%. Today, the patient underwent a laparoscopic cholecystectomy. Postoperatively, the patient was noted to become bradycardic in which atropine was given followed by dose of epinephrine. Subsequently, the patient then lost pulse and CPR was initiated. Per OR staff, CPR continued for approximately 90 seconds before a pulse was regained. It was unclear if the patient went into any dysrhythmias right before pulses were lost given that the patient was only connected to a portable cardiac/vascular sonographer, unable to review rhythms. Cardiology has been reconsulted to come evaluate the patient. A twelve lead electrocardiogram was done and reveals normal sinus rhythm with right bundle branch block and borderline ST segment changes to lead AVF (reviewed by ). A repeat electrocardiogram was done which shows no significant changes. We will order serial troponin levels. Patient remains mechanically ventilated and chemically sedated. Blood pressure stable at this time without vasopressor therapy. Continue cardiac surveillance and notify Cardiology team immediately for any ECG changes. Consider GDMT for CHF once patient stable with optimal BP. Thank you for allowing us to care for this patient. Please call with any questions or concerns. Critical care time spent: 44 minutes This medical document was created using an electronic medical record system with voice recognition software and computerized dictation system. Although this document has been carefully reviewed, there might still be some phonetic and typographical errors. Occasional wrong-word or ``sound-alike substitutions may have occurred due to the inherent limitations of voice recognition software. These areas are purely typographical due to imperfections of the software programs and do not reflect any compromise in the patient's medical care. Please read the chart carefully and recognize, using context, where these substitutions have occurred. Plan discussed with: Other (FORKLIFT SUPERVISOR) Dietary Evaluation Review Comments: 1) Advance pt diet when medically feasible to a Cardiac/CCHO 60g/Renal Standard diet 2) Continue current plan of care Expected Outcomes/Goals: 1) Pt diet to advance 2) F/U in 2-3 days Date of Service: Oct 18, 2024 Billing Provider: RACHEL PALMER Common Visit Codes: [id number] CARE 30-74 MIN RACHEL PALMER Oct 18, 2024 16:24
--- NOTE | 2024-10-18 16:24 | DVH ---
CHEST RADIOGRAPH Indication: sob Technique: Single frontal view of the chest was obtained COMPARISON: XY CHEST PORTABLE on DOS: 10/15/24 FINDINGS: Lines and Tubes: Endotracheal tube in satisfactory position. Median sternotomy. Lungs: Multifocal airspace disease. Pleura: No effusion. No pneumothorax. Cardiomediastinal contours: Unremarkable Bones: Unremarkable IMPRESSION: Endotracheal tube in satisfactory position.
--- NOTE | 2024-10-18 16:27 | DVHOP ---
DATE OF SURGERY: 10/18/2024 PREOPERATIVE DIAGNOSES: Acute cholecystitis with a high risk patient, cardiac issues, respiratory issues, and end-stage renal disease. POSTOPERATIVE DIAGNOSES: Acute cholecystitis with a high risk patient, cardiac issues, respiratory issues, and end-stage renal disease. PROCEDURES: Laparoscopic cholecystectomy with lot of adhesions noted, lysis of adhesions along with drainage of intraabdominal abscess. SURGEON: Ryan Zimmerman MD MASTER PRINTER: None. ANESTHESIA: General. ESTIMATED BLOOD LOSS: Close to 50 mL. DRAINS: One drain was used. COMPLICATIONS: No complications were encountered. DESCRIPTION OF PROCEDURE: The patient was prepped and draped in the usual sterile fashion in the supine position and a supraumbilical incision was applied, was taken down to the fascia. The Veress needle was introduced and CO2 insufflation was started to a pressure of 15 mmHg. The needle was withdrawn, replaced with a 5 mm trocar and a telescope was introduced and the gallbladder was completely surrounded by omental tissue and extremely inflamed and with a thick wall and patchy gangrene noticed with intraabdominal abscess. A 12 mm port was applied close to the xiphisternum and two 5 mm ports were applied more laterally in subcostal line. With the patient in the head up and right lateral position, the gallbladder was released from the adhesions meticulously and it was decompressed as well to allow exposure. The exposure of the cystic duct area was tedious. It was finally done. The cystic duct and artery were separately dissected out and clipped proximally and distally using the Hem-o-Mary clips and divided in between making sure CBD was kept out of harm's at all times. The gallbladder was then detached from the liver bed using Harmonic dissection, placed in an EndoCatch bag, removed from the xiphisternal wound without any complication. Hemostasis was secured. Irrigation fluid was removed. The port sites were free from bleeding. SNoW coagulant was applied to the liver bed for hemostasis and a size 19 Eduard drainage tube was placed to drain the liver bed, bringing out from the lateral subcostal incision. After that, one port had been withdrawn, securing the drain with a silk suture. EndoClose suture was used for the fascial closure of the xiphisternal wound. All the ports were withdrawn after all the CO2 had been let out and the patient was placed in supine. The wounds were then brought together using 3-0 Monocryl suture in subcuticular fashion. Surgical glue was applied. The patient tolerated the procedure well and did have a cardiac event during his recovery process and that will be described by the anesthesia physician who supervised the ongoing care. MD ELLEN Castro/IZAIAH/CHATA TID: [id number] RECEIPT: [id number] cc: Carolina Kaiser MD
[2024-10-18] MEDS: fentaNYL Drip 2500mCg/250mlNS 250 ML IV SCH (16:37)
[2024-10-18] MEDS: MIDAZOLAM DRIP 50 mg/50mL 50 ML IV SCH (16:38)
[2024-10-18 16:47] LABS: Base Excess -2.3 mmol/L (-2.0-3.0)
--- NOTE | 2024-10-18 16:57 | DVHPN2 ---
Progress Note - Dictate Date Seen: Oct 18, 2024 Medical Necessity Reason Pt with a Central, PICC or Fol: No Subjective Underwent laparoscopic cholecystectomy. Events post surgery noted. Patient intubated and in ICU. vital signs Vital Sign Date Time Temp Pulse Resp B/P (MAP) Pulse Ox O2 Delivery O2 Flow Rate FiO2 10/18/24 16:38 128/64 10/18/24 15:31 97.4 66 17 100 97.4 10/18/24 07:30 Room Air* 0 21 Total Intake and Output 10/17/24 10/17/24 10/18/24 15:00 23:00 07:00 Intake Total 100 ml 550 ml 500 ml Output Total 300 ml 0 ml Balance 100 ml 250 ml 500 ml medications Current Medications Medications Dose Ordered Sig/Joshua Route Start Time Stop Time Status Last Admin Dose Admin Docusate Sodium 100 mg BIDPRN PRN PO 10/15/24 12:15 10/17/24 00:53 100 MG Morphine Sulfate 2 mg Q4HPRN PRN IV 10/15/24 12:15 Nitroglycerin 0.4 mg Q5MINP PRN SL 10/15/24 12:15 Diagnostic Test (Pha) 1 strip Q6HR 10/15/24 18:00 10/18/24 00:00 1 STRIP Insulin Human Regular Q6HR SC 10/15/24 18:00 10/18/24 05:49 2 UNITS Dextrose 50 ml UD PRN IV 10/15/24 12:15 Metronidazole 100 ml @ 100 mls/hr Q8HR IV 10/15/24 14:00 10/18/24 05:34 100 MLS/HR Cefepime HCl 50 ml @ 12.5 mls/hr DAILY IV 10/16/24 10:00 10/18/24 09:49 12.5 MLS/HR Heparin Sodium (Porcine) 5,000 units Q12HR SC 10/16/24 22:00 10/17/24 10:18 5,000 UNITS Insulin Glargine 15 units HS SC 10/16/24 22:00 10/17/24 22:12 15 UNITS Pantoprazole Sodium 40 mg DAILY IV 10/19/24 10:00 Midazolam HCl 50 ml @ 1 mls/hr Q24H IV 10/18/24 16:15 10/18/24 16:38 1 MLS/HR Fentanyl Citrate 250 ml @ 2.5 mls/hr Q24H IV 10/18/24 16:15 10/18/24 16:37 2.5 MLS/HR Norepinephrine Bitartrate 250 ml @ 3.75 mls/hr Q24H IV 10/18/24 16:15 objective Intubated HEENT: Normocephalic, no JVD Lungs: Bilateral good air entry CVS: S1, S2 regular rate rhythm Abdomen: Status post surgery 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 Dietary Evaluation Review Comments: 1) Advance pt diet when medically feasible to a Cardiac/CCHO 60g/Renal Standard diet 2) Continue current plan of care Expected Outcomes/Goals: 1) Pt diet to advance 2) F/U in 2-3 days Plan discussed with: ROSSANA Kaplan MD Oct 18, 2024 16:57
--- NOTE | 2024-10-18 18:54 | DVHINCON2 ---
Date of service: Oct 18, [address] Green Reason for Consultation Ventilator management, central line placement History of Present Illness This is a 49-year-old man history of end-stage renal disease, CHF, CAD status post CABG, diabetes mellitus type 2, cholelithiasis, ESRD on hemodialysis, who was undergoing a laparoscopic cholecystectomy with many adhesions noted, lysis of adhesions along with drainage of intra-abdominal abscess. Patient had a cardiac arrest in the PACU. [place] was obtained. He was intubated and placed on mechanical ventilator. Pulmonary consultation is called due to acute hypoxic respiratory failure, mechanical ventilator management and venous access. Review of systems: Unable to obtain due to patient's critical condition. Past medical history: End-stage renal disease on hemodialysis, CHF, CAD status post CABG, diabetes mellitus type 2, cholelithiasis, Past surgical history: Status post laparoscopic cholecystectomy, CAD status post CABG Medications: Reviewed Allergies: Rivaroxaban Family history: No family history of premature CAD. No family history of lung disease. Social history: Nonsmoker. No alcohol or illicit drug use. Family History: Patient reports no known family medical history. Allergies: Coded Allergies: Rivaroxaban (Verified Allergy, Unknown, 10/15/24) Home Meds Reported Medications Insulin Lispro (Insulin Lispro Kwikpen) 100 Unit/Ml Inj, UNIT SC UD for 86 Days, #57 10/16/24 Apixaban Base (ELIQUIS) 5 Mg Tab, 1 TAB PO BID for 30 Days, #60 10/16/24 Ropinirole Hydrochloride (Ropinirole Hcl) 2 Mg Tab, 1 TAB PO HS for 90 Days, #90 10/16/24 Insulin NPH (Human) (Isophane) (Humulin N Kwikpen) 100 Unit/Ml Inj, 60 UNIT SC QPM for 89 Days, #147 INJ 10/16/24 Insulin NPH (Human) (Isophane) (Humulin N Kwikpen) 100 Unit/Ml Inj, 100 UNIT SC QAM for 147 Days, #89 10/16/24 Carvedilol (Carvedilol) 25 Mg Tab, 25 MG PO BID for 90 Days, #360 10/16/24 Semaglutide (Ozempic) 2 Mg/3 Ml Inj, 2 MG SC QWEEKLY for EVERY MONDAY, INJ 10/16/24 Hydralazine Hcl (Hydralazine Hcl) 50 Mg Tab, 1 TAB PO TID, #90 TAB 5 Refills 10/16/24 Isosorbide Mononitrate (Isosorbide Mononitrate Er) 30 Mg Tab, 30 MG PO BID for 30 Days, MG 10/16/24 Losartan Potassium (Losartan Potassium) 25 Mg Tab, 25 MG PO DAILY for 30 Days, MG 10/16/24 Sevelamer Carbonate (Renvela) 800 Mg Tab, 1 TAB PO TID, #270 TAB 3 Refills 10/16/24 Furosemide (Furosemide) 40 Mg Tab, 80 MG PO DAILY for TAKE ON NON-DIALYSIS DAY for 30 Days 10/16/24 Telmisartan (Micardis) 80 Mg Tab, 40 MG PO DAILY, TAB 10/16/24 B-Complex W/ C & Folic Acid (Karoline-Jose Elias Rx) Tab, 1 TAB PO DAILY for 30 Days, #30 10/16/24 Ergocalciferol (Vitamin D (Ergocalciferol) 50,000 Unit Cap, 36430 UNIT PO QWEEKLY, CAP 10/16/24 Sacubitril-Valsartan (Entresto 24-26 mg) 1 Tab Tab, 1 TAB PO BID, TAB 10/16/24 Current Medications Current Medications Medications (Trade) Dose Ordered Sig/Joshua Route PRN Reason Start Time Stop Time Status Last Admin Midazolam HCl (Versed Injection) 1 mg Q10M PRN IV ANXIETY 10/18/24 15:45 10/18/24 16:27 DC Fentanyl Citrate 25 mcg Q1HP PRN IV BREAKTHROUGH PAIN (7-10) 10/18/24 15:45 10/18/24 15:55 DC Hydromorphone HCl (Dilaudid Injection) 0.5 mg Q10M PRN IV SEVERE PAIN (7-10 PAIN SCALE) 10/18/24 15:45 10/18/24 16:13 DC Midazolam HCl 50 ml @ 1 mls/hr Q24H IV 10/18/24 15:45 10/18/24 16:27 DC Fentanyl Citrate 250 ml @ 2.5 mls/hr Q24H IV 10/18/24 15:45 10/18/24 16:27 DC Pantoprazole Sodium (Protonix) 40 mg DAILY IV 10/19/24 10:00 Midazolam HCl 50 ml @ 1 mls/hr Q24H IV 10/18/24 16:15 10/18/24 16:38 Fentanyl Citrate 250 ml @ 2.5 mls/hr Q24H IV 10/18/24 16:15 10/18/24 16:37 Norepinephrine Bitartrate 250 ml @ 3.75 mls/hr Q24H IV 10/18/24 16:15 Vital Signs Vital Signs Date Time Temp Pulse Resp B/P (MAP) Pulse Ox O2 Delivery O2 Flow Rate FiO2 10/18/24 18:19 66 22 146/77 (100) 100 40 10/18/24 15:31 97.4 97.4 10/18/24 07:30 Room Air* 0 Physical Exam Gen.: Patient lying in bed in medical ICU. Sedated, intubated on mechanical ventilator. Head: Normocephalic, atraumatic. Eyes: PERRLA. Ears: Normal external anatomy. Throat: Endotracheal tube and orogastric tube in place. Neck: Supple, trachea midline. Chest: Transmitted breath sounds bilaterally. Decreased air entry bilaterally. No wheezing. Bibasilar crackles. Cardio vascular: Positive S1, positive S2. Regular rate and rhythm. Abdomen: Positive bowel sounds in all 4 quadrants. Soft, nontender, nondistended. : Carroll in place. Normal external genitalia. Rectal: Deferred Skin: Warm, dry. Intact. Extremities: 2+ radial pulses bilaterally. No lower extremity edema. Neuro: Sedated. Labs/Diagnostic Data Labs Test 10/18/24 16:25 10/18/24 15:46 10/18/24 05:20 10/17/24 15:57 Range/Units Blood Gas Specimen Type Arterial Blood Gas Sample Site Arterial line Blood Gas Patient Temperature 37.0 Arterial Blood Date Drawn [id number] Arterial Blood pH 7.413 7.350-7.450 Arterial Blood Partial Pressure CO2 35.0 35.0-48.0 mmHg Arterial Blood Partial Pressure O2 244.9 H 83.0-108.0 mmHg Arterial Blood HCO3 21.8 21.0-28.0 mmol/L Arterial Blood Oxygen Saturation 98.3 H 94.0-98.0 % Arterial Blood Base Excess -2.3 L -2.0-3.0 mmol/L Arterial Blood Oxyhemoglobin 97.7 94.0-98.0 % Arterial Blood Carboxyhemoglobin 0.3 L 0.5-1.5 % Arterial Blood Methemoglobin 0.3 0.0-1.5 % Ángel Test N/a Blood Gas Total Hemoglobin 9.10 L 13.5-17.5 g/dL Blood Gas Set Respiration Rate 18.0 Blood Gas Modality Vent - ac FiO2 % 100.0 Blood Gas Tidal Volume 500.0 Blood Gas PEEP or CPAP 5.0 POC Glucose 123 H 70-106 mg/dl White Blood Count 7.9 4.4-10.8 10^3/uL Red Blood Count 3.03 L 4.5-5.90 10^6/uL Hemoglobin 9.4 L 13.5-17.5 g/dL Hematocrit 28.2 L 41.0-53.0 % Mean Corpuscular Volume 93.3 80.0-100.0 fL Mean Corpuscular Hemoglobin 31.1 28.0-32.0 pg Mean Corpuscular Hemoglobin Concent 33.3 32.0-36.0 g/dL Red Cell Distribution Width 15.1 H 11.8-14.3 % Platelet Count 216 140-450 10^3/uL Mean Platelet Volume 9.3 6.9-10.8 fL Neutrophils (%) (Auto) 73.6 37.0-80.0 % Lymphocytes (%) (Auto) 12.2 10.0-50.0 % Monocytes (%) (Auto) 10.0 0.0-12.0 % Eosinophils (%) (Auto) 3.3 0.0-7.0 % Basophils (%) (Auto) 0.9 0.0-2.0 % Neutrophils # (Auto) 5.8 1.6-8.6 10 ^3/uL Lymphocytes # (Auto) 1.0 0.4-5.4 10 ^3/uL Monocytes # (Auto) 0.8 0-1.3 10 ^3/uL Eosinophils # (Auto) 0.3 0-0.8 10 ^3/uL Basophils # (Auto) 0.1 0-0.2 10 ^3/uL Nucleated Red Blood Cells 0.0 % Prothrombin Time 12.2 H 9.3-11.8 sec Prothrombin Time INR 1.16 H 0.9-1.15 Activated Partial Thromboplast Time 30.1 24.5-34.5 SEC Sodium Level 137 136-145 mmol/L Potassium Level 3.8 3.5-5.1 mmol/L Chloride Level 96 L 98-107 mmol/L Carbon Dioxide Level 30 20-31 mmol/L Anion Gap 11 5-15 Blood Urea Nitrogen 40 #H 9-23 mg/dL Creatinine 6.24 H 0.700-1.30 mg/dL Glomerular Filtration Rate Calc 10 >90 mL/min Estimated GFR () 12 mL/min Estimated GFR (Non- 10 mL/min BUN/Creatinine Ratio 6.4 L 10.0-20.0 Serum Glucose 119 H 74-106 mg/dL Calcium Level 9.1 8.7-10.4 mg/dL Phosphorus Level 4.8 2.4-5.1 mg/dL Albumin 3.6 3.2-4.8 g/dL Random Vancomycin Level 18.1 H 5-10 ug/mL Reticulocyte Count (auto) 1.36 0.5-1.5 % Haptoglobin 379 H 29-370 mg/dL Lactate Dehydrogenase 168 120-246 U/L Test 10/17/24 05:54 10/15/24 08:39 Range/Units Hemoglobin A1c 9.2 H <5.7 % A1C Total Bilirubin 0.6 0.2-1.0 mg/dL Aspartate Amino Transferase (AST) 14 13-40 U/L Alanine Aminotransferase (ALT) 13 7-40 U/L Alkaline Phosphatase 170 H 46-116 U/L Total Protein 6.5 5.7-8.2 g/dL Lipase 44 12-53 U/L Microbiology Date/Time Source Procedure Growth Status 10/16/24 09:30 Foot Right Gram Stain - Final Resulted 10/16/24 09:30 Wound Culture - Preliminary Enterobacter cloacae Resulted Assessment Impression: Acute hypoxic respiratory failure On mechanical ventilator Status post cardiac arrest Return of spontaneous circulation Status post laparoscopic cholecystectomy with lysis of adhesions CAD status post CABG CHF Diabetes mellitus type 2 End-stage renal disease on hemodialysis Obesity with a BMI of 39 Plan: s/p intubation on mechanical ventilator CXR image and report reviewed. Devices in place. Multifocal airspace opacities. CAD status post CABG. No pleural effusion or pneumothorax. ABG reviewed. Compensated. On assist control with respiratory rate of 18, tidal volume 500, peep of five, FiO2 at 100%. Titrate FIO2 to keep O2 saturation above 92%. VAP bundle Daily ABG and CXR while intubated. Sedate for ventilatory synchrony Start pressors if necessary for hemodynamic support. On pressors for hemodynamic support. Titrate to keep MAP above 65 mmHg/SBP above 90 mmHg. Continue antibiotics. F/u cultures. Hemodialysis per nephrology Monitor renal function Monitor electrolytes. Supplement as necessary. Nephrology recommendations appreciated. Nutritional support. Accucheks, ISS. Monitor hemoglobin Right foot wound Care Accu-Cheks, insulin sliding scale. GI prophylaxis-Protonix DVT prophylaxis. SCDs Condition: Critical Prognosis: Poor given multiple comorbidities. Rest of plan per hospitalist and other consultants. A total of 36 minutes of critical care time was spent reviewing the patient record, examining the patient, making a diagnostic and therapeutic plan, discussing this plan with the medical personnel, following up on diagnostic studies and following the patient for clinical stability excluding any and all procedures. At least 50% of this time was spent in direct, iver-de-eass contac t. Thank you Dr. Green for allowing me to participate in this patient's care. Further recommendations will depend on patient's clinical course. Please do not hesitate to contact me if you have any questions or concerns. This medical document was created using an electronic medical record system with [employer] dictation system. Although this document has been carefully reviewed, there may still be some phonetic and typographical errors. These areas are purely typographical due to imperfections of the software programs, and do not reflect any compromise in the patient's medical care. Plan discussed with: Patient, Other (LAST Ibrara, RT, MD) FRANCHESKA PEREZ MD Oct 18, 2024 18:54
--- NOTE | 2024-10-18 18:55 | DVHNC2 ---
Procedure - ULTRASOUND-GUIDED RIGHT INTERNAL JUGULAR CENTRAL VENOUS CANNULATION CPT Codes: 58691 (ultrasound guidance) 58672 (insertion of non-tunneled centrally inserted central venous catheter) 85647 (CXR interpretation) Time out time: 18 Patient medications and allergies reviewed. The risks and benefits of the procedure and the sedation options and risk were discussed with the patient's healthcare proxy. All questions were answered and informed consent was obtaine d. Patient identification and proposed procedure were verified prior to the procedure by the physician, and a nurse in the patient's room. The heart rate, respiratory rate, oxygen saturations, blood pressure, adequacy of pulmonary ventilation, and response to care were monitored throughout the procedure. The physical status of the patient was reassessed after the procedure. DATE: 10/18/2024 PHYSICIAN: Francheska Sutherland Assistance: Dr Green PGY1, Dr Galindo, PGY3 PREOPERATIVE DIAGNOSIS: Requiring venous access for medication administration, blood draws POSTOPERATIVE DIAGNOSIS: Same PROCEDURE PERFORMED: Limited Ultrasound-guided Right internal jugular central line placement. ANESTHESIA: 2 mL of 1% lidocaine plain. ESTIMATED BLOOD LOSS: less than 5 mL. SPECIMENS: None. COMPLICATIONS: None. INDICATIONS FOR PROCEDURE: The patient is in need of large bore IV access for administration of fluids, including blood products and vasoactive drugs, possible transvenous cardiac pacing and CVP monitoring for hemodynamic in stability. DESCRIPTION OF PROCEDURE IN DETAIL: The patient was lying in the Trendelenburg position with head turned 30 degrees away from the insertion site. The skin was thoroughly sponged with chlorhexidine and allowed to dry. All persons involved were shielded with hair nets, face masks and sterile gowns. With sterile-gloved hands the right neck area was draped with the large disposable sterile field provided in the pre-manufactured kit. The skin and subcutaneous tissues superficial to the RIGHT internal jugular vein were anesthetized with 2 mL of 1% lidocaine. The RIGHT internal jugular vein was identified on ultrasound from the angle of the mandible down into the supraclavicular fossa using the linear ultrasound probe in the transverse orientation. The carotid artery was identified and avoided utilizing color-flow. The internal jugular vein was then placed in the center of the ultrasound field and compressed for patency. A movement artifact was identified as the needle was advanced through the skin and advanced toward the vessel. A real time hyperechoic signal revealed visualization of vascular needle entry into the lumen as blood was noted to flashback in the syringe. The needle was then held in place while the guide wire was advanced. The needle was then removed. Direct visualization of guide wire location within the vein was noted on ultrasound indicating proper placement and was document in the electronic medical record chart. A skin dilator was advanced over the guidewire and removed, and the triple-lumen catheter was then advanced over the guide wire into proper position. The guide wire was removed and discarded. The ports were aspirated which showed good blood return and then carefully flushed with normal saline. The catheter was stabilized and sutured to the skin with 2-0 silk at 4 anchor points. A sterile bio-patch and dressing was placed over the catheter, including the insertion site. The patient tolerated the procedure well. A chest x-ray was ordered for position confirmation. I reviewed the image immediately after it was taken at bedside. Post-procedure chest x-ray demonstrates the central line in the superior vena and no evidence of any pneumothorax. An image recording of the procedure accompanies the chart. FRANCHESKA SUTHERLAND MD Oct 18, 2024 18:55
--- NOTE | 2024-10-18 19:35 | DVHPNRES ---
Progress Note Date Seen: Oct 18, 2024 Resident Creating Document: [email or web address] WrightMARY RESIDENT Medical Necessity Reason Pt with a Central, PICC or Fol: No Subjective Review of Systems Patient was seen and examined at the bedside. Alert and oriented x 4. Reports mild abdominal pain in the morning before being taken for surgery. Patient has a Calix's sign positive. Reports passing gas but has not passed a stool since Monday. Denied nausea, vomiting. After surgery, lap. cholecystecomy, in the PACU when the patient was being extubated, he develped bradycardia, atropine was given followed by dose of epinephrine. Subsequently, the patient then lost pulse and CPR was initiated. CPR continued for approximately 90 seconds before a pulse was regained. Objective vital signs Vital Sign Date Time Temp Pulse Resp B/P (MAP) Pulse Ox O2 Delivery O2 Flow Rate FiO2 10/18/24 18:19 66 22 146/77 (100) 100 40 10/18/24 15:31 97.4 97.4 10/18/24 07:30 Room Air* 0 Total Intake and Output 10/17/24 10/17/24 10/18/24 15:00 23:00 07:00 Intake Total 100 ml 550 ml 500 ml Output Total 300 ml 0 ml Balance 100 ml 250 ml 500 ml medications Current Medications Medications Dose Ordered Sig/Joshua Route Start Time Stop Time Status Last Admin Dose Admin Docusate Sodium 100 mg BIDPRN PRN PO 10/15/24 12:15 10/17/24 00:53 100 MG Morphine Sulfate 2 mg Q4HPRN PRN IV 10/15/24 12:15 Nitroglycerin 0.4 mg Q5MINP PRN SL 10/15/24 12:15 Diagnostic Test (Pha) 1 strip Q6HR 10/15/24 18:00 10/18/24 19:17 1 STRIP Insulin Human Regular Q6HR SC 10/15/24 18:00 10/18/24 19:18 3 UNITS Dextrose 50 ml UD PRN IV 10/15/24 12:15 Metronidazole 100 ml @ 100 mls/hr Q8HR IV 10/15/24 14:00 10/18/24 05:34 100 MLS/HR Cefepime HCl 50 ml @ 12.5 mls/hr DAILY IV 10/16/24 10:00 10/18/24 09:49 12.5 MLS/HR Heparin Sodium (Porcine) 5,000 units Q12HR SC 10/16/24 22:00 10/17/24 10:18 5,000 UNITS Insulin Glargine 15 units HS SC 10/16/24 22:00 10/17/24 22:12 15 UNITS Pantoprazole Sodium 40 mg DAILY IV 10/19/24 10:00 Midazolam HCl 50 ml @ 1 mls/hr Q24H IV 10/18/24 16:15 10/18/24 16:38 1 MLS/HR Fentanyl Citrate 250 ml @ 2.5 mls/hr Q24H IV 10/18/24 16:15 10/18/24 16:37 2.5 MLS/HR Norepinephrine Bitartrate 250 ml @ 3.75 mls/hr Q24H IV 10/18/24 16:15 Examination Gen - no pallor, no icterus, no cyanosis, no clubbing, no LAD, 1+ edema. Skin - Patients skin is warm and dry. HEENT - normocephalic, atraumatic, dry mucous membranes. Neck - full ROM, no LAD, no JVD. Pulmonary - On ventilator with B/L equal breath sounds. cardiovascular - normal S1,S2 heard. no murmurs heard. peripheral pulses normal radial 2+, pedal 2+. capillary refill normal <2 secs. GI - soft abdomen s/p surgery. Bowel sounds hypoactive Neurological - Patient is sedated and is on mechanical ventilation Extremity: right plantar surface ulcer 1x1cm with 1 cm depth. laboratory and microbiology Laboratory Tests 10/18/24 05:20 Test 10/18/24 05:20 Range/Units Serum Glucose 119 H 74-106 mg/dL Microbiology Date/Time Source Procedure Growth Status 10/16/24 09:30 Foot Right Gram Stain - Final Resulted 10/16/24 09:30 Wound Culture - Preliminary Enterobacter cloacae Resulted Problem List/Assessment/Plan Problem List/Assessment/Plan Assessment and plan # S/p Cardiac arrest with ROSC # Acute hypoxic respiratory failure - on mechanical ventilation with RR 18, tidal volume 500ml, PEEP 8, FiO2 50% - on pressor support with norepinephrine - target MAP >65mmHg # acute abdominal pain # acute intractable nausea and vomiting # acute cholecystitis # S/p Lap cholecystectomy - CT abdomen pelvis shows distended gallbladder with small calcified gallstones day of the bed and neck and moderate inflammatory stranding - RUQ ultrasound shows gallstones with gallbladder wall thickening - elevated ALP - MRCP shows no no biliary ductal dilation, no evidence of choledocholithiasis - surgery consulted - patient was on IV metronidazole and cefepime - Zofran p.r.n. for nausea, vomiting - on clear liquid diet - Surgery done today # diabetic foot ulcer - Gram stain and culture pending - foot x-ray shows soft tissue swelling and no radiographic evidence osteomyelitis - wound culture shows growth of Enterobacter cloacae on cefepime IV - podiatry consulted # leukocytosis with left shift - likely due to acute cholecystitis vs foot ulcer -on IV antibiotics # end-stage renal disease on dialysis - on dialysis Monday - dialysis done today. # coronary artery disease status post CABG # ischemic cardiomyopathy # heart failure with reduced ejection fraction - echo shows severely dilated left ventricle, LVEF 35%, grade 2 diastolic dysfunction Mild to moderately elevated RVSP at 40 mmHg - patient on carvedilol - with the medications to be started as tolerated. # uncontrolled type 2 diabetes mellitus with hyperglycemia - insulin Lantus 15 units HS - mild insulin sliding scale - goal blood glucose level 140-180 mg/dL Care time 57 minutes. Plan discussed with patient's yasemin. Full code Plan discussed with Dr. Kaiser Plan discussed with: Spouse (Yasemin) My Orders My Orders Orders - MARY ANN GALICIA RESIDENT Procedure Category Date Status Time Complete Blood Count LAB 10/19/24 Verified 04:00 Creatinine LAB 10/19/24 Verified 04:00 Dietary Evaluation Review Comments: 1) Advance pt diet when medically feasible to a Cardiac/[facility]HO 60g/Renal Standard diet 2) Continue current plan of care Expected Outcomes/Goals: 1) Pt diet to advance 2) F/U in 2-3 days Date of Service: Oct 18, 2024 Billing Provider: GHAZALA HACKETT MD Common Visit Codes: [id number] INP/OBS CARE(HIGH) MARY ANN GALICIA RESIDENT Oct 18, 2024 19:35 GHAZALA HACKETT MD Oct 21, 2024 09:13
--- NOTE | 2024-10-18 19:42 | DVH ---
CHEST RADIOGRAPH Indication: Right IJ Central line placement, r/o Pneumothorax Technique: Single frontal view of the chest was obtained Comparison: XY CHEST PORTABLE on DOS: 10/18/24, XY CHEST PORTABLE on DOS: 10/15/24 FINDINGS: Lines and Tubes: Right IJ approach central venous catheter terminating over the superior cavoatrial j unction. Endotracheal tube is in satisfactory position. Lungs: Perihilar fullness with diffuse interstitial prominence. Bronchovascular crowding due to low lung volumes. Pleura: No effusion. No pneumothorax. Cardiomediastinal contours: Moderate cardiomegaly. Midline sternotomy wires and surgical clips are n oted consistent with prior history of CABG. Bones: No acute osseous abnormality. IMPRESSION: Right IJ approach central venous catheter is noted terminating over the superior cavoatrial junction . No pneumothorax . Endotracheal tube is in satisfactory position . Cardiomegaly with findings suggestive of congestive heart failure. Underlying infectious process can not be excluded.
[2024-10-18 19:48] LABS: Basophils # (auto) 0 10 ^3/uL (0-0.2); Basophils % (auto) 0.5 % (0.0-2.0); Eosinophils # (auto) 0 10 ^3/uL (0-0.8); Eosinophils % (auto) 0.3 % (0.0-7.0); Hematocrit 29.6 % (41.0-53.0); Hemoglobin 9.7 g/dL (13.5-17.5); Lymphocytes # (auto) 0.4 10 ^3/uL (0.4-5.4); Lymphocytes % (auto) 4.1 % (10.0-50.0); Mean Corpuscular Hemoglobin 30.9 pg (28.0-32.0); Mean Corpuscular Volume 93.8 fL (80.0-100.0); Monocytes # (auto) 0.5 10 ^3/uL (0-1.3); Monocytes % (auto) 5.5 % (0.0-12.0); Neutrophils # (auto) 8.1 10 ^3/uL (1.6-8.6); Neutrophils % (auto) 89.6 % (37.0-80.0); Platelet Count (auto) 220 10^3/uL (140-450); Red Blood Cells 3.15 10^6/uL (4.5-5.90); White Blood Cell 9.1 10^3/uL (4.4-10.8)
--- NOTE | 2024-10-18 19:53 | DVHNC2 ---
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 Indication: Hypotension Room prepared for procedure: Yes Investigation Specialist performed hand hygien: Yes Maximal sterile barrier precau: Mask/Eye shield, Sterile gown, Cap, Sterlie gloves, Large sterlie drape Skin Preparation: Chlorhexidine gluconate, Providine iodine Skin preparation completely dr: Yes Insertion site: Right, Internal jugular Central line catheter type: [id number] dialysis Number of lumens: 3 Central line exchanged over a: No Antiseptic ointment applied to: Yes Post Assessment: Chest X-Ray, No Pneumothorax Informed consent obtained: Yes Risks/benefits/alt described: Yes Notes The patient was positioned in a trendelenberg position. Sterile technique was used including hand washing and wearing of sterile gloves, gown, mask and patient was draped. The area was cleaned with betadine and draped in sterile fashion. Local anaesthetic Lidocaine 5% was administered for the skin and deeper tissues around the site. The central line was inserted in the right IJV. A small incision was made at the chosen insertion site to advance the dilator following which the triple lumen central venous catheter was advanced into the right IJV. Catheter was fixed to the skin with a suture. No complications were noted during the procedure. Chest X ray was done immediately after the procedure to confirm t he position of the Central venous catheter. Thank you Dr. Sutherland for supervising the procedure. Date of Service: Oct 18, 2024 Billing Provider: FRANCHESKA SUTHERLAND MD Common Visit Codes: PROCEDURE ONLY MARY ANN GALICIA RESIDENT Oct 18, 2024 19:53
[2024-10-18 20:05] LABS: Alanine Aminotransferase 25 U/L (7-40); Albumin 3.3 g/dL (3.2-4.8); Anion Gap 12 (5-15); Aspartate Aminotransferase 40 U/L (13-40); BUN/Creatinine Ratio 7.3 (10.0-20.0); Carbon Dioxide 25 mmol/L (20-31); Chloride 99 mmol/L (98-107); Potassium 4.6 mmol/L (3.5-5.1)
[2024-10-18 20:06] LABS: Bilirubin, Total 0.6 mg/dL (0.2-1.0); Total Protein 6.1 g/dL (5.7-8.2)
[2024-10-18 20:11] LABS: Alkaline Phosphatase 189 U/L (46-116); Blood Urea Nitrogen 53 mg/dL (9-23); Calcium 8.3 mg/dL (8.7-10.4); Glucose 176 mg/dL (74-106); Magnesium 2.8 mg/dL (1.6-2.6); Sodium 136 mmol/L (136-145)
[2024-10-19] VITALS (101 sets, daily range): BP systolic 98–182; BP diastolic 38–90; PULSE 61–82; RESP 9–28; TEMP 97.7–99; O2SAT 90–100
--- NOTE | 2024-10-19 05:45 | DVH ---
CHEST RADIOGRAPH Indication: sob Technique: Single frontal view of the chest was obtained Comparison: XY CHEST XRAY 1 VIEW on DOS: 10/18/24, XY CHEST PORTABLE on DOS: 10/18/24, XY CHEST NELDA BLE on DOS: 10/15/24 IMPRESSION: The cardiac silhouette is enlarged with median sternotomy wires and postsurgical change. Endotracheal tube and right IJ catheter appear unchanged in position. There is mild to moderate pulmonary vascula r congestion, similar to prior examination. No sizable effusion or pneumothorax.
[2024-10-19 06:23] LABS: Basophils # (auto) 0 10 ^3/uL (0-0.2); Basophils % (auto) 0.2 % (0.0-2.0); Eosinophils # (auto) 0 10 ^3/uL (0-0.8); Hematocrit 28.7 % (41.0-53.0); Hemoglobin 9.6 g/dL (13.5-17.5); Lymphocytes # (auto) 0.4 10 ^3/uL (0.4-5.4); Lymphocytes % (auto) 3.9 % (10.0-50.0); Mean Corpuscular Hemoglobin 31.1 pg (28.0-32.0); Mean Corpuscular Hgb Conc. 33.3 g/dL (32.0-36.0); Mean Corpuscular Volume 93.2 fL (80.0-100.0); Monocytes # (auto) 0.5 10 ^3/uL (0-1.3); Monocytes % (auto) 4.6 % (0.0-12.0); Neutrophils # (auto) 10.4 10 ^3/uL (1.6-8.6); Neutrophils % (auto) 91.3 % (37.0-80.0); Platelet Count (auto) 249 10^3/uL (140-450); Red Blood Cells 3.08 10^6/uL (4.5-5.90); White Blood Cell 11.4 10^3/uL (4.4-10.8)
[2024-10-19 06:42] LABS: Alanine Aminotransferase 15 U/L (7-40); Albumin 3.6 g/dL (3.2-4.8); Anion Gap 16 (5-15); Aspartate Aminotransferase 36 U/L (13-40); BUN/Creatinine Ratio 7.3 (10.0-20.0); Carbon Dioxide 23 mmol/L (20-31); Potassium 5.1 mmol/L (3.5-5.1)
[2024-10-19 06:43] LABS: Alkaline Phosphatase 168 U/L (46-116); Bilirubin, Total 0.4 mg/dL (0.2-1.0); Blood Urea Nitrogen 58 mg/dL (9-23); Chloride 97 mmol/L (98-107); Glucose 173 mg/dL (74-106); Magnesium 2.9 mg/dL (1.6-2.6); Sodium 136 mmol/L (136-145); Total Protein 6.8 g/dL (5.7-8.2)
[2024-10-19] MEDS: SODIUM CHL 0.9% 1000 ML BAG XX ONE (07:45)
--- NOTE | 2024-10-19 07:45 | DVHPN2 ---
Progress Note - Dictate Date Seen: Oct 19, 2024 Medical Necessity Reason Pt with a Central, PICC or Fol: No Subjective Intubated . On 40% FiO2. Responding to call vital signs Vital Sign Date Time Temp Pulse Resp B/P (MAP) Pulse Ox O2 Delivery O2 Flow Rate FiO2 10/19/24 06:45 98.6 67 19 136/68 (90) 96 209.5 10/19/24 06:32 40 10/19/24 05:38 Mechanical Ventilator+ 0 Total Intake and Output 10/18/24 10/18/24 10/19/24 15:00 23:00 07:00 Intake Total 0 ml 159.5 ml 184 ml Output Total 300 ml 60 ml Balance 0 ml -140.5 ml 124 ml medications Current Medications Medications Dose Ordered Sig/Joshua Route Start Time Stop Time Status Last Admin Dose Admin Docusate Sodium 100 mg BIDPRN PRN PO 10/15/24 12:15 10/17/24 00:53 100 MG Morphine Sulfate 2 mg Q4HPRN PRN IV 10/15/24 12:15 Nitroglycerin 0.4 mg Q5MINP PRN SL 10/15/24 12:15 Diagnostic Test (Pha) 1 strip Q6HR 10/15/24 18:00 10/19/24 05:36 1 STRIP Insulin Human Regular Q6HR SC 10/15/24 18:00 10/19/24 05:37 3 UNITS Dextrose 50 ml UD PRN IV 10/15/24 12:15 Metronidazole 100 ml @ 100 mls/hr Q8HR IV 10/15/24 14:00 10/19/24 05:34 100 MLS/HR Cefepime HCl 50 ml @ 12.5 mls/hr DAILY IV 10/16/24 10:00 10/18/24 09:49 12.5 MLS/HR Heparin Sodium (Porcine) 5,000 units Q12HR SC 10/16/24 22:00 10/18/24 21:17 5,000 UNITS Insulin Glargine 15 units HS SC 10/16/24 22:00 10/18/24 22:20 15 UNITS Pantoprazole Sodium 40 mg DAILY IV 10/19/24 10:00 Midazolam HCl 50 ml @ 1 mls/hr Q24H IV 10/18/24 16:15 10/19/24 05:46 2 MLS/HR Fentanyl Citrate 250 ml @ 2.5 mls/hr Q24H IV 10/18/24 16:15 10/18/24 16:37 2.5 MLS/HR Norepinephrine Bitartrate 250 ml @ 3.75 mls/hr Q24H IV 10/18/24 16:15 objective Intubated HEENT: Normocephalic, no JVD Lungs: Bilateral good air entry CVS: S1, S2 regular rate rhythm 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 Continue with IV antibiotics. Vent management as per Pulmonary. Dietary Evaluation Review Comments: 1) Advance pt diet when medically feasible to a Cardiac/[facility] 60g/Renal Standard diet 2) Continue current plan of care Expected Outcomes/Goals: 1) Pt diet to advance 2) F/U in 2-3 days Plan discussed with: ROSSANA Kaplan MD Oct 19, 2024 07:45
[2024-10-19] MEDS: PANTOPRAZOLE 40 MG/10 ML VIAL INJ IV SCH (09:49)
[2024-10-19 11:09] LABS: Base Excess -5.2 mmol/L (-2.0-3.0)
[2024-10-19] MEDS: MORPHINE SULFATE INJ 2 MG/ml SYRG IV PRN (13:19)
--- NOTE | 2024-10-19 13:21 | DVHPN2 ---
Progress Note Date Seen: Oct 19, 2024 Medical Necessity Reason Pt with a Central, PICC or Fol: No Objective vital signs Vital Sign Date Time Temp Pulse Resp B/P (MAP) Pulse Ox O2 Delivery O2 Flow Rate FiO2 10/19/24 12:00 18 97 Cool Aerosol 10 40 40 10/19/24 10:30 97.7 64 139/69 (92) 207.9 Total Intake and Output 10/18/24 10/18/24 10/19/24 15:00 23:00 07:00 Intake Total 0 ml 159.5 ml 196 ml Output Total 300 ml 60 ml Balance 0 ml -140.5 ml 136 ml medications Current Medications Medications Dose Ordered Sig/Joshua Route Start Time Stop Time Status Last Admin Dose Admin Docusate Sodium 100 mg BIDPRN PRN PO 10/15/24 12:15 10/17/24 00:53 100 MG Morphine Sulfate 2 mg Q4HPRN PRN IV 10/15/24 12:15 Nitroglycerin 0.4 mg Q5MINP PRN SL 10/15/24 12:15 Diagnostic Test (Pha) 1 strip Q6HR 10/15/24 18:00 10/19/24 12:00 1 STRIP Insulin Human Regular Q6HR SC 10/15/24 18:00 10/19/24 11:33 3 UNITS Dextrose 50 ml UD PRN IV 10/15/24 12:15 Metronidazole 100 ml @ 100 mls/hr Q8HR IV 10/15/24 14:00 10/19/24 05:34 100 MLS/HR Cefepime HCl 50 ml @ 12.5 mls/hr DAILY IV 10/16/24 10:00 10/19/24 09:49 12.5 MLS/HR Heparin Sodium (Porcine) 5,000 units Q12HR SC 10/16/24 22:00 10/19/24 09:49 5,000 UNITS Insulin Glargine 15 units HS SC 10/16/24 22:00 10/18/24 22:20 15 UNITS Pantoprazole Sodium 40 mg DAILY IV 10/19/24 10:00 10/19/24 09:49 40 MG Midazolam HCl 50 ml @ 1 mls/hr Q24H IV 10/18/24 16:15 10/19/24 05:46 2 MLS/HR Fentanyl Citrate 250 ml @ 2.5 mls/hr Q24H IV 10/18/24 16:15 10/18/24 16:37 2.5 MLS/HR Norepinephrine Bitartrate 250 ml @ 3.75 mls/hr Q24H IV 10/18/24 16:15 laboratory and microbiology Laboratory Tests 10/19/24 05:30 Test 10/19/24 05:30 Range/Units Serum Glucose 173 H 74-106 mg/dL Microbiology Date/Time Source Procedure Growth Status 10/16/24 09:30 Foot Right Gram Stain - Final Resulted 10/16/24 09:30 Wound Culture - Preliminary Enterobacter cloacae Resulted Problem List/Assessment/Plan Problem List/Assessment/Plan AFEBRILE VSS ABD SOFT LESS TENDER WBC DOWN LFT DOWN ALKP ELEVATED EXTUBATED WOUNDS HEALING OPERATIVE FINDINGS EXPLAINED NURSE AND FAMILY AT BEDSIDE DRAIN SEROSANGUINEOUS 40 CC CONTINUE CLOSE OBSERVATION SWALLOW EVAL Plan discussed with: Patient Dietary Evaluation Review Comments: 1) Advance pt diet when medically feasible to a Cardiac/[facility] 60g/Renal Standard diet 2) Continue current plan of care Expected Outcomes/Goals: 1) Pt diet to advance 2) F/U in 2-3 days AUSTYN ROJAS MD Oct 19, 2024 13:21
--- NOTE | 2024-10-19 13:45 | DVHPN2 ---
Progress Note Date Seen: Oct 19, 2024 Medical Necessity Reason Pt with a Central, PICC or Fol: No Subjective Patient reports: Feels better Other Systems: extubated this AM seen with RN Objective vital signs Vital Sign Date Time Temp Pulse Resp B/P (MAP) Pulse Ox O2 Delivery O2 Flow Rate FiO2 10/19/24 13:19 72 24 163/67 10/19/24 12:00 97 Cool Aerosol 10 40 40 10/19/24 10:30 97.7 207.9 Total Intake and Output 10/18/24 10/18/24 10/19/24 15:00 23:00 07:00 Intake Total 0 ml 159.5 ml 196 ml Output Total 300 ml 60 ml Balance 0 ml -140.5 ml 136 ml medications Current Medications Medications Dose Ordered Sig/Joshua Route Start Time Stop Time Status Last Admin Dose Admin Docusate Sodium 100 mg BIDPRN PRN PO 10/15/24 12:15 10/17/24 00:53 100 MG Morphine Sulfate 2 mg Q4HPRN PRN IV 10/15/24 12:15 10/19/24 13:19 2 MG Nitroglycerin 0.4 mg Q5MINP PRN SL 10/15/24 12:15 Diagnostic Test (Pha) 1 strip Q6HR 10/15/24 18:00 10/19/24 12:00 1 STRIP Insulin Human Regular Q6HR SC 10/15/24 18:00 10/19/24 11:33 3 UNITS Dextrose 50 ml UD PRN IV 10/15/24 12:15 Metronidazole 100 ml @ 100 mls/hr Q8HR IV 10/15/24 14:00 10/19/24 05:34 100 MLS/HR Cefepime HCl 50 ml @ 12.5 mls/hr DAILY IV 10/16/24 10:00 10/19/24 09:49 12.5 MLS/HR Heparin Sodium (Porcine) 5,000 units Q12HR SC 10/16/24 22:00 10/19/24 09:49 5,000 UNITS Insulin Glargine 15 units HS SC 10/16/24 22:00 10/18/24 22:20 15 UNITS Pantoprazole Sodium 40 mg DAILY IV 10/19/24 10:00 10/19/24 09:49 40 MG Midazolam HCl 50 ml @ 1 mls/hr Q24H IV 10/18/24 16:15 10/19/24 05:46 2 MLS/HR Fentanyl Citrate 250 ml @ 2.5 mls/hr Q24H IV 10/18/24 16:15 10/18/24 16:37 2.5 MLS/HR Norepinephrine Bitartrate 250 ml @ 3.75 mls/hr Q24H IV 10/18/24 16:15 Examination: GENERAL:Abnormal, HEENT:Abnormal, LUNGS:Abnormal, CVS:Abnormal, ABDOMEN:Abnormal laboratory and microbiology Laboratory Tests 10/19/24 05:30 Test 10/19/24 05:30 Range/Units Serum Glucose 173 H 74-106 mg/dL Microbiology Date/Time Source Procedure Growth Status 10/18/24 15:40 Sputum Gram Stain Pending Resulted 10/18/24 15:40 Sputum Respiratory Culture - Preliminary Resulted 10/16/24 09:30 Foot Right Gram Stain - Final Resulted 10/16/24 09:30 Wound Culture - Preliminary Enterobacter cloacae Resulted Problem List/Assessment/Plan Problem List/Assessment/Plan pod 1 from general surgery obesity cad s/p cabg esrd on hd hx of severe chf with low EF 35% trop was - extubated now cont tele monitoring pressors as needed HD per renal , TTS Plan discussed with: Patient Dietary Evaluation Review Comments: 1) Advance pt diet when medically feasible to a Cardiac/[facility] 60g/Renal Standard diet 2) Continue current plan of care Expected Outcomes/Goals: 1) Pt diet to advance 2) F/U in 2-3 days Date of Service: Oct 19, 2024 Billing Provider: PRABHA HOSKINS MD Common Visit Codes: NOT BILLABLE PRABHA HOSKINS MD Oct 19, 2024 13:45
--- NOTE | 2024-10-19 14:14 | DVHPNRES ---
Progress Note Date Seen: Oct 19, 2024 Resident Creating Document: BAHMAN BRAY RESIDENT Medical Necessity Reason Pt with a Central, PICC or Fol: No Subjective Review of Systems Patient was seen and examined at bedside. Patient was in mechanical ventilator on minimal vent settings, no pressors, CPAP trial was initiated, off sedation, patient tolerated well, followed commands, he was successfully extubated. Swallow evaluation pending Cardiology following Objective vital signs Vital Sign Date Time Temp Pulse Resp B/P (MAP) Pulse Ox O2 Delivery O2 Flow Rate FiO2 10/19/24 14:00 18 97 Cool Aerosol 10 40 40 10/19/24 14:00 82 10/19/24 13:49 160/76 10/19/24 10:30 97.7 207.9 Total Intake and Output 10/18/24 10/18/24 10/19/24 15:00 23:00 07:00 Intake Total 0 ml 159.5 ml 196 ml Output Total 300 ml 60 ml Balance 0 ml -140.5 ml 136 ml medications Current Medications Medications Dose Ordered Sig/Joshua Route Start Time Stop Time Status Last Admin Dose Admin Docusate Sodium 100 mg BIDPRN PRN PO 10/15/24 12:15 10/17/24 00:53 100 MG Morphine Sulfate 2 mg Q4HPRN PRN IV 10/15/24 12:15 10/19/24 13:19 2 MG Nitroglycerin 0.4 mg Q5MINP PRN SL 10/15/24 12:15 Diagnostic Test (Pha) 1 strip Q6HR 10/15/24 18:00 10/19/24 12:00 1 STRIP Insulin Human Regular Q6HR SC 10/15/24 18:00 10/19/24 11:33 3 UNITS Dextrose 50 ml UD PRN IV 10/15/24 12:15 Metronidazole 100 ml @ 100 mls/hr Q8HR IV 10/15/24 14:00 10/19/24 05:34 100 MLS/HR Cefepime HCl 50 ml @ 12.5 mls/hr DAILY IV 10/16/24 10:00 10/19/24 09:49 12.5 MLS/HR Heparin Sodium (Porcine) 5,000 units Q12HR SC 10/16/24 22:00 10/19/24 09:49 5,000 UNITS Insulin Glargine 15 units HS SC 10/16/24 22:00 12/13/24 22:20 15 UNITS Pantoprazole Sodium 40 mg DAILY IV 10/19/24 10:00 10/19/24 09:49 40 MG Midazolam HCl 50 ml @ 1 mls/hr Q24H IV 10/18/24 16:15 10/19/24 05:46 2 MLS/HR Fentanyl Citrate 250 ml @ 2.5 mls/hr Q24H IV 10/18/24 16:15 10/18/24 16:37 2.5 MLS/HR Norepinephrine Bitartrate 250 ml @ 3.75 mls/hr Q24H IV 10/18/24 16:15 Examination General: Awake, alert, comfortable appearing, in no acute distress. HEENT: Head is normocephalic and atraumatic. Pupils are equal, round, and reactive to light. Extraocular muscles are intact. No nasal discharge. No facial trauma. Intraoral exam shows moist mucous membranes with no tonsillar enlargement or exudate. Neck: Supple with no cervical lymphadenopathy No meningismus. No goiter. Heart: Regular rate without murmur, rub, or gallop. Lungs: Scattered crackles Abdomen: No external sign of injury. Bowel sounds are present. Abdomen is soft, nontender. No rebound, no guarding, no rigidity. There are no palpable masses. There is no flank pain on exam. Extremities: Strong peripheral pulses. There is no clubbing, no cyanosis, and no edema. Skin: No rash. Neurologic: Cranial nerves II-XII intact without motor, sensory, or cerebellar deficit, no asterixis. laboratory and microbiology Laboratory Tests 10/19/24 05:30 Test 10/19/24 05:30 Range/Units Serum Glucose 173 H 74-106 mg/dL Microbiology Date/Time Source Procedure Growth Status 10/18/24 15:40 Sputum Gram Stain Pending Resulted 10/18/24 15:40 Sputum Respiratory Culture - Preliminary Resulted 10/16/24 09:30 Foot Right Gram Stain - Final Resulted 10/16/24 09:30 Wound Culture - Preliminary Enterobacter cloacae Resulted Labs and/or images reviewed: Labs reviewed by me, Image(s) reviewed by me Problem List/Assessment/Plan Problem List/Assessment/Plan # S/p Cardiac arrest with ROSC # Acute hypoxic respiratory failure status post mechanical ventilator - extubated on 10/19/2024 - off vasopressors # acute abdominal pain # acute intractable nausea and vomiting # acute cholecystitis # S/p Lap cholecystectomy - CT abdomen pelvis shows distended gallbladder with small calcified gallstones day of the bed and neck and moderate inflammatory stranding - RUQ ultrasound shows gallstones with gallbladder wall thickening - elevated ALP - MRCP shows no no biliary ductal dilation, no evidence of choledocholithiasis - surgery consulted - patient was on IV metronidazole and cefepime - Zofran p.r.n. for nausea, vomiting Pending swallow evaluation # diabetic foot ulcer - Gram stain and culture pending - foot x-ray shows soft tissue swelling and no radiographic evidence osteomyelitis - wound culture shows growth of Enterobacter cloacae on cefepime IV - podiatry consulted # leukocytosis with left shift - likely due to acute cholecystitis vs foot ulcer -on IV antibiotics # end-stage renal disease on dialysis - on dialysis Monday # coronary artery disease status post CABG # ischemic cardiomyopathy # heart failure with reduced ejection fraction - echo shows severely dilated left ventricle, LVEF 35%, grade 2 diastolic dysfunction Mild to moderately elevated RVSP at 40 mmHg - patient on carvedilol - with the medications to be started as tolerated. # uncontrolled type 2 diabetes mellitus with hyperglycemia - insulin Lantus 15 units HS - mild insulin sliding scale - goal blood glucose level 140-180 mg/dL Care time 57 minutes. Plan discussed with patient's jose. Full code Plan discussed with Dr. Ott Plan discussed with: Patient, Spouse, Other (RN) My Orders My Orders Orders - BAHMAN BRAY Procedure Category Date Status Time Abg W/ Co-Ox RT 10/18/24 Logged 15:46 Chest Portable XY 10/18/24 Resulted 15:46 Pantoprazole PHA 10/19/24 In Process (Protonix) 10:00 Midazolam Drip 50 PHA 10/18/24 In Process Mg/50ml (Versed Drip 5 16:15 Fentanyl Drip PHA 10/18/24 In Process 2500mcg/250mlns 16:15 Norepinephrine 8 PHA 10/18/24 In Process Mg/250ml Kit 16:15 Central Line Insertion BD 10/18/24 Transmitted 16:08 Chest Portable XY 10/19/24 Resulted 04:00 Abg W/ Co-Ox RT 10/19/24 Logged 04:00 Cpap Trial For Am ORDERS 10/19/24 Transmitted 08:55 Ventilator Orders RT 10/19/24 Transmitted 09:21 Communication Order ORDERS 10/19/24 Transmitted 09:38 Abg W/ Co-Ox RT 10/19/24 Logged 09:48 * Swallow Request ST 10/19/24 Transmitted 12:53 Complete Blood Count LAB 10/20/24 Verified 04:00 Comprehensive LAB 10/20/24 Verified Metabolic Panel 04:00 Chest Portable XY 10/20/24 Logged 04:00 Dietary Evaluation Review Comments: 1) Advance pt diet when medically feasible to a Cardiac/[facility] 60g/Renal Standard diet 2) Continue current plan of care Expected Outcomes/Goals: 1) Pt diet to advance 2) F/U in 2-3 days Date of Service: Oct 19, 2024 Billing Provider: VALENTÍN OTT MD Common Visit Codes: [id number] CARE 30-74 MIN BAHMAN BRAY RESIDENT Oct 19, 2024 14:14 VALENTÍN OTT MD Oct 19, 2024 20:02
[2024-10-19] MEDS: hydrALAZINE HCL 20 MG/ML VL IV PRN (17:24)
--- NOTE | 2024-10-19 19:06 | DVHINCON2 ---
I am covering for Dr. Sutherland. The patient has undergone cholecystectomy and required intubation yesterday with a very brief CPR. HISTORY OF PRESENT ILLNESS: The patient was given a trial of CPAP this morning, which the patient tolerated quite well. The patient was on CPAP with a pressure support of 8, PEEP of 5 and 30% FiO2. At the end of the trial, the patient's blood gases revealed pH 7.37, pCO2 34 and pO2 97. Weaning parameters were adequate. The patient has been extubated. The patient is now about 1 hour post-extubation. He is undergoing dialysis. Two liters apparently removed. The patient is completely alert and oriented. He denies any pain. He denies any nausea or vomiting. Urine output has been stable. PHYSICAL EXAMINATION: VITAL SIGNS: Stable. Heart rate 82, respiratory rate 18, blood pressure 160/72 and saturations 97 on 4 liters now. HEENT: Unremarkable. Moderate oropharyngeal crowding. Tongue moist. CHEST: Reveals diminished air entry at bases. No wheezing. No rales were appreciated. 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 Bowel sounds are sluggish. EXTREMITIES: 1+ pedal edema. NEUROLOGIC: Awake, oriented and moving all extremities. LABORATORY DATA: Chest x-ray shows mild pulmonary vascular congestion. Other lab work significant for a chloride 97, BUN 58, creatinine 7.92 and glucose 173. Others were noted. Blood gases; pH 7.37, pCO2 of 34, pO2 of 97 on CPAP with a pressure support of 8 and PEEP of 5. Blood cultures and wound cultures have grown Enterobacter cloacae. IMPRESSION: Acute respiratory failure, status post cardiac arrest, end-stage renal disease, acute cholecystitis, diabetic foot ulcer, history of coronary artery disease, diabetes, hypertension and obesity. PLAN: At this time, we will decrease FiO2 to keep saturations greater than 92. If room air saturations are greater than 92, can discontinue oxygen. Incentive spirometry. The patient is planned to undergo swallowing evaluation and can feed and can get tube feeding per Dr. Zimmerman if meets weaning criteria. The patient is also getting hypertensive and we will give hydralazine p.r.n. Continue Protonix for GI prophylaxis. Pain control. The patient is on cefepime. Rest of the medical management per response. Critical time 33 minutes. MD DAVION Cosby/RICHARD TID: [id number] RECEIPT: [id number] cc: GHAZALA RICHMOND
[2024-10-19] MEDS: EPOETIN ALFA-EPBX 4,000 UNIT/ML VIAL SC ONE (21:13)
[2024-10-20] VITALS (48 sets, daily range): BP systolic 93–182; BP diastolic 45–90; PULSE 68–98; RESP 13–26; TEMP 98.1–100; O2SAT 88–99
[2024-10-20 03:22] LABS: Basophils # (auto) 0 10 ^3/uL (0-0.2); Basophils % (auto) 0.4 % (0.0-2.0); Eosinophils # (auto) 0.1 10 ^3/uL (0-0.8); Eosinophils % (auto) 0.6 % (0.0-7.0); Hematocrit 29.2 % (41.0-53.0); Hemoglobin 9.9 g/dL (13.5-17.5); Lymphocytes # (auto) 0.9 10 ^3/uL (0.4-5.4); Lymphocytes % (auto) 9.7 % (10.0-50.0); Mean Corpuscular Hemoglobin 31.7 pg (28.0-32.0); Mean Corpuscular Hgb Conc. 33.9 g/dL (32.0-36.0); Mean Corpuscular Volume 93.3 fL (80.0-100.0); Monocytes # (auto) 0.9 10 ^3/uL (0-1.3); Monocytes % (auto) 9.6 % (0.0-12.0); Neutrophils # (auto) 7.2 10 ^3/uL (1.6-8.6); Neutrophils % (auto) 79.7 % (37.0-80.0); Platelet Count (auto) 266 10^3/uL (140-450); Red Blood Cells 3.13 10^6/uL (4.5-5.90); Red Cell Distribution Width 15.2 % (11.8-14.3); White Blood Cell 9.1 10^3/uL (4.4-10.8)
[2024-10-20 03:38] LABS: Calcium 8.9 mg/dL (8.7-10.4); Carbon Dioxide 27 mmol/L (20-31)
[2024-10-20 03:39] LABS: Albumin 3.6 g/dL (3.2-4.8); Anion Gap 12 (5-15); Aspartate Aminotransferase 31 U/L (13-40); BUN/Creatinine Ratio 7.3 (10.0-20.0); Potassium 3.7 mmol/L (3.5-5.1)
[2024-10-20 03:40] LABS: Bilirubin, Total 0.4 mg/dL (0.2-1.0); Total Protein 6.8 g/dL (5.7-8.2)
[2024-10-20 03:43] LABS: Alanine Aminotransferase 9 U/L (7-40); Alkaline Phosphatase 155 U/L (46-116); Blood Urea Nitrogen 43 mg/dL (9-23); Chloride 96 mmol/L (98-107); Glucose 140 mg/dL (74-106); Sodium 135 mmol/L (136-145)
--- NOTE | 2024-10-20 06:04 | DVH ---
CHEST RADIOGRAPH Indication: sob Technique: Single frontal view of the chest was obtained COMPARISON: XY CHEST PORTABLE on DOS: 10/19/24, XY CHEST XRAY 1 VIEW on DOS: 10/18/24, XY CHEST NELDA BLE on DOS: 10/18/24 FINDINGS: Lines and Tubes: Median sternotomy. Right central venous catheter in satisfactory position. Lungs: Multifocal airspace disease. Pleura: No effusion. No pneumothorax. Cardiomediastinal contours: Unremarkable Bones: Unremarkable IMPRESSION: No significant interval change.
--- NOTE | 2024-10-20 09:42 | DVHPN2 ---
Progress Note Date Seen: Oct 20, 2024 Medical Necessity Reason Pt with a Central, PICC or Fol: No Subjective Patient reports: Feels better Other Systems: extubated s/p HD on room air bp 170s Objective vital signs Vital Sign Date Time Temp Pulse Resp B/P (MAP) Pulse Ox O2 Delivery O2 Flow Rate FiO2 10/20/24 08:31 98.4 79 15 159/79 (105) 94 209.1 156/75 (102) 10/20/24 08:00 Room Air* 0 21 Total Intake and Output 10/19/24 10/19/24 10/20/24 15:00 23:00 07:00 Intake Total 62.0 ml 100 ml 400 ml Output Total 100 ml 30 ml Balance 62.0 ml 0 ml 370 ml medications Current Medications Medications Dose Ordered Sig/Joshua Route Start Time Stop Time Status Last Admin Dose Admin Docusate Sodium 100 mg BIDPRN PRN PO 10/15/24 12:15 10/17/24 00:53 100 MG Morphine Sulfate 2 mg Q4HPRN PRN IV 10/15/24 12:15 10/19/24 21:50 2 MG Nitroglycerin 0.4 mg Q5MINP PRN SL 10/15/24 12:15 Diagnostic Test (Pha) 1 strip Q6HR 10/15/24 18:00 10/20/24 05:32 1 STRIP Insulin Human Regular Q6HR SC 10/15/24 18:00 10/20/24 05:35 2 UNITS Dextrose 50 ml UD PRN IV 10/15/24 12:15 Metronidazole 100 ml @ 100 mls/hr Q8HR IV 10/15/24 14:00 10/20/24 05:22 100 MLS/HR Cefepime HCl 50 ml @ 12.5 mls/hr DAILY IV 10/16/24 10:00 10/20/24 07:40 12.5 MLS/HR Heparin Sodium (Porcine) 5,000 units Q12HR SC 10/16/24 22:00 10/20/24 07:46 5,000 UNITS Insulin Glargine 15 units HS SC 10/16/24 22:00 10/19/24 22:00 15 UNITS Pantoprazole Sodium 40 mg DAILY IV 10/19/24 10:00 10/20/24 07:40 40 MG Midazolam HCl 50 ml @ 1 mls/hr Q24H IV 10/18/24 16:15 10/19/24 05:46 2 MLS/HR Fentanyl Citrate 250 ml @ 2.5 mls/hr Q24H IV 10/18/24 16:15 10/18/24 16:37 2.5 MLS/HR Norepinephrine Bitartrate 250 ml @ 3.75 mls/hr Q24H IV 10/18/24 16:15 Hydralazine HCl 10 mg Q6HP PRN IV 10/19/24 14:45 10/19/24 17:24 10 MG Examination: GENERAL:Abnormal, HEENT:Abnormal, LUNGS:Abnormal, CVS:Abnormal, ABDOMEN:Abnormal laboratory and microbiology Laboratory Tests 10/20/24 02:58 Test 10/20/24 02:58 Range/Units Serum Glucose 140 H 74-106 mg/dL Microbiology Date/Time Source Procedure Growth Status 10/18/24 15:40 Sputum Gram Stain Pending Resulted 10/18/24 15:40 Sputum Respiratory Culture - Preliminary Resulted 10/16/24 09:30 Foot Right Gram Stain - Final Resulted 10/16/24 09:30 Wound Culture - Preliminary Enterobacter cloacae Resulted Problem List/Assessment/Plan Problem List/Assessment/Plan pod 1 from general surgery obesity cad s/p cabg esrd on hd hx of severe chf with low EF 35% trop was - extubated now cont tele monitoring pressors as needed HD per renal , TTS DM foot wound--seen by podiatry tx to floor when feasible Plan discussed with: Patient, Other (rn) Dietary Evaluation Review Comments: 1) Advance pt diet when medically feasible to a Cardiac/[facility] 60g/Renal Standard diet 2) Continue current plan of care Expected Outcomes/Goals: 1) Pt diet to advance 2) F/U in 2-3 days Date of Service: Oct 20, 2024 Billing Provider: PRABHA HOSKINS MD Common Visit Codes: NOT BILLABLE PRABHA HOSKINS MD Oct 20, 2024 09:42
[2024-10-20] MEDS ORDERED: CARVEDILOL 3.125 MG TAB PO ONE (11:45)
[2024-10-20] MEDS: CARVEDILOL 3.125 MG TAB PO ONE (13:17)
--- NOTE | 2024-10-20 14:10 | DVHPN2 ---
Progress Note - Dictate Date Seen: Oct 20, 2024 Medical Necessity Reason Pt with a Central, PICC or Fol: No Subjective Patient extubated. Downgraded to telemetry. vital signs Vital Sign Date Time Temp Pulse Resp B/P (MAP) Pulse Ox O2 Delivery O2 Flow Rate FiO2 10/20/24 13:17 89 156/66 10/20/24 10:44 14 10/20/24 08:31 98.4 94 209.1 10/20/24 08:00 Room Air* 0 21 Total Intake and Output 10/19/24 10/19/24 10/20/24 15:00 23:00 07:00 Intake Total 62.0 ml 100 ml 400 ml Output Total 100 ml 30 ml Balance 62.0 ml 0 ml 370 ml medications Current Medications Medications Dose Ordered Sig/Joshua Route Start Time Stop Time Status Last Admin Dose Admin Docusate Sodium 100 mg BIDPRN PRN PO 10/15/24 12:15 10/17/24 00:53 100 MG Morphine Sulfate 2 mg Q4HPRN PRN IV 10/15/24 12:15 10/20/24 10:14 2 MG Nitroglycerin 0.4 mg Q5MINP PRN SL 10/15/24 12:15 Diagnostic Test (Pha) 1 strip Q6HR 10/15/24 18:00 10/20/24 12:00 1 STRIP Insulin Human Regular Q6HR SC 10/15/24 18:00 10/20/24 05:35 2 UNITS Dextrose 50 ml UD PRN IV 10/15/24 12:15 Metronidazole 100 ml @ 100 mls/hr Q8HR IV 10/15/24 14:00 10/20/24 13:16 100 MLS/HR Cefepime HCl 50 ml @ 12.5 mls/hr DAILY IV 10/16/24 10:00 10/20/24 07:40 12.5 MLS/HR Heparin Sodium (Porcine) 5,000 units Q12HR SC 10/16/24 22:00 10/20/24 07:46 5,000 UNITS Insulin Glargine 15 units HS SC 10/16/24 22:00 10/19/24 22:00 15 UNITS Pantoprazole Sodium 40 mg DAILY IV 10/19/24 10:00 10/20/24 07:40 40 MG Midazolam HCl 50 ml @ 1 mls/hr Q24H IV 10/18/24 16:15 10/19/24 05:46 2 MLS/HR Fentanyl Citrate 250 ml @ 2.5 mls/hr Q24H IV 10/18/24 16:15 10/18/24 16:37 2.5 MLS/HR Norepinephrine Bitartrate 250 ml @ 3.75 mls/hr Q24H IV 10/18/24 16:15 Carvedilol 3.125 mg Q12HR PO 10/20/24 22:00 Hydralazine HCl 10 mg Q4HP PRN IV 10/20/24 11:45 objective Alert and awake HEENT: Normocephalic, no JVD Lungs: Bilateral good air entry CVS: S1, S2 regular rate rhythm Abdomen: Status post surgery 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 Continue with IV antibiotics. Downgraded to telemetry. Dietary Evaluation Review Comments: 1) Advance pt diet when medically feasible to a Cardiac/[facility] 60g/Renal Standard diet 2) Continue current plan of care Expected Outcomes/Goals: 1) Pt diet to advance 2) F/U in 2-3 days Plan discussed with: Patient ROSSANA COOL MD Oct 20, 2024 14:10
[2024-10-20] MEDS: hydrALAZINE HCL 20 MG/ML VL IV PRN (14:16)
--- NOTE | 2024-10-20 16:52 | DVHPNRES ---
Progress Note Date Seen: Oct 20, 2024 Resident Creating Document: JHPanfiloJKyleMARY ANN RESIDENT Medical Necessity Reason Pt with a Central, PICC or Fol: No Subjective Review of Systems Patient was seen and examined at bedside. Alert and oriented X 4 Reports sternal discomfort. Patient has not passed Flatus and has not had a bowel movement. Patient remains extubated and on 1L O2 via NC. Swallow evaluation - tolerate regular texture diet Downgraded to tele. Objective vital signs Vital Sign Date Time Temp Pulse Resp B/P (MAP) Pulse Ox O2 Delivery O2 Flow Rate FiO2 10/20/24 14:50 86 22 133/57 10/20/24 14:31 99.1 95 210.4 10/20/24 14:00 Nasal Cannula* 1 24 Total Intake and Output 10/19/24 10/19/24 10/20/24 14:59 22:59 06:59 Intake Total 74.0 ml 100 ml 400 ml Output Total 100 ml 30 ml Balance 74.0 ml 0 ml 370 ml medications Current Medications Medications Dose Ordered Sig/Joshua Route Start Time Stop Time Status Last Admin Dose Admin Docusate Sodium 100 mg BIDPRN PRN PO 10/15/24 12:15 10/17/24 00:53 100 MG Morphine Sulfate 2 mg Q4HPRN PRN IV 10/15/24 12:15 10/20/24 14:20 2 MG Nitroglycerin 0.4 mg Q5MINP PRN SL 10/15/24 12:15 Diagnostic Test (Pha) 1 strip Q6HR 10/15/24 18:00 10/20/24 12:00 1 STRIP Insulin Human Regular Q6HR SC 10/15/24 18:00 10/20/24 05:35 2 UNITS Dextrose 50 ml UD PRN IV 10/15/24 12:15 Metronidazole 100 ml @ 100 mls/hr Q8HR IV 10/15/24 14:00 10/20/24 13:16 100 MLS/HR Cefepime HCl 50 ml @ 12.5 mls/hr DAILY IV 10/16/24 10:00 10/20/24 07:40 12.5 MLS/HR Heparin Sodium (Porcine) 5,000 units Q12HR SC 10/16/24 22:00 10/20/24 07:46 5,000 UNITS Insulin Glargine 15 units HS SC 10/16/24 22:00 10/19/24 22:00 15 UNITS Pantoprazole Sodium 40 mg DAILY IV 10/19/24 10:00 10/20/24 07:40 40 MG Midazolam HCl 50 ml @ 1 mls/hr Q24H IV 10/18/24 16:15 10/19/24 05:46 2 MLS/HR Fentanyl Citrate 250 ml @ 2.5 mls/hr Q24H IV 10/18/24 16:15 10/18/24 16:37 2.5 MLS/HR Norepinephrine Bitartrate 250 ml @ 3.75 mls/hr Q24H IV 10/18/24 16:15 Carvedilol 3.125 mg Q12HR PO 10/20/24 22:00 Hydralazine HCl 10 mg Q4HP PRN IV 10/20/24 11:45 10/20/24 14:16 10 MG Examination Gen - no pallor, no icterus, no cyanosis, no clubbing, no LAD, trace pedal edema. Skin - Patients skin is warm and dry. HEENT - normocephalic, atraumatic, dry mucous membranes. Neck - full ROM, no LAD, no JVD. Pulmonary - B/L scattered basilar crackles, no wheezing cardiovascular - normal S1,S2 heard. no murmurs heard. peripheral pulses normal radial 2+, pedal 2+. capillary refill normal <2 secs. GI - soft abdomen s/p surgery. Bowel sounds hypoactive Neurological - A/O X 4. no motor deficits. lower limbs sensory deficits upto the ankles Extremity: right plantar surface ulcer 1x1cm with 1 cm depth covered in sterile dressing. laboratory and microbiology Laboratory Tests 10/20/24 02:58 Test 10/20/24 02:58 Range/Units Serum Glucose 140 H 74-106 mg/dL Microbiology Date/Time Source Procedure Growth Status 10/18/24 15:40 Sputum Gram Stain Pending Resulted 10/18/24 15:40 Sputum Respiratory Culture - Preliminary Resulted 10/16/24 09:30 Foot Right Gram Stain - Final Resulted 10/16/24 09:30 Wound Culture - Preliminary Enterobacter cloacae Stenotrophomonas maltophilia Klebsiella oxytoca Resulted Problem List/Assessment/Plan Problem List/Assessment/Plan Assessment and plan # S/p Cardiac arrest with ROSC # Acute hypoxic respiratory failure - extubated on 10/19/2024, on O2 1L via NC - off vasopressors # acute abdominal pain # acute intractable nausea and vomiting # acute cholecystitis # S/p Lap cholecystectomy - CT abdomen pelvis shows distended gallbladder with small calcified gallstones day of the bed and neck and moderate inflammatory stranding - RUQ ultrasound shows gallstones with gallbladder wall thickening - elevated ALP - MRCP shows no no biliary ductal dilation, no evidence of choledocholithiasis - surgery consulted - patient was on IV metronidazole and cefepime - Zofran p.r.n. for nausea, vomiting - on clear liquid diet - Surgery POD 2, no flatus, no bowel movement - continue on clear liquid diet # diabetic foot ulcer - Gram stain and culture pending - foot x-ray shows soft tissue swelling and no radiographic evidence osteomyelitis - wound culture shows growth of Enterobacter cloacae on cefepime IV - podiatry consulted # leukocytosis with left shift - likely due to acute cholecystitis vs foot ulcer -on IV antibiotics # end-stage renal disease on dialysis - on dialysis Monday - dialysis done yesterday, drained 2.5L fluid # coronary artery disease status post CABG # ischemic cardiomyopathy # heart failure with reduced ejection fraction - echo shows severely dilated left ventricle, LVEF 35%, grade 2 diastolic dysfunction Mild to moderately elevated RVSP at 40 mmHg - patient on carvedilol 3.125mg bid # uncontrolled type 2 diabetes mellitus with hyperglycemia - insulin Lantus 15 units HS - mild insulin sliding scale - goal blood glucose level 140-180 mg/dL DVT prophylaxis: heparin SC 5000U BID Plan discussed with patient and his jose. Full code Plan discussed with Dr. Ott Plan discussed with: Patient, Spouse, Daughter My Orders My Orders Orders - MARY ANN GALICIA RESIDENT Procedure Category Date Status Time Carvedilol Tablet PHA 10/20/24 In Process (Coreg Tablet) 22:00 Hydralazine Injection PHA 10/20/24 In Process (Apresoline Inject 11:45 Transfer Orders XFER 10/20/24 Transmitted 11:42 Remove A Line CASTILLO 10/20/24 In Process 13:31 Dietary Evaluation Review Comments: 1) Advance pt diet when medically feasible to a Cardiac/CCHO 60g/Renal Standard diet 2) Continue current plan of care Expected Outcomes/Goals: 1) Pt diet to advance 2) F/U in 2-3 days Date of Service: Oct 20, 2024 Billing Provider: VALENTÍN OTT MD Common Visit Codes: [id number] INP/OBS CARE(HIGH) MARY ANN GALICIA RESIDENT Oct 20, 2024 16:52 VALENTÍN OTT MD Oct 20, 2024 23:36
[2024-10-20] MEDS: HYDROmorphone HCL 2 MG/ML VL/or syr IV PRN (17:23)
--- NOTE | 2024-10-20 20:44 | DVHPN ---
DATE: 10/20/2024 PULMONARY FOLLOWUP PRIMARY PHYSICIAN: Dr. Cui. HISTORY: The patient was seen in the afternoon in the ICU. The patient is doing well. He has been extubated yesterday. He denies any significant cough, expectoration or fever. He does complain of pain at the operative site. The patient was on room air, in no acute distress. PHYSICAL EXAMINATION: VITAL SIGNS: T-max of 99.9, heart rate 96, respiratory rate 24, blood pressure 150/71 and saturation 96%. NECK: Supple. CHEST: Diminished air entry at bases. ABDOMEN: Slightly tender. Bowel sounds are present, but sluggish. No organomegaly appreciated. The patient still has a MATY drain. EXTREMITIES: 1+ pedal edema. LABORATORY WORK: Hemoglobin 9.9, hematocrit 29, WBC is 9.1. Other lab work noted. Serum chemistries; chloride 96, BUN 43, creatinine 5.92. IMPRESSION: * Acute cholecystitis. * Acute respiratory failure, possible pneumonia, possible aspiration and status post extubation. PLAN: At this time, we would continue antibiotics for 7 days unless, otherwise needed from surgical perspective. The patient is on cefepime and Flagyl. Continue heparin for DVT prophylaxis. Incentive spirometry. Protonix for GI prophylaxis. Rest of the medical management per response. Thank you asking me to see this patient. We will follow up. Please call if any questions or concerns. MD DAVION Cosby/RICHARD TID: [id number] RECEIPT: [id number]
[2024-10-20] MEDS: CARVEDILOL 3.125 MG TAB PO SCH (21:17)
--- NOTE | 2024-10-20 21:37 | DVHPN2 ---
Progress Note Date Seen: Oct 20, 2024 Medical Necessity Reason Pt with a Central, PICC or Fol: No Objective vital signs Vital Sign Date Time Temp Pulse Resp B/P (MAP) Pulse Ox O2 Delivery O2 Flow Rate FiO2 10/20/24 21:17 98 150/72 10/20/24 19:01 98.8 22 94 98.8 10/20/24 18:55 Nasal Cannula* 2 28 Total Intake and Output 10/19/24 10/19/24 10/20/24 15:00 23:00 07:00 Intake Total 62.0 ml 100 ml 400 ml Output Total 100 ml 30 ml Balance 62.0 ml 0 ml 370 ml medications Current Medications Medications Dose Ordered Sig/Joshua Route Start Time Stop Time Status Last Admin Dose Admin Docusate Sodium 100 mg BIDPRN PRN PO 10/15/24 12:15 10/17/24 00:53 100 MG Nitroglycerin 0.4 mg Q5MINP PRN SL 10/15/24 12:15 Diagnostic Test (Pha) 1 strip Q6HR 10/15/24 18:00 10/20/24 17:27 1 STRIP Insulin Human Regular Q6HR SC 10/15/24 18:00 10/20/24 17:27 3 UNITS Dextrose 50 ml UD PRN IV 10/15/24 12:15 Metronidazole 100 ml @ 100 mls/hr Q8HR IV 10/15/24 14:00 10/20/24 13:16 100 MLS/HR Cefepime HCl 50 ml @ 12.5 mls/hr DAILY IV 10/16/24 10:00 10/20/24 07:40 12.5 MLS/HR Heparin Sodium (Porcine) 5,000 units Q12HR SC 10/16/24 22:00 10/20/24 07:46 5,000 UNITS Insulin Glargine 15 units HS SC 10/16/24 22:00 10/19/24 22:00 15 UNITS Pantoprazole Sodium 40 mg DAILY IV 10/19/24 10:00 10/20/24 07:40 40 MG Midazolam HCl 50 ml @ 1 mls/hr Q24H IV 10/18/24 16:15 10/19/24 05:46 2 MLS/HR Fentanyl Citrate 250 ml @ 2.5 mls/hr Q24H IV 10/18/24 16:15 10/18/24 16:37 2.5 MLS/HR Norepinephrine Bitartrate 250 ml @ 3.75 mls/hr Q24H IV 10/18/24 16:15 Carvedilol 3.125 mg Q12HR PO 10/20/24 22:00 10/20/24 21:17 3.125 MG Hydralazine HCl 10 mg Q4HP PRN IV 10/20/24 11:45 10/20/24 14:16 10 MG Hydromorphone HCl 0.25 mg Q4HPRN PRN IV 10/20/24 17:00 10/20/24 17:23 0.25 MG laboratory and microbiology Laboratory Tests 10/20/24 02:58 Test 10/20/24 02:58 Range/Units Serum Glucose 140 H 74-106 mg/dL Microbiology Date/Time Source Procedure Growth Status 10/18/24 15:40 Sputum Gram Stain Pending Resulted 10/18/24 15:40 Sputum Respiratory Culture - Preliminary Resulted 10/16/24 09:30 Foot Right Gram Stain - Final Resulted 10/16/24 09:30 Wound Culture - Preliminary Enterobacter cloacae Stenotrophomonas maltophilia Klebsiella oxytoca Resulted Problem List/Assessment/Plan Problem List/Assessment/Plan AFEBRILE VSS ABD SOFT LESS TENDER WBC DOWN LFT DOWN ALKP ELEVATED BUT TRENDING DOWN REMAINS EXTUBATED WOUNDS HEALING DRAIN SEROSANGUINEOUS 40 CC CONTINUE CLOSE OBSERVATION NO BM NO FLATUS CLEAR LIQUIDS Plan discussed with: Patient My Orders My Orders Orders - AUSTYN ROJAS MD Procedure Category Date Status Time Hydromorphone PHA 10/20/24 In Process Injection (Dilaudid 17:00 Clear Liq Diet DIET 10/20/24 Transmitted Dinner Dietary Evaluation Review Comments: 1) Advance pt diet when medically feasible to a Cardiac/CCHO 60g/Renal Standard diet 2) Continue current plan of care Expected Outcomes/Goals: 1) Pt diet to advance 2) F/U in 2-3 days AUSTYN ROJAS MD Oct 20, 2024 21:37
[2024-10-20] MEDS ORDERED: CARVEDILOL 3.125 MG TAB PO SCH (22:00)
[2024-10-21] VITALS (17 sets, daily range): BP systolic 116–138; BP diastolic 48–65; PULSE 75–93; RESP 16–22; TEMP 97.9–100.4; O2SAT 90–96
[2024-10-21 07:38] LABS: Basophils # (auto) 0.1 10 ^3/uL (0-0.2); Basophils % (auto) 0.8 % (0.0-2.0); Eosinophils # (auto) 0.1 10 ^3/uL (0-0.8); Eosinophils % (auto) 1.4 % (0.0-7.0); Hematocrit 30.3 % (41.0-53.0); Hemoglobin 10.1 g/dL (13.5-17.5); Lymphocytes # (auto) 0.9 10 ^3/uL (0.4-5.4); Lymphocytes % (auto) 10.8 % (10.0-50.0); Mean Corpuscular Hemoglobin 31.3 pg (28.0-32.0); Mean Corpuscular Hgb Conc. 33.1 g/dL (32.0-36.0); Mean Corpuscular Volume 94.5 fL (80.0-100.0); Monocytes % (auto) 11.7 % (0.0-12.0); Neutrophils # (auto) 6.6 10 ^3/uL (1.6-8.6); Neutrophils % (auto) 75.3 % (37.0-80.0); Nucleated Red Blood Cells % 0.1 %; Platelet Count (auto) 304 10^3/uL (140-450); Red Blood Cells 3.21 10^6/uL (4.5-5.90); Red Cell Distribution Width 15.3 % (11.8-14.3); White Blood Cell 8.8 10^3/uL (4.4-10.8)
[2024-10-21 07:39] LABS: Potassium 3.8 mmol/L (3.5-5.1)
[2024-10-21 07:40] LABS: Anion Gap 14 (5-15); Calcium 8.7 mg/dL (8.7-10.4); Carbon Dioxide 24 mmol/L (20-31)
[2024-10-21 07:45] LABS: BUN/Creatinine Ratio 7.4 (10.0-20.0)
[2024-10-21 07:51] LABS: Blood Urea Nitrogen 57 mg/dL (9-23); Chloride 96 mmol/L (98-107); Glucose 111 mg/dL (74-106); Sodium 134 mmol/L (136-145)
--- NOTE | 2024-10-21 11:22 | MEDREC ---
[facility] Intervention Section I [facility] Intervention: Deescalate AB based on CS (PLEASE CONSIDER DEESCALATE ANTIBIOTICS BASED ON CULTURE RESULTS ) CHAD IRAHETA PHARMACIST Oct 21, 2024 11:22
--- NOTE | 2024-10-21 13:56 | DVHPN2 ---
Progress Note - Dictate Date Seen: Oct 21, 2024 Medical Necessity Reason Pt with a Central, PICC or Fol: No Subjective Continues to have soreness from the chest compressions given, but otherwise denies orthopnea. vital signs Vital Sign Date Time Temp Pulse Resp B/P (MAP) Pulse Ox O2 Delivery O2 Flow Rate FiO2 10/21/24 10:05 88 121/65 10/21/24 10:00 17 90 Nasal Cannula* 2 28 10/21/24 09:00 98.3 98.3 Total Intake and Output 10/20/24 10/20/24 10/21/24 15:00 23:00 07:00 Intake Total 150.0 ml 364 ml 460 ml Output Total 30 ml 500 ml Balance 150.0 ml 334 ml -40 ml medications Current Medications Medications Dose Ordered Sig/Joshua Route Start Time Stop Time Status Last Admin Dose Admin Docusate Sodium 100 mg BIDPRN PRN PO 10/15/24 12:15 10/17/24 00:53 100 MG Nitroglycerin 0.4 mg Q5MINP PRN SL 10/15/24 12:15 Diagnostic Test (Pha) 1 strip Q6HR 10/15/24 18:00 10/21/24 12:10 1 STRIP Insulin Human Regular Q6HR SC 10/15/24 18:00 10/21/24 12:21 3 UNITS Dextrose 50 ml UD PRN IV 10/15/24 12:15 Metronidazole 100 ml @ 100 mls/hr Q8HR IV 10/15/24 14:00 10/21/24 13:24 100 MLS/HR Cefepime HCl 50 ml @ 12.5 mls/hr DAILY IV 10/16/24 10:00 10/21/24 09:06 12.5 MLS/HR Heparin Sodium (Porcine) 5,000 units Q12HR SC 10/16/24 22:00 10/21/24 09:12 5,000 UNITS Insulin Glargine 15 units HS SC 10/16/24 22:00 10/20/24 21:46 15 UNITS Pantoprazole Sodium 40 mg DAILY IV 10/19/24 10:00 10/21/24 09:04 40 MG Midazolam HCl 50 ml @ 1 mls/hr Q24H IV 10/18/24 16:15 10/19/24 05:46 2 MLS/HR Fentanyl Citrate 250 ml @ 2.5 mls/hr Q24H IV 10/18/24 16:15 10/18/24 16:37 2.5 MLS/HR Norepinephrine Bitartrate 250 ml @ 3.75 mls/hr Q24H IV 10/18/24 16:15 Carvedilol 3.125 mg Q12HR PO 10/20/24 22:00 10/21/24 09:05 3.125 MG Hydralazine HCl 10 mg Q4HP PRN IV 10/20/24 11:45 10/20/24 14:16 10 MG Hydromorphone HCl 0.25 mg Q4HPRN PRN IV 10/20/24 17:00 10/21/24 04:21 0.25 MG objective HEENT: No evidence of JVD, no oral ulcers. Pulmonary: Lungs are clear on auscultation bilaterally Cardiovascular S1-S2, no S3 or S4 Abdomen: Bowel sounds positive, soft no rebound tenderness Skin: No rash Neurological: Alert, oriented, no focal weakness MATY drain in place laboratory and microbiology Laboratory Tests 10/21/24 06:16 Test 10/21/24 06:16 Range/Units Serum Glucose 111 H 74-106 mg/dL Assessment/Plan Assessment: End-stage kidney disease on hemodialysis Status post cardiac arrest Acute cholecystitis status post laparoscopic cholecystectomy Diabetic foot ulcer Coronary artery disease status post CABG Ischemic cardiomyopathy Type 2 diabetes Hypertension Obesity Recommendations: Hemodialysis on TTS schedule. Continue with IV antibiotics. Downgraded to telemetry. Fluid restriction Analgesics Thank you very much for allowing us to participate in the care of this patient Dietary Evaluation Review Comments: 1) Advance pt diet when medically feasible to a Cardiac/CCHO 60g/Renal Standard diet 2) Continue current plan of care Expected Outcomes/Goals: 1) Pt diet to advance 2) F/U in 2-3 days Plan discussed with: Patient JAY JAY QUINTANA MD Oct 21, 2024 13:56
[2024-10-21] MEDS: HYDROcodone-ACET 5/325MG TAB PO PRN (14:56)
--- NOTE | 2024-10-21 15:51 | DVHPNRES ---
Progress Note Date Seen: Oct 21, 2024 Resident Creating Document: DYLLAN SENIOR RESDIENT Medical Necessity Reason Pt with a Central, PICC or Fol: No Subjective Review of Systems Patient is a 49-year-old male with a past medical history as described below came to the ED with a chief complaint of abdominal pain for the last 4 days. Patient reported that on the past Monday he started having abdominal pain in the epigastric and the right upper quadrant associated with nausea and multiple episodes of vomiting which were mostly yellowish frothy liquid but no associated blood. Patient reported [place] in [place] hospital there where he got medication for pain relief but as he was not feeling well he came back the next 2 days he did not have an appetite and could only tolerate water and only small amount of liquids. Patient has a history of end- stage renal disease and is on dialysis Monday. He went to the dialysis yesterday and while he was there he started having severe abdominal pain which was not tolerable, had to stop dialysis and was brought in by ambulance to the hospital. Past medical history: End-stage renal disease on dialysis TTS, hypertension, CABG, type 2 diabetes mellitus Past surgical history: CABG Social history: Denies smoking, alcohol, drug use Home medications: Carvedilol 50 mg b.i.d., Entresto 02/23/2026 once daily, isosorbide mononitrate 60 mg b.i.d., insulin Humalog and Humulin, phosphorus binders, hydralazine 100 mg t.i.d., atorvastatin 80 mg, aspirin 81 mg Today, 10/21, patient seen and examined at the bedside. Patient is still complained of abdominal pain and shortness of bread. Patient reports: No new complaints Changes from previous H/P or p: No Changes Objective vital signs Vital Sign Date Time Temp Pulse Resp B/P (MAP) Pulse Ox O2 Delivery O2 Flow Rate FiO2 10/21/24 13:00 98.7 88 18 121/65 (83) 91 98.7 10/21/24 10:00 Nasal Cannula* 2 28 Total Intake and Output 10/20/24 10/20/24 10/21/24 15:00 23:00 07:00 Intake Total 150.0 ml 364 ml 460 ml Output Total 30 ml 500 ml Balance 150.0 ml 334 ml -40 ml medications Current Medications Medications Dose Ordered Sig/Joshua Route Start Time Stop Time Status Last Admin Dose Admin Docusate Sodium 100 mg BIDPRN PRN PO 10/15/24 12:15 10/17/24 00:53 100 MG Nitroglycerin 0.4 mg Q5MINP PRN SL 10/15/24 12:15 Diagnostic Test (Pha) 1 strip Q6HR 10/15/24 18:00 10/21/24 12:10 1 STRIP Insulin Human Regular Q6HR SC 10/15/24 18:00 10/21/24 12:21 3 UNITS Dextrose 50 ml UD PRN IV 10/15/24 12:15 Metronidazole 100 ml @ 100 mls/hr Q8HR IV 10/15/24 14:00 10/21/24 13:24 100 MLS/HR Cefepime HCl 50 ml @ 12.5 mls/hr DAILY IV 10/16/24 10:00 10/21/24 09:06 12.5 MLS/HR Heparin Sodium (Porcine) 5,000 units Q12HR SC 10/16/24 22:00 10/21/24 09:12 5,000 UNITS Insulin Glargine 15 units HS SC 10/16/24 22:00 10/20/24 21:46 15 UNITS Pantoprazole Sodium 40 mg DAILY IV 10/19/24 10:00 10/21/24 09:04 40 MG Midazolam HCl 50 ml @ 1 mls/hr Q24H IV 10/18/24 16:15 10/19/24 05:46 2 MLS/HR Fentanyl Citrate 250 ml @ 2.5 mls/hr Q24H IV 10/18/24 16:15 10/18/24 16:37 2.5 MLS/HR Norepinephrine Bitartrate 250 ml @ 3.75 mls/hr Q24H IV 10/18/24 16:15 Carvedilol 3.125 mg Q12HR PO 10/20/24 22:00 10/21/24 09:05 3.125 MG Hydralazine HCl 10 mg Q4HP PRN IV 10/20/24 11:45 10/20/24 14:16 10 MG Hydromorphone HCl 0.25 mg Q4HPRN PRN IV 10/20/24 17:00 10/21/24 04:21 0.25 MG Acetaminophen/ Hydrocodone Bitart 1 tab Q4HPRN PRN PO 10/21/24 14:30 10/21/24 14:56 1 TAB Examination General Appearance: Alert, Oriented X3, Cooperative, in mild respiratory distress HEENT: Atraumatic, PERRLA, EOMI, Mucous membrane moist/pink Respiratory: Bilateral lower zone crypts Cardiovascular: Regular rate, Normal S1, Normal S2, No murmurs, no chest wall tenderness Abdominal: Mild abdominal tenderness Extremities: No clubbing, No cyanosis, No edema, Normal pulses, No tenderness/swelling Skin: No rashes, No breakdown, No significant lesion Neuro: Normal gait, Normal speech, Strength at 5/5 X4 ext, Normal tone, Sensation intact, Cranial nerves 3-12 NL, Reflexes 2+ Psych/Mental Status: Mental status NL, Mood NL laboratory and microbiology Laboratory Tests 10/21/24 06:16 Test 10/21/24 06:16 Range/Units Serum Glucose 111 H 74-106 mg/dL Microbiology Date/Time Source Procedure Growth Status 10/18/24 15:40 Sputum Gram Stain - Final Complete 10/18/24 15:40 Sputum Respiratory Culture - Final Complete 10/16/24 09:30 Foot Right Gram Stain - Final Complete 10/16/24 09:30 Wound Culture - Final Enterobacter cloacae Stenotrophomonas maltophilia Klebsiella oxytoca Complete Labs and/or images reviewed: Labs reviewed by me, Image(s) reviewed by me Problem List/Assessment/Plan Problem List/Assessment/Plan This is a 49-year-old male with past medical history of ESRD on hemodialysis, hypertension, coronary artery disease status post CABG, diabetes type 2 presented to the hospital with abdominal pain and vomiting for the last 4 days. Admitted on 10/15, performed cholecystectomy on 10/18. Acute hypoxic respiratory failure likely due to status post cardiac arrest/postsurgery Atelectasis, likely due to status post surgery Extubated on 10/19/2024, on O2 1L via NC MRSA nares screening and sputum culture are negative Spirometry q.1 hour Breathing treatment q.6 hours p.r.n. CTA, to rule out possible pulmonary emboli S/p Cardiac arrest with ROSC coronary artery disease status post CABG ischemic cardiomyopathy heart failure with reduced ejection fraction echo shows severely dilated left ventricle, LVEF 35%, grade 2 diastolic dysfunction Continue carvedilol 3.125mg bid acute abdominal pain likely due to acute cholecystitis acute intractable nausea and vomiting likely due acute cholecystitis acute cholecystitis S/p Lap cholecystectomy, performed on 10/18 CT abdomen pelvis shows distended gallbladder with small calcified gallstones day of the bed and neck and moderate inflammatory stranding RUQ ultrasound shows gallstones with gallbladder wall thickening MRCP shows no no biliary ductal dilation, no evidence of choledocholithiasis Surgery on the board, recommended clear liquid diet Continue IV metronidazole and cefepime Continue Zofran p.r.n. for nausea, vomiting Abdominal CT scan, to look for possible bowel obstruction, since the patient did not have bowel movements since 7 days diabetic foot ulcer foot x-ray shows soft tissue swelling and no radiographic evidence osteomyelitis wound culture shows growth of Enterobacter cloacae sensitive to cefepime IV Continue IV cefepime Podiatry on the board, recommended outpatient follow up within 1 week of the discharge, for surgical intervention end-stage renal disease on dialysis on dialysis Monday Nephrology on the board uncontrolled type 2 diabetes mellitus with hyperglycemia insulin Lantus 15 units HS mild insulin sliding scale Mild hyponatremia Monitoring Hypermagnesemia, downtrending Monitoring DIET: Clear liquid diet DVT prophylax: Heparin subcutaneous 5000 units b.i.d. GI prophylaxis: Protonix Bowel regimen: Docusate Code status: Goal of care discussed for more than 22 minutes, full code DISPOSITION: Telemetry Patient's status discussed with patient and RN Case discussed with Dr. Kaiser Plan discussed with: Patient, Other (RN) My Orders My Orders Orders - ARELIS SENIORWAD RESDIENT Procedure Category Date Status Time Comprehensive LAB 10/22/24 Verified Metabolic Panel 04:00 Complete Blood Count LAB 10/22/24 Verified 04:00 Dietary Evaluation Review Comments: 1) Advance pt diet when medically feasible to a Cardiac/CCHO 60g/Renal Standard diet 2) Continue current plan of care Expected Outcomes/Goals: 1) Pt diet to advance 2) F/U in 2-3 days Date of Service: Oct 21, 2024 Billing Provider: GHAZALA HACKETT MD Common Visit Codes: [id number] INP/OBS CARE(HIGH) Secondary Visit Codes: [id number] CARE PLAN 30 MINUTES HEWADMSTEPHANIE,HEWAD RESDIENT Oct 21, 2024 15:51 GHAZALA HACKETT MD Oct 23, 2024 09:21
--- NOTE | 2024-10-21 19:45 | DVHPN2 ---
Progress Note Date Seen: Oct 21, 2024 Medical Necessity Reason Pt with a Central, PICC or Fol: No Objective vital signs Vital Sign Date Time Temp Pulse Resp B/P (MAP) Pulse Ox O2 Delivery O2 Flow Rate FiO2 10/21/24 18:00 18 95 Nasal Cannula* 2 28 10/21/24 16:48 98.6 82 138/64 (88) 98.6 Total Intake and Output 10/20/24 10/20/24 10/21/24 15:00 23:00 07:00 Intake Total 150.0 ml 364 ml 460 ml Output Total 30 ml 500 ml Balance 150.0 ml 334 ml -40 ml medications Current Medications Medications Dose Ordered Sig/Joshua Route Start Time Stop Time Status Last Admin Dose Admin Docusate Sodium 100 mg BIDPRN PRN PO 10/15/24 12:15 10/17/24 00:53 100 MG Nitroglycerin 0.4 mg Q5MINP PRN SL 10/15/24 12:15 Diagnostic Test (Pha) 1 strip Q6HR 10/15/24 18:00 10/21/24 18:35 1 STRIP Insulin Human Regular Q6HR SC 10/15/24 18:00 10/21/24 18:39 3 UNITS Dextrose 50 ml UD PRN IV 10/15/24 12:15 Metronidazole 100 ml @ 100 mls/hr Q8HR IV 10/15/24 14:00 10/21/24 13:24 100 MLS/HR Cefepime HCl 50 ml @ 12.5 mls/hr DAILY IV 10/16/24 10:00 10/21/24 09:06 12.5 MLS/HR Heparin Sodium (Porcine) 5,000 units Q12HR SC 10/16/24 22:00 10/21/24 09:12 5,000 UNITS Insulin Glargine 15 units HS SC 10/16/24 22:00 10/20/24 21:46 15 UNITS Pantoprazole Sodium 40 mg DAILY IV 10/19/24 10:00 10/21/24 09:04 40 MG Midazolam HCl 50 ml @ 1 mls/hr Q24H IV 10/18/24 16:15 10/19/24 05:46 2 MLS/HR Fentanyl Citrate 250 ml @ 2.5 mls/hr Q24H IV 10/18/24 16:15 10/18/24 16:37 2.5 MLS/HR Norepinephrine Bitartrate 250 ml @ 3.75 mls/hr Q24H IV 10/18/24 16:15 Carvedilol 3.125 mg Q12HR PO 10/20/24 22:00 10/21/24 09:05 3.125 MG Hydralazine HCl 10 mg Q4HP PRN IV 10/20/24 11:45 10/20/24 14:16 10 MG Hydromorphone HCl 0.25 mg Q4HPRN PRN IV 10/20/24 17:00 10/21/24 04:21 0.25 MG Acetaminophen/ Hydrocodone Bitart 1 tab Q4HPRN PRN PO 10/21/24 14:30 10/21/24 14:56 1 TAB laboratory and microbiology Laboratory Tests 10/21/24 06:16 Test 10/21/24 06:16 Range/Units Serum Glucose 111 H 74-106 mg/dL Microbiology Date/Time Source Procedure Growth Status 10/18/24 15:40 Sputum Gram Stain - Final Complete 10/18/24 15:40 Sputum Respiratory Culture - Final Complete 10/16/24 09:30 Foot Right Gram Stain - Final Complete 10/16/24 09:30 Wound Culture - Final Enterobacter cloacae Stenotrophomonas maltophilia Klebsiella oxytoca Complete Problem List/Assessment/Plan Problem List/Assessment/Plan AFEBRILE VSS ABD SOFT LESS TENDER WBC DOWN LFT DOWN ALKP ELEVATED BUT TRENDING DOWN WOUNDS HEALING DRAIN SEROSANGUINEOUS 40 CC CONTINUE CLOSE OBSERVATION NO BM NO FLATUS ALLOW FULL LIQUIDS MAG CITRATE INDICATED NURSE AT BEDSIDE Plan discussed with: Patient Dietary Evaluation Review Comments: 1) Advance pt diet when medically feasible to a Cardiac/CCHO 60g/Renal Standard diet 2) Continue current plan of care Expected Outcomes/Goals: 1) Pt diet to advance 2) F/U in 2-3 days AUSTYN ROJAS MD Oct 21, 2024 19:45
[2024-10-21] MEDS ORDERED: MAGNESIUM CITRATE SOLUTION 300 ML BTL PO ONE (20:00)
[2024-10-21] MEDS ORDERED: POLYETHYLENE GLYCOL 17 GM PWDR PO ONE (20:15)
[2024-10-21] MEDS: POLYETHYLENE GLYCOL 17 GM PWDR PO ONE (20:24)
--- NOTE | 2024-10-21 20:24 | DVH ---
EXAM: CT CT ANGIO CHEST CONTRAST History: rule out PE Comparison Study: None available TECHNIQUE: A digital correctional guard image was obtained. During the uneventful, intravenous administration of c ontrast material, multislice data acquisition was obtained through the chest. 3-D postprocessing is performed by technologist including MIP imaging Radiation Dose : CTDI vol 32.53 mGy, DLP 842.46 mGy*cm. Findings: Lungs: Bilateral lower lobe atelectasis. Pleura: Unremarkable Heart/Great vessels: The visualized heart is unremarkable. No cardiomegaly or pericardial effusion. N o pulmonary embolism, aneurysm, or dissection. Severe coronary atherosclerosis versus stents. Mediastinum: Unremarkable Soft tissues/Bones: Median sternotomy wires. Cholecystectomy. The partially visualized upper abdomen is within normal limits. Impression: 1. No evidence of pulmonary embolism, aortic aneurysm, or dissection. 2. Bilateral lower lobe atelectasis.
--- NOTE | 2024-10-21 20:26 | DVH ---
CT SCAN ABDOMEN AND PELVIS WITHOUT CONTRAST CLINICAL HISTORY: constipation no bowel movement. TECHNIQUE: Helical axial images are obtained from the lung bases through the pelvis without oral cont rast. No intravenous contrast was administered. Coronal and sagittal reformatted images were generate d from thin section reconstructions. One or more of the following radiation dose reduction techniques were used for this examination: automated exposure control, adjustment of the mA and/or kV according to patient size, use of iterative reconstruction technique. COMPARISON: CT CT AB PEL WO CON-NO ORAL OR IV on DOS: 10/15/24 FINDINGS: LOWER THORAX: Scattered atelectasis/ scarring in the imaged lung bases. Visualized heart is enlarged. Coronary art franchesca calcifications. ABDOMEN AND PELVIS: Evaluation of visceral and vascular structures is limited due to lack of contrast administration. Patient is status post cholecystectomy. Right abdominal surgical drain terminates in the gallbladder fossa. No sizable, loculated fluid collections identified at this time. No discrete hepatic lesions. The spleen, pancreas and adrenals appear grossly unremarkable. No evidence of bowel obstruction. Small to moderate volume stool scattered throughout the colon and r ectum. Scattered foci of pneumoperitoneum may be from recent surgery. Normal caliber appendix. No sizable bladder calculus. No destructive osseous lesions identified. Degenerative changes predominantly at L5-S1. IMPRESSION: Postsurgical changes status post cholecystectomy. No evidence of bowel obstruction at this time.
[2024-10-22] VITALS (8 sets, daily range): BP systolic 114–169; BP diastolic 42–64; PULSE 75–87; RESP 16–20; TEMP 97.6–99.4; O2SAT 94–95
[2024-10-22 06:33] LABS: Alanine Aminotransferase < 9 U/L (7-40); Albumin 3.2 g/dL (3.2-4.8); Alkaline Phosphatase 158 U/L (46-116); Anion Gap 13 (5-15); Aspartate Aminotransferase 15 U/L (13-40); BUN/Creatinine Ratio 6.9 (10.0-20.0); Bilirubin, Total 0.4 mg/dL (0.2-1.0); Blood Urea Nitrogen 61 mg/dL (9-23); Calcium 8.2 mg/dL (8.7-10.4); Carbon Dioxide 23 mmol/L (20-31); Chloride 96 mmol/L (98-107); Glucose 137 mg/dL (74-106); Potassium 3.8 mmol/L (3.5-5.1); Sodium 132 mmol/L (136-145); Total Protein 6.1 g/dL (5.7-8.2)
[2024-10-22 06:35] LABS: Hematocrit 28.9 % (41.0-53.0); Hemoglobin 9.5 g/dL (13.5-17.5); Mean Corpuscular Hemoglobin 30.8 pg (28.0-32.0); Mean Corpuscular Volume 93.3 fL (80.0-100.0); Platelet Count (auto) 268 10^3/uL (140-450); Red Cell Distribution Width 15.5 % (11.8-14.3); White Blood Cell 7.2 10^3/uL (4.4-10.8)
[2024-10-22 08:04] LABS: Basophils % (manual) 0 (0.0-2.0); Blast Cells 0; Myelocytes % 0; Promyelocytes % 0; Reactive Lymphocytes 0
[2024-10-22 09:20] LABS: Band Neutrophils % (manual) 1; Eosinophils % (manual) 5 (0-7); Lymphocytes % (manual) 6 (10.0-50.0); Metamyelocytes % 1; Monocytes % (manual) 10 (0-12); Platelet Estimate Adequate
--- NOTE | 2024-10-22 10:18 | DVHPN2 ---
Progress Note - Dictate Date Seen: Oct 21, 2024 Medical Necessity Reason Pt with a Central, PICC or Fol: No Subjective Patient seen and examined at bedside. S/p extubation, on supplemental oxygen Overnight events reviewed. vital signs Vital Sign Date Time Temp Pulse Resp B/P (MAP) Pulse Ox O2 Delivery O2 Flow Rate FiO2 10/22/24 09:05 97.7 75 19 144/53 (83) 94 97.7 10/21/24 20:00 Nasal Cannula* 2 28 Total Intake and Output 10/21/24 10/21/24 10/22/24 15:00 23:00 07:00 Intake Total 150 ml 500 ml 620 ml Output Total 20 ml 50 ml Balance 130 ml 450 ml 620 ml medications Current Medications Medications Dose Ordered Sig/Joshua Route Start Time Stop Time Status Last Admin Dose Admin Docusate Sodium 100 mg BIDPRN PRN PO 10/15/24 12:15 10/17/24 00:53 100 MG Nitroglycerin 0.4 mg Q5MINP PRN SL 10/15/24 12:15 Diagnostic Test (Pha) 1 strip Q6HR 10/15/24 18:00 10/22/24 05:34 1 STRIP Insulin Human Regular Q6HR SC 10/15/24 18:00 10/22/24 05:40 3 UNITS Dextrose 50 ml UD PRN IV 10/15/24 12:15 Metronidazole 100 ml @ 100 mls/hr Q8HR IV 10/15/24 14:00 10/22/24 05:30 100 MLS/HR Cefepime HCl 50 ml @ 12.5 mls/hr DAILY IV 10/16/24 10:00 10/22/24 08:37 12.5 MLS/HR Heparin Sodium (Porcine) 5,000 units Q12HR SC 10/16/24 22:00 10/22/24 08:45 5,000 UNITS Insulin Glargine 15 units HS SC 10/16/24 22:00 10/21/24 23:41 15 UNITS Pantoprazole Sodium 40 mg DAILY IV 10/19/24 10:00 10/22/24 08:42 40 MG Carvedilol 3.125 mg Q12HR PO 10/20/24 22:00 10/21/24 21:39 3.125 MG Hydralazine HCl 10 mg Q4HP PRN IV 10/20/24 11:45 10/20/24 14:16 10 MG Hydromorphone HCl 0.25 mg Q4HPRN PRN IV 10/20/24 17:00 10/21/24 21:58 0.25 MG Acetaminophen/ Hydrocodone Bitart 1 tab Q4HPRN PRN PO 10/21/24 14:30 10/22/24 04:35 1 TAB objective Gen.: Patient lying in bed in no apparent distress. On supplemental oxygen. Head: Normocephalic, atraumatic. Eyes: EOMI/PERRLA. Ears: Normal hearing. Normal anatomy. Neck/trachea: Trachea midline, supple. Nose: Normal external anatomy. Mouth: Moist mucous membranes. Chest: Decreased air entry bilaterally. No wheezing or rhonchi. Cardiovascular: Positive S1, positive S2. Regular rate and rhythm. Abdomen: Positive bowel sounds in all 4 quadrants. Soft, non-tender, non- distended. : Deferred. Rectal: Deferred. Skin: Warm, dry. Intact. Extremities: 2+ radial pulses bilaterally. No lower extremity edema. Neuro: Awake, alert, oriented x3. No gross motor or sensory deficits. Cranial nerves II through XII intact. Gait not assessed. laboratory and microbiology Laboratory Tests 10/22/24 06:00 Test 10/22/24 06:00 Range/Units Serum Glucose 137 H 74-106 mg/dL Assessment/Plan Impression: Acute hypoxic respiratory failure Status post cardiac arrest Return of spontaneous circulation Status post laparoscopic cholecystectomy with lysis of adhesions CAD status post CABG CHF Diabetes mellitus type 2 End-stage renal disease on hemodialysis Obesity with a BMI of 39 Events: S/p extubation On supplemental oxygen, 2 LPM NC Taper O2 as tolerated ABG reviewed, compensated. CT angio shows no evidence of pulmonary embolism, aortic aneurysm or dissection. Bilateral lower lobe atelectasis. Continue antibiotics Incentive spirometry Pain control Avoid oversedation Labs and imaging reviewed. Rest of plan as noted below. Plan: S/p extubation on 10/19/24 On supplemental oxygen, 2 LPM NC Taper O2 as tolerated Off sedation. Off pressors, hemodynamically stable. Continue antibiotics. F/u cultures. Hemodialysis per nephrology Monitor renal function Monitor electrolytes. Supplement as necessary. Nephrology recommendations appreciated. Nutritional support. Monitor hemoglobin Right foot wound Care Accu-Cheks, insulin sliding scale. GI prophylaxis-Protonix DVT prophylaxis. SCDs Prognosis: Poor given multiple comorbidities. Rest of plan per hospitalist and other consultants. Thank you Dr. Green for allowing me to participate in this patient's care. Further recommendations will depend on patient's clinical course. Please do not hesitate to contact me if you have any questions or concerns. This medical document was created using an electronic medical record system with [employer] dictation system. Although this document has been carefully reviewed, there may still be some phonetic and typographical errors. These areas are purely typographical due to imperfections of the software programs, and do not reflect any compromise in the patient's medical care. Dietary Evaluation Review Comments: 1) Advance pt diet when medically feasible to a Cardiac/CCHO 60g/Renal Standard diet 2) Continue current plan of care Expected Outcomes/Goals: 1) Pt diet to advance 2) F/U in 2-3 days Plan discussed with: Patient, Other (LAST Gallardo) FRANCHESKA PEREZ MD Oct 22, 2024 10:18
--- NOTE | 2024-10-22 13:00 | DVHPN2 ---
Progress Note - Dictate Date Seen: Oct 22, 2024 Medical Necessity Reason Pt with a Central, PICC or Fol: No Subjective Today patient stable mild soreness in the surgical area vital signs Vital Sign Date Time Temp Pulse Resp B/P (MAP) Pulse Ox O2 Delivery O2 Flow Rate FiO2 10/22/24 12:45 97.9 78 18 137/42 (73) 94 97.9 10/22/24 08:00 Nasal Cannula* 2 28 Total Intake and Output 10/21/24 10/21/24 10/22/24 15:00 23:00 07:00 Intake Total 150 ml 500 ml 620 ml Output Total 20 ml 50 ml Balance 130 ml 450 ml 620 ml medications Current Medications Medications Dose Ordered Sig/Joshua Route Start Time Stop Time Status Last Admin Dose Admin Docusate Sodium 100 mg BIDPRN PRN PO 10/15/24 12:15 10/17/24 00:53 100 MG Nitroglycerin 0.4 mg Q5MINP PRN SL 10/15/24 12:15 Diagnostic Test (Pha) 1 strip Q6HR 10/15/24 18:00 10/22/24 05:34 1 STRIP Insulin Human Regular Q6HR SC 10/15/24 18:00 10/22/24 05:40 3 UNITS Dextrose 50 ml UD PRN IV 10/15/24 12:15 Metronidazole 100 ml @ 100 mls/hr Q8HR IV 10/15/24 14:00 10/22/24 05:30 100 MLS/HR Cefepime HCl 50 ml @ 12.5 mls/hr DAILY IV 10/16/24 10:00 10/22/24 08:37 12.5 MLS/HR Heparin Sodium (Porcine) 5,000 units Q12HR SC 10/16/24 22:00 10/22/24 08:45 5,000 UNITS Insulin Glargine 15 units HS SC 10/16/24 22:00 10/21/24 23:41 15 UNITS Pantoprazole Sodium 40 mg DAILY IV 10/19/24 10:00 10/22/24 08:42 40 MG Carvedilol 3.125 mg Q12HR PO 10/20/24 22:00 10/21/24 21:39 3.125 MG Hydralazine HCl 10 mg Q4HP PRN IV 10/20/24 11:45 10/20/24 14:16 10 MG Hydromorphone HCl 0.25 mg Q4HPRN PRN IV 10/20/24 17:00 10/21/24 21:58 0.25 MG Acetaminophen/ Hydrocodone Bitart 1 tab Q4HPRN PRN PO 10/21/24 14:30 10/22/24 04:35 1 TAB objective HEENT: No evidence of JVD, no oral ulcers. Pulmonary: Lungs are clear on auscultation bilaterally Cardiovascular S1-S2, no S3 or S4 Abdomen: Bowel sounds positive, soft no rebound tenderness Skin: No rash Neurological: Alert, oriented, no focal weakness MATY drain in place laboratory and microbiology Laboratory Tests 10/22/24 06:00 Test 10/22/24 06:00 Range/Units Serum Glucose 137 H 74-106 mg/dL Assessment/Plan Assessment: End-stage kidney disease on hemodialysis Status post cardiac arrest Acute cholecystitis status post laparoscopic cholecystectomy Diabetic foot ulcer Coronary artery disease status post CABG Ischemic cardiomyopathy Type 2 diabetes Hypertension Obesity Recommendations: Hemodialysis on TTS schedule. Add Lasix p.o. on non dialysis day Continue with IV antibiotics. Downgraded to telemetry. Fluid restriction Analgesics Okay to discharge from the Nephrology perspective when cleared by surgery. Thank you very much for allowing us to participate in the care of this patient Dietary Evaluation Review Comments: 1) Advance pt diet when medically feasible to a Cardiac/CCHO 60g/Renal Standard diet 2) Continue current plan of care Expected Outcomes/Goals: 1) Pt diet to advance 2) F/U in 2-3 days Plan discussed with: Patient JAY JAY QUINTANA MD Oct 22, 2024 13:00
--- NOTE | 2024-10-22 14:13 | DVHPN2 ---
Progress Note Date Seen: Oct 22, 2024 Medical Necessity Reason Pt with a Central, PICC or Fol: No Objective vital signs Vital Sign Date Time Temp Pulse Resp B/P (MAP) Pulse Ox O2 Delivery O2 Flow Rate FiO2 10/22/24 12:45 97.9 78 18 137/42 (73) 94 97.9 10/22/24 08:00 Nasal Cannula* 2 28 Total Intake and Output 10/21/24 10/21/24 10/22/24 15:00 23:00 07:00 Intake Total 150 ml 500 ml 620 ml Output Total 20 ml 50 ml Balance 130 ml 450 ml 620 ml medications Current Medications Medications Dose Ordered Sig/Joshua Route Start Time Stop Time Status Last Admin Dose Admin Docusate Sodium 100 mg BIDPRN PRN PO 10/15/24 12:15 10/17/24 00:53 100 MG Nitroglycerin 0.4 mg Q5MINP PRN SL 10/15/24 12:15 Diagnostic Test (Pha) 1 strip Q6HR 10/15/24 18:00 10/22/24 13:59 1 STRIP Insulin Human Regular Q6HR SC 10/15/24 18:00 10/22/24 14:00 4 UNITS Dextrose 50 ml UD PRN IV 10/15/24 12:15 Metronidazole 100 ml @ 100 mls/hr Q8HR IV 10/15/24 14:00 10/22/24 14:05 100 MLS/HR Cefepime HCl 50 ml @ 12.5 mls/hr DAILY IV 10/16/24 10:00 10/22/24 08:37 12.5 MLS/HR Heparin Sodium (Porcine) 5,000 units Q12HR SC 10/16/24 22:00 10/22/24 08:45 5,000 UNITS Insulin Glargine 15 units HS SC 10/16/24 22:00 10/21/24 23:41 15 UNITS Pantoprazole Sodium 40 mg DAILY IV 10/19/24 10:00 10/22/24 08:42 40 MG Carvedilol 3.125 mg Q12HR PO 10/20/24 22:00 10/21/24 21:39 3.125 MG Hydralazine HCl 10 mg Q4HP PRN IV 10/20/24 11:45 10/20/24 14:16 10 MG Hydromorphone HCl 0.25 mg Q4HPRN PRN IV 10/20/24 17:00 10/21/24 21:58 0.25 MG Acetaminophen/ Hydrocodone Bitart 1 tab Q4HPRN PRN PO 10/21/24 14:30 10/22/24 14:04 1 TAB Furosemide 80 mg MWF PO 10/23/24 10:00 laboratory and microbiology Laboratory Tests 10/22/24 06:00 Test 10/22/24 06:00 Range/Units Serum Glucose 137 H 74-106 mg/dL Microbiology Date/Time Source Procedure Growth Status 10/18/24 15:40 Sputum Gram Stain - Final Complete 10/18/24 15:40 Sputum Respiratory Culture - Final Complete 10/16/24 09:30 Foot Right Gram Stain - Final Complete 10/16/24 09:30 Wound Culture - Final Enterobacter cloacae Stenotrophomonas maltophilia Klebsiella oxytoca Complete Problem List/Assessment/Plan Problem List/Assessment/Plan AFEBRILE VSS ABD SOFT LESS TENDER WBC DOWN LFT DOWN ALKP ELEVATED BUT TRENDING DOWN WOUNDS HEALING DRAIN SEROSANGUINEOUS 10 CC CONTINUE CLOSE OBSERVATION NO BM FLATUS + ALLOW FULL LIQUIDS MAG CITRATE HELD ON DIALYSIS LACTULOSE GIVEN NURSE AT BEDSIDE Plan discussed with: Patient My Orders My Orders Orders - AUSTYN ROJAS MD Procedure Category Date Status Time Full Liq Diet DIET 10/22/24 Transmitted Breakfast Dietary Evaluation Review Comments: 1) Advance pt diet when medically feasible to a Cardiac/CCHO 60g/Renal Standard diet 2) Continue current plan of care Expected Outcomes/Goals: 1) Pt diet to advance 2) F/U in 2-3 days AUSTYN ROJAS MD Oct 22, 2024 14:13
--- NOTE | 2024-10-22 15:28 | DVHPNRES ---
Progress Note Date Seen: Oct 22, 2024 Resident Creating Document: DYLLAN SENIOR RESDIENT Medical Necessity Reason Pt with a Central, PICC or Fol: No Subjective Review of Systems Patient is a 49-year-old male with a past medical history as described below came to the ED with a chief complaint of abdominal pain for the last 4 days. Patient reported that on the past Monday he started having abdominal pain in the epigastric and the right upper quadrant associated with nausea and multiple episodes of vomiting which were mostly yellowish frothy liquid but no associated blood. Patient [place] hospital there where he got medication for pain relief but as he was not feeling well he came back the next 2 days he did not have an appetite and could only tolerate water and only small amount of liquids. Patient has a history of end- stage renal disease and is on dialysis Monday. He went to the dialysis yesterday and while he was there he started having severe abdominal pain which was not tolerable, had to stop dialysis and was brought in by ambulance to the hospital. Past medical history: End-stage renal disease on dialysis TTS, hypertension, CABG, type 2 diabetes mellitus Past surgical history: CABG Social history: Denies smoking, alcohol, drug use Home medications: Carvedilol 50 mg b.i.d., Entresto 02/23/2026 once daily, isosorbide mononitrate 60 mg b.i.d., insulin Humalog and Humulin, phosphorus binders, hydralazine 100 mg t.i.d., atorvastatin 80 mg, aspirin 81 mg Today, 10/22, patient seen and examined at the bedside. Patient is still complained of abdominal pain and shortness of bread. Patient reports: No new complaints Objective vital signs Vital Sign Date Time Temp Pulse Resp B/P (MAP) Pulse Ox O2 Delivery O2 Flow Rate FiO2 10/22/24 12:45 97.9 78 18 137/42 (73) 94 97.9 10/22/24 08:00 Nasal Cannula* 2 28 Total Intake and Output 10/21/24 10/21/24 10/22/24 15:00 23:00 07:00 Intake Total 150 ml 500 ml 620 ml Output Total 20 ml 50 ml Balance 130 ml 450 ml 620 ml medications Current Medications Medications Dose Ordered Sig/Joshua Route Start Time Stop Time Status Last Admin Dose Admin Docusate Sodium 100 mg BIDPRN PRN PO 10/15/24 12:15 10/17/24 00:53 100 MG Nitroglycerin 0.4 mg Q5MINP PRN SL 10/15/24 12:15 Diagnostic Test (Pha) 1 strip Q6HR 10/15/24 18:00 10/22/24 13:59 1 STRIP Insulin Human Regular Q6HR SC 10/15/24 18:00 10/22/24 14:00 4 UNITS Dextrose 50 ml UD PRN IV 10/15/24 12:15 Metronidazole 100 ml @ 100 mls/hr Q8HR IV 10/15/24 14:00 10/22/24 14:05 100 MLS/HR Cefepime HCl 50 ml @ 12.5 mls/hr DAILY IV 10/16/24 10:00 10/22/24 08:37 12.5 MLS/HR Heparin Sodium (Porcine) 5,000 units Q12HR SC 10/16/24 22:00 10/22/24 08:45 5,000 UNITS Insulin Glargine 15 units HS SC 10/16/24 22:00 10/21/24 23:41 15 UNITS Pantoprazole Sodium 40 mg DAILY IV 10/19/24 10:00 10/22/24 08:42 40 MG Carvedilol 3.125 mg Q12HR PO 10/20/24 22:00 10/21/24 21:39 3.125 MG Hydralazine HCl 10 mg Q4HP PRN IV 10/20/24 11:45 10/20/24 14:16 10 MG Hydromorphone HCl 0.25 mg Q4HPRN PRN IV 10/20/24 17:00 10/21/24 21:58 0.25 MG Acetaminophen/ Hydrocodone Bitart 1 tab Q4HPRN PRN PO 10/21/24 14:30 10/22/24 14:04 1 TAB Furosemide 80 mg MWF PO 10/23/24 10:00 Examination General Appearance: Alert, Oriented X3, Cooperative, in mild respiratory distress HEENT: Atraumatic, PERRLA, EOMI, Mucous membrane moist/pink Respiratory: Bilateral lower zone crypts Cardiovascular: Regular rate, Normal S1, Normal S2, No murmurs, no chest wall tenderness Abdominal: Mild abdominal tenderness Extremities: No clubbing, No cyanosis, No edema, Normal pulses, No tenderness/swelling Skin: No rashes, No breakdown, No significant lesion Neuro: Normal gait, Normal speech, Strength at 5/5 X4 ext, Normal tone, Sensation intact, Cranial nerves 3-12 NL, Reflexes 2+ Psych/Mental Status: Mental status NL, Mood NL laboratory and microbiology Laboratory Tests 10/22/24 06:00 Test 10/22/24 06:00 Range/Units Serum Glucose 137 H 74-106 mg/dL Microbiology Date/Time Source Procedure Growth Status 10/18/24 15:40 Sputum Gram Stain - Final Complete 10/18/24 15:40 Sputum Respiratory Culture - Final Complete 10/16/24 09:30 Foot Right Gram Stain - Final Complete 10/16/24 09:30 Wound Culture - Final Enterobacter cloacae Stenotrophomonas maltophilia Klebsiella oxytoca Complete Labs and/or images reviewed: Labs reviewed by me, Image(s) reviewed by me Problem List/Assessment/Plan Problem List/Assessment/Plan This is a 49-year-old male with past medical history of ESRD on hemodialysis, hypertension, coronary artery disease status post CABG, diabetes type 2 presented to the hospital with abdominal pain and vomiting for the last 4 days. Admitted on 10/15, performed cholecystectomy on 10/18. Acute hypoxic respiratory failure likely due to status post cardiac arrest/postsurgery Atelectasis, likely due to status post surgery Ruled out pulmonary emboli Extubated on 10/19/2024 CTA, shows no pulmonary emboli MRSA nares screening and sputum culture are negative Spirometry q.1 hour Breathing treatment q.6 hours p.r.n. Physical therapy evaluation S/p Cardiac arrest with ROSC coronary artery disease status post CABG ischemic cardiomyopathy heart failure with reduced ejection fraction echo shows severely dilated left ventricle, LVEF 35%, grade 2 diastolic dysfunction Continue carvedilol 3.125mg bid acute abdominal pain likely due to acute cholecystitis acute intractable nausea and vomiting likely due acute cholecystitis acute cholecystitis S/p Lap cholecystectomy, performed on 10/18 CT abdomen pelvis shows distended gallbladder with small calcified gallstones day of the bed and neck and moderate inflammatory stranding RUQ ultrasound shows gallstones with gallbladder wall thickening MRCP shows no no biliary ductal dilation, no evidence of choledocholithiasis Surgery on the board, recommended clear liquid diet Continue IV metronidazole and cefepime Continue Zofran p.r.n. for nausea, vomiting Abdominal CT scan on 10/22, shows no obstruction diabetic foot ulcer foot x-ray shows soft tissue swelling and no radiographic evidence osteomyelitis wound culture shows growth of Enterobacter cloacae sensitive to cefepime IV Continue IV cefepime Podiatry on the board, recommended outpatient follow up within 1 week of the discharge, for surgical intervention end-stage renal disease on dialysis on dialysis Monday Nephrology on the board uncontrolled type 2 diabetes mellitus with hyperglycemia insulin Lantus 15 units HS mild insulin sliding scale Mild hyponatremia Monitoring Hypermagnesemia, downtrending Monitoring DIET: Clear liquid diet DVT prophylax: Heparin subcutaneous 5000 units b.i.d. GI prophylaxis: Protonix Bowel regimen: Docusate Code status: Goal of care discussed for more than 22 minutes, full code DISPOSITION: Med surg Patient's status discussed with patient and RN Case discussed with Dr. Rincon Plan discussed with: Patient, Other My Orders My Orders Orders - DYLLAN SENIOR RESDIJAZ Procedure Category Date Status Time Pt Request For Service PT 10/22/24 Logged 07:09 Dietary Evaluation Review Comments: 1) Advance pt diet when medically feasible to a Cardiac/[facility]HO 60g/Renal Standard diet 2) Continue current plan of care Expected Outcomes/Goals: 1) Pt diet to advance 2) F/U in 2-3 days Date of Service: Oct 22, 2024 Billing Provider: PENNIE RINCON MD Common Visit Codes: [id number] INP/OBS CARE(HIGH) DYLLAN SENIOR RESDIENT Oct 22, 2024 15:28 PENNIE RINCON MD Oct 22, 2024 18:15
[2024-10-22] MEDS: LACTULOSE 20Gm/30ML SOLN PO SCH (17:43)
--- NOTE | 2024-10-22 20:37 | DVHPN2 ---
Progress Note - Dictate Date Seen: Oct 22, 2024 Medical Necessity Reason Pt with a Central, PICC or Fol: No Subjective Patient seen and examined at bedside. Breathing comfortably on room air. Overnight events reviewed. vital signs Vital Sign Date Time Temp Pulse Resp B/P (MAP) Pulse Ox O2 Delivery O2 Flow Rate FiO2 10/22/24 20:00 78 20 95 Nasal Cannula* 2 28 10/22/24 17:01 98.1 130/53 (78) 98.1 Total Intake and Output 10/21/24 10/21/24 10/22/24 15:00 23:00 07:00 Intake Total 150 ml 500 ml 620 ml Output Total 20 ml 50 ml Balance 130 ml 450 ml 620 ml medications Current Medications Medications Dose Ordered Sig/Joshua Route Start Time Stop Time Status Last Admin Dose Admin Docusate Sodium 100 mg BIDPRN PRN PO 10/15/24 12:15 10/17/24 00:53 100 MG Nitroglycerin 0.4 mg Q5MINP PRN SL 10/15/24 12:15 Diagnostic Test (Pha) 1 strip Q6HR 10/15/24 18:00 10/22/24 18:15 1 STRIP Insulin Human Regular Q6HR SC 10/15/24 18:00 10/22/24 18:16 4 UNITS Dextrose 50 ml UD PRN IV 10/15/24 12:15 Metronidazole 100 ml @ 100 mls/hr Q8HR IV 10/15/24 14:00 10/22/24 14:05 100 MLS/HR Cefepime HCl 50 ml @ 12.5 mls/hr DAILY IV 10/16/24 10:00 10/22/24 08:37 12.5 MLS/HR Heparin Sodium (Porcine) 5,000 units Q12HR SC 10/16/24 22:00 10/22/24 08:45 5,000 UNITS Insulin Glargine 15 units HS SC 10/16/24 22:00 10/21/24 23:41 15 UNITS Pantoprazole Sodium 40 mg DAILY IV 10/19/24 10:00 10/22/24 08:42 40 MG Carvedilol 3.125 mg Q12HR PO 10/20/24 22:00 10/21/24 21:39 3.125 MG Hydralazine HCl 10 mg Q4HP PRN IV 10/20/24 11:45 10/20/24 14:16 10 MG Hydromorphone HCl 0.25 mg Q4HPRN PRN IV 10/20/24 17:00 10/21/24 21:58 0.25 MG Acetaminophen/ Hydrocodone Bitart 1 tab Q4HPRN PRN PO 10/21/24 14:30 10/22/24 14:04 1 TAB Furosemide 80 mg MWF PO 10/23/24 10:00 Lactulose 30 ml QID PO 10/22/24 18:00 objective Gen.: Patient lying in bed in no apparent distress. Breathing on room air. Head: Normocephalic, atraumatic. Eyes: EOMI/PERRLA. Ears: Normal hearing. Normal anatomy. Neck/trachea: Trachea midline, supple. Nose: Normal external anatomy. Mouth: Moist mucous membranes. Chest: Decreased air entry bilaterally. No wheezing or rhonchi. Cardiovascular: Positive S1, positive S2. Regular rate and rhythm. Abdomen: Positive bowel sounds in all 4 quadrants. Soft, non-tender, non- distended. : Deferred. Rectal: Deferred. Skin: Warm, dry. Intact. Extremities: 2+ radial pulses bilaterally. No lower extremity edema. Neuro: Awake, alert, oriented x3. No gross motor or sensory deficits. Cranial nerves II through XII intact. Gait not assessed. laboratory and microbiology Laboratory Tests 10/22/24 06:00 Test 10/22/24 06:00 Range/Units Serum Glucose 137 H 74-106 mg/dL Assessment/Plan Impression: Acute hypoxic respiratory failure Status post cardiac arrest Return of spontaneous circulation Status post laparoscopic cholecystectomy with lysis of adhesions CAD status post CABG CHF Diabetes mellitus type 2 End-stage renal disease on hemodialysis Obesity with a BMI of 39 Events: Breathing on room air No respiratory distress. Assess for peripheral access. Recommend to remove central line as soon as possible. Hemodialysis per Nephrology Continue antibiotics Pain control Avoid oversedation Labs and imaging reviewed. Rest of plan as noted below. Plan: S/p extubation on 10/19/24 Supplemental oxygen PRN Titrate to keep O2 sats above 92%. Off sedation. Off pressors, hemodynamically stable. Continue antibiotics. F/u cultures. Hemodialysis per nephrology Monitor renal function Monitor electrolytes. Supplement as necessary. Nephrology recommendations appreciated. Nutritional support. Monitor hemoglobin Right foot wound Care Accu-Cheks, insulin sliding scale. GI prophylaxis-Protonix DVT prophylaxis. SCDs Prognosis: Poor given multiple comorbidities. Rest of plan per hospitalist and other consultants. Thank you Dr. Green for allowing me to participate in this patient's care. Further recommendations will depend on patient's clinical course. Please do not hesitate to contact me if you have any questions or concerns. This medical document was created using an electronic medical record system with [employer] dictation system. Although this document has been carefully reviewed, there may still be some phonetic and typographical errors. These areas are purely typographical due to imperfections of the software programs, and do not reflect any compromise in the patient's medical care. Dietary Evaluation Review Comments: 1) Advance pt diet when medically feasible to a Cardiac/CCHO 60g/Renal Standard diet 2) Continue current plan of care Expected Outcomes/Goals: 1) Pt diet to advance 2) F/U in 2-3 days Plan discussed with: Patient, Other (LAST Gallardo) FRANCHESKA PEREZ MD Oct 22, 2024 20:37
[2024-10-22] MEDS: EPOETIN ALFA-EPBX 4,000 UNIT/ML VIAL SC ONE (23:31)
[2024-10-23 01:00] VITALS: BP 157/45; PULSE 87; RESP 18; TEMP 99.2; O2SAT 94
[2024-10-23 04:58] VITALS: BP 122/37; PULSE 84; RESP 19; TEMP 99.5; O2SAT 92
[2024-10-23] MEDS: IOHEXOL 350 MG/ML 100ML IJ ONE (07:29)
[2024-10-23] MEDS: SODIUM CHL 0.9% 1000 ML BAG XX ONE (07:30)
[2024-10-23 08:31] VITALS: BP 134/36; PULSE 77; RESP 17; TEMP 97.8; O2SAT 93
[2024-10-23] MEDS: FUROSEMIDE 40 MG TAB PO SCH (10:10)
[2024-10-23] MEDS: FLEET ENEMA(ADULT) 135 ML PR ONE (10:30)
--- NOTE | 2024-10-23 12:05 | DVHPN2 ---
Progress Note - Dictate Date Seen: Oct 23, 2024 Medical Necessity Reason Pt with a Central, PICC or Fol: No Subjective The patient no new complaints. He tolerated well dialysis yesterday with no acute issues. vital signs Vital Sign Date Time Temp Pulse Resp B/P (MAP) Pulse Ox O2 Delivery O2 Flow Rate FiO2 10/23/24 10:11 77 134/36 10/23/24 10:10 17 10/23/24 08:31 97.8 93 97.8 10/23/24 08:00 Nasal Cannula* 2 28 Total Intake and Output 10/22/24 10/22/24 10/23/24 15:00 23:00 07:00 Intake Total 50 ml 940 ml 550 ml Output Total 600 ml 500 ml Balance 50 ml 340 ml 50 ml medications Current Medications Medications Dose Ordered Sig/Joshua Route Start Time Stop Time Status Last Admin Dose Admin Docusate Sodium 100 mg BIDPRN PRN PO 10/15/24 12:15 10/17/24 00:53 100 MG Nitroglycerin 0.4 mg Q5MINP PRN SL 10/15/24 12:15 Diagnostic Test (Pha) 1 strip Q6HR 10/15/24 18:00 10/23/24 05:45 1 STRIP Insulin Human Regular Q6HR SC 10/15/24 18:00 10/23/24 05:52 2 UNITS Dextrose 50 ml UD PRN IV 10/15/24 12:15 Metronidazole 100 ml @ 100 mls/hr Q8HR IV 10/15/24 14:00 10/23/24 05:44 100 MLS/HR Cefepime HCl 50 ml @ 12.5 mls/hr DAILY IV 10/16/24 10:00 10/23/24 10:09 12.5 MLS/HR Heparin Sodium (Porcine) 5,000 units Q12HR SC 10/16/24 22:00 10/23/24 10:17 5,000 UNITS Insulin Glargine 15 units HS SC 10/16/24 22:00 10/22/24 23:44 15 UNITS Pantoprazole Sodium 40 mg DAILY IV 10/19/24 10:00 10/23/24 10:09 40 MG Carvedilol 3.125 mg Q12HR PO 10/20/24 22:00 10/23/24 10:11 3.125 MG Hydralazine HCl 10 mg Q4HP PRN IV 10/20/24 11:45 10/20/24 14:16 10 MG Hydromorphone HCl 0.25 mg Q4HPRN PRN IV 10/20/24 17:00 10/23/24 10:10 0.25 MG Acetaminophen/ Hydrocodone Bitart 1 tab Q4HPRN PRN PO 10/21/24 14:30 10/22/24 23:50 1 TAB Furosemide 80 mg MWF PO 10/23/24 10:00 10/23/24 10:10 80 MG Lactulose 30 ml QID PO 10/22/24 18:00 10/23/24 05:44 30 ML objective HEENT: No evidence of JVD, no oral ulcers. Pulmonary: Lungs are clear on auscultation bilaterally Cardiovascular S1-S2, no S3 or S4 Abdomen: Bowel sounds positive, soft no rebound tenderness Skin: No rash Neurological: Alert, oriented, no focal weakness MATY drain in place laboratory and microbiology Test 10/23/24 11:52 Range/Units Serum Glucose Pending Assessment/Plan Assessment: End-stage kidney disease on hemodialysis Status post cardiac arrest Acute cholecystitis status post laparoscopic cholecystectomy Diabetic foot ulcer Coronary artery disease status post CABG Ischemic cardiomyopathy Type 2 diabetes Hypertension Obesity Recommendations: Hemodialysis on TTS schedule. Continue Lasix p.o. on non dialysis day Continue with IV antibiotics. Fluid restriction Analgesics Okay to discharge from the Nephrology perspective when cleared by surgery. Thank you very much for allowing us to participate in the care of this patient Dietary Evaluation Review Comments: 1) Advance pt diet when medically feasible to a Cardiac/CCHO 60g/Renal Standard diet 2) Continue current plan of care Expected Outcomes/Goals: 1) Pt diet to advance 2) F/U in 2-3 days Plan discussed with: Patient JAY JAY QUINTANA MD Oct 23, 2024 12:05
[2024-10-23 12:22] LABS: Basophils # (auto) 0.1 10 ^3/uL (0-0.2); Basophils % (auto) 0.7 % (0.0-2.0); Eosinophils # (auto) 0.3 10 ^3/uL (0-0.8); Eosinophils % (auto) 3.3 % (0.0-7.0); Hematocrit 33.1 % (41.0-53.0); Lymphocytes # (auto) 1.1 10 ^3/uL (0.4-5.4); Mean Corpuscular Hemoglobin 30.9 pg (28.0-32.0); Mean Corpuscular Hgb Conc. 33.3 g/dL (32.0-36.0); Monocytes # (auto) 0.8 10 ^3/uL (0-1.3); Monocytes % (auto) 8.9 % (0.0-12.0); Neutrophils # (auto) 6.3 10 ^3/uL (1.6-8.6); Neutrophils % (auto) 74.1 % (37.0-80.0); Nucleated Red Blood Cells % 0.1 %; Platelet Count (auto) 387 10^3/uL (140-450); Red Blood Cells 3.56 10^6/uL (4.5-5.90); Red Cell Distribution Width 15.4 % (11.8-14.3); White Blood Cell 8.5 10^3/uL (4.4-10.8)
[2024-10-23 12:31] LABS: Albumin 3.8 g/dL (3.2-4.8); Anion Gap 11 (5-15); Aspartate Aminotransferase 22 U/L (13-40); BUN/Creatinine Ratio 5.3 (10.0-20.0); Calcium 8.9 mg/dL (8.7-10.4); Carbon Dioxide 25 mmol/L (20-31); Potassium 3.7 mmol/L (3.5-5.1)
[2024-10-23 12:32] LABS: Bilirubin, Total 0.5 mg/dL (0.2-1.0); Total Protein 7.4 g/dL (5.7-8.2)
[2024-10-23 12:40] LABS: Alanine Aminotransferase < 9 U/L (7-40); Alkaline Phosphatase 203 U/L (46-116); Blood Urea Nitrogen 36 mg/dL (9-23); Chloride 98 mmol/L (98-107); Glucose 176 mg/dL (74-106); Sodium 134 mmol/L (136-145)
[2024-10-23 13:00] VITALS: BP 105/67; PULSE 72; RESP 20; TEMP 98.7; O2SAT 98
[2024-10-23 16:40] VITALS: BP 122/77; PULSE 73; RESP 18; TEMP 98.8; O2SAT 95
[2024-10-23] MEDS ORDERED: HYDR-4072 PO (16:59)
[2024-10-23] MEDS ORDERED: ZOFR4T PO (16:59)
[2024-10-23] MEDS ORDERED: FURO40TA4 PO (16:59)
[2024-10-23] MEDS ORDERED: PANT40TA2 PO (16:59)
[2024-10-23] MEDS ORDERED: CARV-214 PO (16:59)
[2024-10-23] MEDS ORDERED: BACDST PO (16:59)
--- NOTE | 2024-10-23 17:23 | DVHPN2 ---
Progress Note Date Seen: Oct 23, 2024 Medical Necessity Reason Pt with a Central, PICC or Fol: No Objective vital signs Vital Sign Date Time Temp Pulse Resp B/P (MAP) Pulse Ox O2 Delivery O2 Flow Rate FiO2 10/23/24 16:40 98.8 73 18 122/77 (92) 95 98.8 10/23/24 08:00 Nasal Cannula* 2 28 Total Intake and Output 10/22/24 10/22/24 10/23/24 15:00 23:00 07:00 Intake Total 50 ml 940 ml 550 ml Output Total 600 ml 500 ml Balance 50 ml 340 ml 50 ml medications Current Medications Medications Dose Ordered Sig/Joshua Route Start Time Stop Time Status Last Admin Dose Admin Docusate Sodium 100 mg BIDPRN PRN PO 10/15/24 12:15 10/17/24 00:53 100 MG Nitroglycerin 0.4 mg Q5MINP PRN SL 10/15/24 12:15 Diagnostic Test (Pha) 1 strip Q6HR 10/15/24 18:00 10/23/24 12:37 1 STRIP Insulin Human Regular Q6HR SC 10/15/24 18:00 10/23/24 12:57 3 UNITS Dextrose 50 ml UD PRN IV 10/15/24 12:15 Metronidazole 100 ml @ 100 mls/hr Q8HR IV 10/15/24 14:00 10/23/24 14:50 100 MLS/HR Cefepime HCl 50 ml @ 12.5 mls/hr DAILY IV 10/16/24 10:00 10/23/24 10:09 12.5 MLS/HR Heparin Sodium (Porcine) 5,000 units Q12HR SC 10/16/24 22:00 10/23/24 10:17 5,000 UNITS Insulin Glargine 15 units HS SC 10/16/24 22:00 10/22/24 23:44 15 UNITS Pantoprazole Sodium 40 mg DAILY IV 10/19/24 10:00 10/23/24 10:09 40 MG Carvedilol 3.125 mg Q12HR PO 10/20/24 22:00 10/23/24 10:11 3.125 MG Hydralazine HCl 10 mg Q4HP PRN IV 10/20/24 11:45 10/20/24 14:16 10 MG Hydromorphone HCl 0.25 mg Q4HPRN PRN IV 10/20/24 17:00 10/23/24 10:10 0.25 MG Acetaminophen/ Hydrocodone Bitart 1 tab Q4HPRN PRN PO 10/21/24 14:30 10/23/24 12:38 1 TAB Furosemide 80 mg MWF PO 10/23/24 10:00 10/23/24 10:10 80 MG Lactulose 30 ml QID PO 10/22/24 18:00 10/23/24 12:37 30 ML laboratory and microbiology Laboratory Tests 10/23/24 11:52 Test 10/23/24 11:52 Range/Units Serum Glucose 176 H 74-106 mg/dL Microbiology Date/Time Source Procedure Growth Status 10/18/24 15:40 Sputum Gram Stain - Final Complete 10/18/24 15:40 Sputum Respiratory Culture - Final Complete 10/16/24 09:30 Foot Right Gram Stain - Final Complete 10/16/24 09:30 Wound Culture - Final Enterobacter cloacae Stenotrophomonas maltophilia Klebsiella oxytoca Complete Problem List/Assessment/Plan Problem List/Assessment/Plan AFEBRILE VSS ABD SOFT LESS TENDER WBC DOWN WOUNDS HEALING DRAIN SEROSANGUINEOUS 30 CC CONTINUE CLOSE OBSERVATION BM+ FLATUS + PIEDAD DIET NURSE AT BEDSIDE CLEARED FOR DISCHARGE INSTRUCTIONS RE DIET ACTIVITY DRAIN CARE GIVEN Plan discussed with: Patient Dietary Evaluation Review Comments: 1) Advance pt diet when medically feasible to a Cardiac/CCHO 60g/Renal Standard diet 2) Continue current plan of care Expected Outcomes/Goals: 1) Pt diet to advance 2) F/U in 2-3 days AUSTYN ROJAS MD Oct 23, 2024 17:23
[2024-10-23 20:00] VITALS: PULSE 78; RESP 20; O2SAT 95
--- NOTE | 2024-10-23 20:49 | DVHDSRES ---
Discharge Summary Date of Admission Resident Creating Document: DYLLAN SENIOR RESDIENT Oct 15, 2024 at 12:08 Date of Discharge: Oct 23, 2024 Admitting Diagnosis Acute cholecystitis Labs/Diagnostic Data: Laboratory Results Test 10/23/24 12:34 10/23/24 11:52 10/22/24 06:00 10/19/24 14:30 POC Glucose 176 mg/dl (70-106) White Blood Count 8.5 10^3/uL (4.4-10.8) Red Blood Count 3.56 10^6/uL (4.5-5.90) Hemoglobin 11.0 g/dL (13.5-17.5) Hematocrit 33.1 % (41.0-53.0) Mean Corpuscular Volume 93.0 fL (80.0-100.0) Mean Corpuscular Hemoglobin 30.9 pg (28.0-32.0) Mean Corpuscular Hemoglobin Concent 33.3 g/dL (32.0-36.0) Red Cell Distribution Width 15.4 % (11.8-14.3) Platelet Count 387 10^3/uL (140-450) Mean Platelet Volume 8.5 fL (6.9-10.8) Neutrophils (%) (Auto) 74.1 % (37.0-80.0) Lymphocytes (%) (Auto) 13.0 % (10.0-50.0) Monocytes (%) (Auto) 8.9 % (0.0-12.0) Eosinophils (%) (Auto) 3.3 % (0.0-7.0) Basophils (%) (Auto) 0.7 % (0.0-2.0) Neutrophils # (Auto) 6.3 10 ^3/uL (1.6-8.6) Lymphocytes # (Auto) 1.1 10 ^3/uL (0.4-5.4) Monocytes # (Auto) 0.8 10 ^3/uL (0-1.3) Eosinophils # (Auto) 0.3 10 ^3/uL (0-0.8) Basophils # (Auto) 0.1 10 ^3/uL (0-0.2) Nucleated Red Blood Cells 0.1 % Sodium Level 134 mmol/L (136-145) Potassium Level 3.7 mmol/L (3.5-5.1) Chloride Level 98 mmol/L (98-107) Carbon Dioxide Level 25 mmol/L (20-31) Anion Gap 11 (5-15) Blood Urea Nitrogen 36 mg/dL (9-23) Creatinine 6.81 mg/dL (0.700-1.30) Glomerular Filtration Rate Calc 9 mL/min (>90) BUN/Creatinine Ratio 5.3 (10.0-20.0) Serum Glucose 176 mg/dL (74-106) Calcium Level 8.9 mg/dL (8.7-10.4) Total Bilirubin 0.5 mg/dL (0.2-1.0) Aspartate Amino Transferase (AST) 22 U/L (13-40) Alanine Aminotransferase (ALT) < 9 U/L (7-40) Alkaline Phosphatase 203 U/L (46-116) Total Protein 7.4 g/dL (5.7-8.2) Albumin 3.8 g/dL (3.2-4.8) Differential Total Cells Counted 100.0 (100) Neutrophils % (Manual) 77 (37.0-80.0) Band Neutrophils % (Manual) 1 Lymphocytes % (Manual) 6 (10.0-50.0) Monocytes % (Manual) 10 (0-12) Eosinophils % (Manual) 5 (0-7) Basophils % (Manual) 0 (0.0-2.0) Metamyelocytes % (manual) 1 Myelocytes % (Manual) 0 Promyelocytes % (Manual) 0 Blast Cells % (Manual) 0 Reactive Lymphocytes 0 Platelet Estimate Adequate Hepatitis B Surface Antigen Negative (Negative) Test 10/19/24 11:03 10/19/24 07:29 10/19/24 05:30 10/18/24 22:57 Blood Gas Specimen Type Arterial Blood Gas Sample Site Arterial line Blood Gas Patient Temperature 37.0 Arterial Blood Date Drawn [id number] Arterial Blood pH 7.372 (7.350-7.450) Arterial Blood Partial Pressure CO2 34.1 mmHg (35.0-48.0) Arterial Blood Partial Pressure O2 97.2 mmHg (83.0-108.0) Arterial Blood HCO3 19.4 mmol/L (21.0-28.0) Arterial Blood Oxygen Saturation 95.9 % (94.0-98.0) Arterial Blood Base Excess -5.2 mmol/L (-2.0-3.0) Arterial Blood Oxyhemoglobin 95.2 % (94.0-98.0) Arterial Blood Carboxyhemoglobin 0.4 % (0.5-1.5) Arterial Blood Methemoglobin 0.3 % (0.0-1.5) Ángel Test N/a Blood Gas Total Hemoglobin 10.30 g/dL (13.5-17.5) Blood Gas Modality Vent - cpap FiO2 % 30.0 Blood Gas Pressure Support 8 Blood Gas PEEP or CPAP 5.0 Blood Gas Set Respiration Rate 18.0 Blood Gas Tidal Volume 500.0 Magnesium Level 2.9 mg/dL (1.6-2.6) Troponin I High Sensitivity 18 ng/L (</=54) Test 10/18/24 19:25 10/18/24 05:20 10/17/24 15:57 10/17/24 05:54 Lactic Acid Level 0.8 mmol/L (0.4-2.0) Prothrombin Time 12.2 sec (9.3-11.8) Prothrombin Time INR 1.16 (0.9-1.15) Activated Partial Thromboplast Time 30.1 SEC (24.5-34.5) Estimated GFR () 12 mL/min Estimated GFR (Non- 10 mL/min Phosphorus Level 4.8 mg/dL (2.4-5.1) Random Vancomycin Level 18.1 ug/mL (5-10) Reticulocyte Count (auto) 1.36 % (0.5-1.5) Haptoglobin 379 mg/dL (29-370) Lactate Dehydrogenase 168 U/L (120-246) Hemoglobin A1c 9.2 % A1C (<5.7) Test 10/15/24 08:39 Lipase 44 U/L (12-53) Other Laboratory Tests 10/23/24 11:52 Brief Hx & Hospital Course: A 49-year-old male with a history of end-stage renal disease on dialysis, hypertension, coronary artery bypass graft (CABG), and type 2 diabetes mellitus, presented to the emergency department with severe abdominal pain for four days. The pain, located in the epigastric and right upper quadrant, was accompanied by nausea and multiple episodes of yellowish, frothy vomiting. After seeking initial treatment in [place], his symptoms persisted, leading to a loss of appetite and limited fluid intake. During a dialysis session, his pain intensified, necessitating ambulance transport to the hospital. He denies smoking, alcohol, or drug use and is on multiple medications, including carvedilol, Entresto, isosorbide mononitrate, insulin, phosphorus binders, hydralazine, atorvastatin, and aspirin. The patient was admitted with acute cholecystitis, confirmed by a CT scan, and underwent a laparoscopic cholecystectomy. During surgery, the patient became bradycardic and was treated with atropine and epinephrine, but subsequently lost pulse, requiring CPR for about 90 seconds until a pulse was regained. Cardiology was consulted, and an ECG showed normal sinus rhythm with right bundle branch block and borderline ST segment changes. The patient received vancomycin, Zosyn, and metronidazole for treatment. Additionally, the patient had a diabetic foot evaluated by podiatry, which recommended antibiotics and follow-up. Hemodialysis was continued, and electrolyte imbalances were corrected. By 10/23, the patient was hemodynamically stable and was discharged home with a follow-up plan. Discharge plan: Follow up with the PCP within 1 week of the discharge Follow up with the discharge Clinic within 1 week of the discharge Follow up with the Podiatry, for the possible intervention for the diabetic foot Follow up with the surgery for the evaluation of DVT, and removal Carvedilol 3.125 mg b.i.d. Next item furosemide 40 mg daily [place] for the pain as needed t.i.d. Ondansetron for the vomiting as needed Autonomous 40 mg daily Bactrim DS b.i.d. for 10 days Continue home medicine Operations or Procedures [place] [address] Ph: [phone] DIAGNOSTIC IMAGING Diagnostic Imaging Report : [id number] Signed PATIENT: SANDRA MENDES JACCT: [id number] UNIT: [id number] : 1975 LOC: OVERFLOW ROOM / BED: [address] [place] [address] / A AGE / SEX: 49 / M ADM STATUS: ADM IN SERVICE 1612 ORDERING PHYSICIAN: OSVALDO VIDALES DNP PROCEDURE(s): [facility] - ECHO 2D MODE CARDIAC DOP REASON: surgery ORDER NUMBER(s): [id number], ACCESSION NUMBER(s): [id number] APPROVED REPORT EXAM: Two-dimensional and M-mode echocardiogram with Doppler and color Doppler. Blood Pressure: 131/74 mmHg INDICATION Pre-Op Surgery/Intervention CABG: RISK FACTORS Obesity: Height: 6'0", Weight: 230 DIMENSIONS LVDd 5.9 (3.8-5.7cm) LA (2D) 4.9 (1.9-4.0cm) Aortic Root 3.4 (2.0- 3.7cm) LVDs 4.9 (2.5-4.0cm) LA (MM) (1.9-4.0cm) Aortic Cusp Exc 2.3 (1.5- 2.0cm) EF (%) 35.0 (55-70%) Rt. Atrium 4.2 (1.9-4.0cm) Asc. Aorta cm IVSd 1.4 (0.7-1.1cm) RV (D) 4.7 (1.8-2.4cm) PWd 1.3 (0.7-1.1cm) Mitral Valve Mitral Mitral Stenosis E wave 1.23m/s MV Mean GR. mmHg A wave 0.68m/s MV Peak GR. mmHg E/A ratio 1.8 2D MVA cm2 DECEL Time 121ms PRESS 1/2 Time ms Aortic Valve Aortic Valve Aortic Stenosis V1 0.80m/s AO Mean GR. 3mmHg V2 1.23m/s AO Peak GR. 6mmHg LVOT Diameter 2.3 (1.8-2.4cm) Doppler ADILIA 2.70cm2 Tricuspid Valve TR Velocity 2.96m/s RVSP 43mmHg Other Information Quality : Limited Rhythm : Technically limited study due to body habitus and CABG. Conclusion Severely dilated left ventricle. Severely reduced left ventricular systolic function estimated ejection fraction 35%. There is a grade 2 diastolic dysfunction. Normal left ventricular size and dimension. Normal left ventricular systolic function. [id number] elevated right ventricular systolic pressure 40 mm of mercury. Mildly dilated left atrium. Normal-sized right atrium. Normal aortic valve structure and function. Normal mitral valve structure and function. Normal tricuspid valve structure and function. The pulmonary valve is grossly normal. No pericardial effusion. SIGNED BY: TEODORA CLARK MD SIGNED DATE/TIME: 10/15/24 2250 CC: Condition at Discharge: Good Final Diagnosis/Problems List Status post cardiac arrest (due to pulseless electrical activity), and ROSC with CPR Acute hypoxic respiratory failure likely due to status post cardiac arrest/post surgery/atelectasis Acute on chronic systolic heart failure Atelectasis, likely due to status post surgery Acute abdominal pain due to acute cholecystitis, status post cholecystectomy Intractable nausea and vomiting due to acute cholecystitis Sepsis likely due to acute cholecystitis/diabetic foot ulcer Ruled out pulmonary emboli Ischemic cardiomyopathy Status post CABG Diabetic foot ulcer ESRD on maintenance hemodialysis Uncontrolled diabetes mellitus type 2 with hyperglycemia Hyponatremia Hypomagnesemia Obesity Ruled out pneumonia, aspiration Bulimia Hypertension ruled out pulmonary emboli in mixed and history of lipase Bradycardia Mild anemia, likely due ESRD Discharge Disposition: Home Discharge Instruct/Medications Diet: Cardiac 2g Na,low cholest Activity: No Restrictions, As Tolerated Follow Up/Referral: follow up with the PCP within one week after discharge follow up within one week with surgery on outpatient basis. Medications: Batrim DS BID for 10 days narco daily for 7 days lasix 40 mg daily continue home medication Discharge Statement: "Patient was advised to return to the ER or call 911 if any headaches, dizziness, shortness of breath, chest pain, abdominal pain, bleeding, fevers, or worsening of medical condition. Patient was counseled about treatment plan, medications, possible side effects, patientverbalized understanding. All questions were answered to the best of my ability. This discharge took greater then 30 minutes in planning, reviewing documentation, counseling the patient, and discussing with other team members." ASSESSMENT ASSESSMENT Assessment cholycystits Date of Service: Oct 23, 2024 Billing Provider: GHAZALA HACKETT MD Common Visit Codes: 41091-ZGM/OBS DISCH DAY >30min DYLLAN SENIOR RESDIENT Oct 23, 2024 20:49 GHAZALA HACKETT MD Oct 28, 2024 11:59
--- NOTE | 2024-10-23 22:56 | DVHPN2 ---
Progress Note - Dictate Date Seen: Oct 23, 2024 Medical Necessity Reason Pt with a Central, PICC or Fol: No Subjective Patient seen and examined at bedside. Breathing comfortably on room air. Overnight events reviewed. vital signs Vital Sign Date Time Temp Pulse Resp B/P (MAP) Pulse Ox O2 Delivery O2 Flow Rate FiO2 10/23/24 20:00 78 20 95 Nasal Cannula* 2 28 10/23/24 16:40 98.8 122/77 (92) 98.8 Total Intake and Output 10/22/24 10/22/24 10/23/24 15:00 23:00 07:00 Intake Total 50 ml 940 ml 550 ml Output Total 600 ml 500 ml Balance 50 ml 340 ml 50 ml objective Gen.: Patient lying in bed in no apparent distress. Breathing on room air. Head: Normocephalic, atraumatic. Eyes: EOMI/PERRLA. Ears: Normal hearing. Normal anatomy. Neck/trachea: Trachea midline, supple. Nose: Normal external anatomy. Mouth: Moist mucous membranes. Chest: Decreased air entry bilaterally. No wheezing or rhonchi. Cardiovascular: Positive S1, positive S2. Regular rate and rhythm. Abdomen: Positive bowel sounds in all 4 quadrants. Soft, non-tender, non- distended. : Deferred. Rectal: Deferred. Skin: Warm, dry. Intact. Extremities: 2+ radial pulses bilaterally. No lower extremity edema. Neuro: Awake, alert, oriented x3. No gross motor or sensory deficits. Cranial nerves II through XII intact. Gait not assessed. laboratory and microbiology Laboratory Tests 10/23/24 11:52 Test 10/23/24 11:52 Range/Units Serum Glucose 176 H 74-106 mg/dL Assessment/Plan Impression: Acute hypoxic respiratory failure Status post cardiac arrest Return of spontaneous circulation Status post laparoscopic cholecystectomy with lysis of adhesions CAD status post CABG CHF Diabetes mellitus type 2 End-stage renal disease on hemodialysis Obesity with a BMI of 39 Events: Breathing on room air No respiratory distress. S/p hemodialysis yesterday, removed 3 liters. Continue antibiotics Incentive spirometry Pain control Avoid oversedation HD per Nephrology Monitor renal function Labs and imaging reviewed. Rest of plan as noted below. Plan: S/p extubation on 10/19/24 Supplemental oxygen PRN Titrate to keep O2 sats above 92%. Off sedation. Off pressors, hemodynamically stable. Continue antibiotics. F/u cultures. Hemodialysis per nephrology Monitor renal function Monitor electrolytes. Supplement as necessary. Nephrology recommendations appreciated. Nutritional support. Monitor hemoglobin Right foot wound Care Accu-Cheks, insulin sliding scale. GI prophylaxis-Protonix DVT prophylaxis. SCDs Prognosis: Poor given multiple comorbidities. Rest of plan per hospitalist and other consultants. Thank you Dr. Green for allowing me to participate in this patient's care. Further recommendations will depend on patient's clinical course. Please do not hesitate to contact me if you have any questions or concerns. This medical document was created using an electronic medical record system with [employer] dictation system. Although this document has been carefully reviewed, there may still be some phonetic and typographical errors. These areas are purely typographical due to imperfections of the software programs, and do not reflect any compromise in the patient's medical care. Dietary Evaluation Review Comments: 1) Advance pt diet when medically feasible to a Cardiac/CCHO 60g/Renal Standard diet 2) Continue current plan of care Expected Outcomes/Goals: 1) Pt diet to advance 2) F/U in 2-3 days Plan discussed with: Patient, Other (RN Summer) FRANCHESKA PEREZ MD Oct 23, 2024 22:56
[2024-10-24] MEDS ORDERED: SODIUM CHL 0.9% 1000 ML BAG XX ONE (07:00)
[2024-10-24] MEDS ORDERED: EPOETIN ALFA-EPBX 10,000 UNIT/1ML VIAL SC ONE (21:00)
--- NOTE | 2024-11-01 10:12 | RESUS ---
CODE BLUE ASSESSSMENT History of Events History of Events: Patient surgery for Lap екатерина was completed and they were waking the patient up from anesthesia and the patient was breathing on his own wtih intubation tube still in place, then patient began to have bradycardia heart rate went from 41 to 31 code preethi was called and compressions were started to assist patient. Initial Information Date: Oct 18, 2024 Time: 15:15 Location of Arrest: OR Arrest Witnessed: Yes CPR started initial time: 15:15 CPR started by whom: Hospital Staff Pre-Hospital Care: ACLS Type of arrest: Cardiac, Witnessed Spontaneous Respirations: Yes Pulse Present: Yes Monitoring: ECG, Pulse Oximetry, Telemetry Crash Cart Opened and Supplies: Yes Airway Ventilation Breathing at Onset: Spontaneous Oxygen Delivery Method: Mechanical Ventilator Artificial Ventilation: Bag/Endo tube Comments: Patient was intubated prior to surgery see anesthesia and surgical record. Circulation Circulation : Time: 15:15 Pulse Rate (adult): 31 Circulation Comment: please see anesthesia and surgical record for all othe times Medications & Response Medications and Responses #1: Medication Time: 15:15 ADULT Medications Given ADULT: Atropine 1 mg Route of Administration: IV Medications and Responses #2: Medication Time: 15:15 ADULT Medications Given ADULT: Epinephrine 1 mg Route of Administration: IV Nurses Notes Nurses Notes - Comment: see anesthesia record Time Code Ended Time Code Ended: 15:17 Post Arrest Status: Ventilated Outcome of code: Successful Family notified: Yes Attending called: Yes Code Team Present: Dr. Alanis Anesthesia, Alexandre HUMAN SERVICES WORKER, Terri Muñoz Stephanie HUMAN SERVICES WORKER, Dr. Cortes Anesthesia, Dr. Olimpia Zimmerman Surgeon ROSC Time of ROSC: 15:17 Sandra Verma Nov 01, 2024 10:12
--- NOTE | 2024-11-06 08:17 | ECG ---
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
--- NOTE | 2024-11-06 12:23 | ECG ---
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
== END 2024-10-23 21:30 | disposition home or self-care (01) | DRG 853 ==
LOC: EDBD 08:02 → ER 08:02 → OVERFLOW 12:08 → TELE-CENTR 10-16 01:31 → CENTRAL 10-16 11:59 → ICU WEST 10-18 17:58 → TELE-EAST 10-20 19:03 → EAST 10-22 16:19
PROVIDERS: ADMIT Student in an Organized Health Care Education/Training Program; ATTEND Student in an Organized Health Care Education/Training Program
PROC: 0FT44ZZ Resection of Gallbladder, Percutaneous Endoscopic Approach (ICD-10-PCS; 2024-10-18)
PROC: 0BH17EZ Insertion of Endotracheal Airway into Trachea, Via Natural or Artificial Opening (ICD-10-PCS; 2024-10-18)
PROC: 5A12012 Performance of Cardiac Output, Single, Manual (ICD-10-PCS; 2024-10-18)
PROC: 02HV33Z Insertion of Infusion Device into Superior Vena Cava, Percutaneous Approach (ICD-10-PCS; 2024-10-18)
PROC: B548ZZA Ultrasonography of Superior Vena Cava, Guidance (ICD-10-PCS; 2024-10-18)
PROC: 05HM33Z Insertion of Infusion Device into Right Internal Jugular Vein, Percutaneous Approach (ICD-10-PCS; 2024-10-18)
PROC: B543ZZA Ultrasonography of Right Jugular Veins, Guidance (ICD-10-PCS; 2024-10-18)
PROC: 5A1935Z Respiratory Ventilation, Less than 24 Consecutive Hours (ICD-10-PCS; principal; 2024-10-18 12:45)
DX: A41.9 Sepsis, unspecified organism (principal); I46.9 Cardiac arrest, cause unspecified; J96.01 Acute respiratory failure with hypoxia; N18.6 End stage renal disease; K65.1 Peritoneal abscess; K80.00 Calculus of gallbladder with acute cholecystitis without obstruction; I13.2 Hypertensive heart and chronic kidney disease with heart failure and with stage 5 chronic kidney disease, or end stage renal disease; I50.22 Chronic systolic (congestive) heart failure; J98.11 Atelectasis; E87.1 Hypo-osmolality and hyponatremia; K52.9 Noninfective gastroenteritis and colitis, unspecified; E11.621 Type 2 diabetes mellitus with foot ulcer; I25.5 Ischemic cardiomyopathy; I25.10 Atherosclerotic heart disease of native coronary artery without angina pectoris; E86.0 Dehydration; E78.5 Hyperlipidemia, unspecified; E66.9 Obesity, unspecified; E11.65 Type 2 diabetes mellitus with hyperglycemia; E11.22 Type 2 diabetes mellitus with diabetic chronic kidney disease; L97.519 Non-pressure chronic ulcer of other part of right foot with unspecified severity; K66.0 Peritoneal adhesions (postprocedural) (postinfection); K82.8 Other specified diseases of gallbladder; E83.41 Hypermagnesemia; K82.A1 Gangrene of gallbladder in cholecystitis; Z79.01 Long term (current) use of anticoagulants; Z79.4 Long term (current) use of insulin; Z95.1 Presence of aortocoronary bypass graft; Z86.711 Personal history of pulmonary embolism; Z99.2 Dependence on renal dialysis; Z68.39 Body mass index [BMI] 39.0-39.9, adult; Z79.899 Other long term (current) drug therapy
CPT/HCPCS: 36415; 36556; 36600; 71045; 71275; 73620; 74176; 74181; 76705; 80048; 80053; 80069; 80202; 82805; 82962; 83010; 83036; 83605; 83615; 83690; 83735; 84484; 85007; 85014; 85018; 85025; 85027; 85045; 85610; 85730; 86850; 86900; 86901; 87040; 87070; 87077; 87081; 87186; 87205; 87340; 90935; 92610; 92950; 93005; 93306; 94002; 94003; 97110; 97163; 97530; 99291; G0378; J1100; J1815; J1885; J2003; J2250; J2405; J2470; J2543; J3490